=== PATIENT | male | born 1985 | race Two or more races ===

== ENCOUNTER 2024-02-23 02:19 | Emergency (ER) | payer MEDICAID, SELFPAY ==
--- NOTE | 2024-02-23 02:26 | EKG_ITS ---
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
--- NOTE | 2024-02-23 02:30 | EDNOTE_ITS ---
ED General RME/HPI General Chief complaint: Medical Clearance Stated complaint: DETENTION CLEARANCE Time Seen by Provider: 02/23/24 02:25 Arrival date/time: 02/23/24 02:19 RME / HPI RME / HPI narrative: This section includes all my notes and documentations, including HPI, PE, and ED course. Tushar Orozco MD HPI: 39yo male with a history of aFib BIB [facility] presents to the ED for a medical clearance. Patient states his heart has been beating fast for the last 2 weeks. He states he has not picked up his medications for his aFib. He denies any chest pain, shortness of breath, dizziness or any other associated symptoms. Endorses drinking alcohol tonight, but denies illicit drug use. No other complaints reported. ROS: Respiratory: negative except as documented in HPI. Gastrointestinal: negative except as documented in HPI. Genitourinary: negative except as documented in HPI. Musculoskeletal: negative except as documented in HPI. Skin: negative except as documented in HPI. Neurological: negative except as documented in HPI. Physical Exam: General: Alert and oriented. No acute distress. Eyes: Conjunctivae and lids clear. EOMI. PERRL. ENT: No nasal congestion. Pharynx normal. Tympanic membrane normal bilaterally. Neck: Supple. No lymphadenopathy. No JVD. Heart: Tachycardic. Lungs: No respiratory distress. Good air movement. No rhonchi, wheezing, rales. Chest: No tenderness. Abdomen: Soft and nontender. Normal bowel sounds. No distension. No rebound or guarding. Back: No CVA tenderness. Legs: No clubbing, cyanosis, edema. Skin: Warm and dry. Neuro: Alert and oriented X 3. Cranial Nerves II-XII grossly intact. No peripheral motor deficits. Musculoskeletal: All major joints and bones are not tender with no limited ROM. Diagnostic tests unremarkable for elevated serum alcohol and UDS positive for marijuana. Oral metoprolol given for high BP and tachycardia. He remained stable. Made decision to medical clear him for incarceration. Discharge instructions from Dr. Orozco: 1. After extensive evaluation, there is no life-threatening condition. Such as heart attack or pulmonary embolism (blood clots in your lungs) or pneumothorax (collapsed lung). 2. But you were intoxicated with marijuana on board. 3. Try to quit alcohol and drugs to prevent serious and potentially fatal injuries and illnesses. 4. See a private doctor on 02/25/2024 or when you are released. If needed, ask for help with quitting alcohol and drugs. To make sure there is no serious underlying heart condition, ask to help you get more tests for your heart that cannot be done here in the ER. Such as Holter Monitor (cardiac monitoring at home from a day to even a month), heart stress test (on treadmill or with medication), echocardiogram (imaging of your heart structures), heart catherization (checking for blockages in your heart arteries), and a referral to see a Power Generating Plant Operator. 5. Seek immediate medical care with worsening or with any concerns. Related Data Home Medications ?Medication ?Instructions ?Recorded ?Confirmed sertraline 100 mg tablet (Zoloft) 100 mg PO QDAY 07/02/18 07/27/19 amlodipine 5 mg tablet (Norvasc) 5 mg PO BID High Blood Pressure 07/27/19 07/27/19 Allergies Allergy/AdvReac Type Severity Reaction Status Date / Time Penicillins Allergy Severe DIFFICULTY Verified 06/17/21 08:44 BREATHING Review of Systems Review of Systems Systems Reviewed: All systems reviewed, normal except as documented ED Exam Narrative Physical exam: As noted in HPI. Course Course Course Narrative: CXR is ordered for determining the etiology of palpitations. Quality Measures none Orders Category Date Time Status EKG (ED ONLY) *Do not use* NOW Care 02/23/24 02:26 Completed Saline [Insert IV] NOW Care 02/23/24 02:34 Completed EKG (ED Only) Stat Exams 02/23/24 02:26 Draft XR chest 1V portable Stat Exams 02/23/24 02:35 Completed Alcohol, Blood Medical Stat Lab 02/23/24 02:47 Completed BNP [B-Type Natriuretic Peptide] Stat Lab 02/23/24 02:47 Completed CBC Stat Lab 02/23/24 02:47 Completed CMP [Comprehensive Metabolic Panel] Stat Lab 02/23/24 02:47 Completed D-Dimer Stat Lab 02/23/24 02:47 Completed Drug Screen,Urine Stat Lab 02/23/24 03:32 Completed Magnesium Stat Lab 02/23/24 02:47 Completed TSH [Thyroid Stimulating Hormone] Stat Lab 02/23/24 02:47 Completed Troponin I Stat Lab 02/23/24 02:47 Completed Metoprolol Tartrate Inj [Lopressor Inj] Med 02/23/24 02:34 Discontinued 2.5 mg IVP X1 ONE Metoprolol Tartrate [Lopressor] Med 02/23/24 03:03 Discontinued 25 mg PO X1 ONE Metoprolol Tartrate [Lopressor] Med 02/23/24 02:34 Discontinued 50 mg PO X1 ONE Vital Signs Vital signs: Vital Signs Temperature 98.8 F 02/23/24 02:36 Pulse Rate 140 H 02/23/24 02:36 Respiratory Rate 16 02/23/24 02:36 Blood Pressure 141/121 H 02/23/24 02:36 Pulse Oximetry (%) 96 02/23/24 02:36 Oxygen Delivery Method Room Air 02/23/24 02:36 [facility] Patient data External records reviewed:: [facility] previous records (Per chart review, patient was seen here on 05/25/22 for alcohol intoxication.) Clinical information provided by:: patient Social determinants that could affect healthcare access:: alcohol use Patient has the following chronic illnesses:: aFib How is presenting disease/condition affected by chronic disease/condition?: c aused by Evaluation data The following diagnostics were reviewed and interpreted by me:: lab results, radiology exam(s) and EKG tracing(s) (My interpretation of the EKG is: Sinus tachycardia versus 2:1 atrial flutter (130 bpm) with nonspecific ST-T changes. Tushar Orozco MD) Lab and/or radiology exams considered but not ordered:: none Interpretation Summary: See HPI. Medications Medications considered but not ordered:: none Medication administrations:: Medication Administration History Discontinued Medications Metoprolol Tartrate (Metoprolol Tartrate 25 Mg Tablet) 50 mg PO X1 ONE Stop: 02/23/24 02:35 Last Admin: 02/23/24 03:17 Dose: Not Given Documented By: RC Non-Admin Reason: Discontinued Metoprolol Tartrate (Metoprolol Tartrate Inj 1 Mg/Ml Amp 5 Ml) 2.5 mg IVP X1 ONE Stop: 02/23/24 02:35 Last Admin: 02/23/24 03:17 Dose: Not Given Documented By: RC Non-Admin Reason: Discontinued Metoprolol Tartrate (Metoprolol Tartrate 25 Mg Tablet) 25 mg PO X1 ONE Stop: 02/23/24 03:04 Last Admin: 02/23/24 03:25 Dose: 25 mg Documented By: TC see above, if any Consultations Consultation(s) initiated? (list below): No Diagnosis Differential Diagnosis ED Complaint MDM: aFib, anxiety, alcohol intoxication, drug intoxication Most likely diagnosis given after review of the tests above:: see below Admission Indicated Admission indicated?: not indicated Explain why admission is indicated or not indicated:: Admission criteria not met Admission Request Was there a request for admission?: No Disposition Plan Disposition Plan: Discharge Discharge Attestation Discharge Attestation: The patient and all family members were given an opportunity to ask questions and understood the discharge instructions. Discharge instructions specifically effects, indications for sooner follow up or return to the emergency department, and the expected course of current diagnosis. Patient condition: Stable Medical Decision Making Differential Diagnosis Differential Diagnosis: aFib, anxiety, alcohol intoxication, drug intoxication Lab Data 02/23/24 02:47 02/23/24 02:47 Labs: Lab Results 02/23/24 02/23/24 Range/Units 02:47 03:32 WBC 9.8 (3.8-10.6) Thou/mm3 RBC 5.38 (4.50-5.90) Miln/mm3 Hgb 16.3 H (13.5-16.0) g/dL Hct 45.4 (41.0-53.0) % MCV 84 (80-100) fL MCH 30.3 (25.0-35.0) pg MCHC 35.9 (31.0-37.0) g/dl RDW Std Deviation 42.2 (35.1-43.9) fL Plt Count 239 (140-440) Thou/mm3 Neut % (Auto) 63 (37-80) % Lymph % (Auto) 26 (10-50) % [place] % (Auto) 10 (0-12) % Eos % (Auto) 1 (0-10) % Baso % (Auto) 1 (0-2.5) % Neut # (Auto) 6.1 (1.8-7.7) Thou/mm3 Lymph # (Auto) 2.5 (1.0-4.8) Thou/mm3 [place] # (Auto) 1.0 H (0.0-0.8) Thou/mm3 Eos # (Auto) 0.1 (0.0-0.5) Thou/mm3 Baso # (Auto) 0.1 (0.0-0.2) Thou/mm3 Immature Gran # (Auto) 0.05 H (0.00-0.00) Thou/mm3 Absolute Nucleated RBC 0.00 (0.00-0.00) Thou/mm3 Immature Gran % 1 H (0-0) % Nucleated RBC % 0 (0) /100 WBC D-Dimer < 250 (<600) ng/mL Sodium 142 (136-145) mMol/L Potassium 3.8 (3.4-5.1) mMol/L Chloride 109 H (98-107) mMol/L Carbon Dioxide 21.9 (20.0-31.0) mMol/L Anion Gap 11 (7-16) BUN 10 (9-23) mg/dL Creatinine 1.0 (0.6-1.3) mg/dL Estim Creat Clear Calc 100.2 (>60) mL/min eGFR > 60 (60 - ) See Note BUN/Creatinine Ratio 10 L (12-20) Ratio Glucose 98 (74-106) mg/dL Calculated Osmolality 282 (275-295) Calcium 9.3 (8.3-10.6) mg/dL Corrected Calcium 9.3 (8.5-10.1) mg/dL Magnesium 2.1 (1.6-2.6) mg/dL Total Bilirubin 0.4 (0.3-1.2) mg/dL AST 12 (0-34) U/L ALT 11 (10-49) U/L Alkaline Phosphatase 98 (46-116) U/L Troponin I < 0.002 (0.0-0.045) ng/mL B-Natriuretic Peptide < 20 (0-100) pg/mL Total Protein 7.6 (5.7-8.2) gm/dL Albumin 4.9 (3.5-5.0) gm/dL Globulin 2.7 (2.3-3.5) gm/dL Albumin/Globulin Ratio 1.8 (1.2-2.2) TSH 2.94 (0.55-4.78) uIU/mL Urine Opiates Screen Negative (Negative) Urine Fentanyl Screen Negative (Negative) Ur Barbiturates Screen Negative (Negative) U Amphetamin/Meth Scrn Negative (Negative) U Benzodiazepines Scrn Negative (Negative) U Cocaine Metab Screen Negative (Negative) U Marijuana (THC) Screen Positive A (Negative) Ethyl Alcohol 185.2 H (0-10.0) mg/dL Discharge Plan Plan Patient Disposition: Senior Care/Court/Law Prescriptions/Referrals Prescriptions/Med Rec: No Action sertraline [Zoloft] 100 mg Tablet 100 mg PO QDAY amlodipine [Norvasc] 5 mg Tablet 5 mg PO BID Referrals: Glenna Armstrong FNP [Primary Care Provider] - In 1 week Problem List Clinical Impression: Alcohol intoxication Patient/Caregiver Discharge Instructions Discharge Activity: activity as tolerated Education Materials: ED Alcohol Intoxication Additional Instructions: Discharge instructions from Dr. Orozco: 1. After extensive evaluation, there is no life-threatening condition.? Such as heart attack or pulmonary embolism (blood clots in your lungs) or pneumothorax (collapsed lung). 2. But you were intoxicated with marijuana on board. 3. Try to quit alcohol and drugs to prevent serious and potentially fatal injuries and illnesses. 4. See a private doctor on 02/25/2024 or when you are released. If needed, ask for help with quitting alcohol and drugs. To make sure there is no serious underlying heart condition, ask to help you get more tests for your heart that cannot be done here in the ER.? Such as Holter Monitor (cardiac monitoring at home from a day to even a month), heart stress test (on treadmill or with medication), echocardiogram (imaging of your heart structures), heart catherization (checking for blockages in your heart arteries), and a referral to see a Power Generating Plant Operator. 5. Seek immediate medical care with worsening or with any concerns.?? Print Language: Wallisian
--- NOTE | 2024-02-23 02:35 | XR_ITS ---
Examination: AP chest single view Technique: AP portable upright chest single view Exam date and time: February 23, 2024 0252 hrs. Comparison 12/26/2017 Indications: Shortness of breath today. Findings: Subtle opacity at the left lung base Normal heart size The osseous structures are intact Impression: Suspicious for early left lower lobe pneumonia
[2024-02-23 02:36] VITALS: BP 141/121; PULSE 140; RESP 16; TEMP 37.1; O2SAT 96
[2024-02-23 02:39] VITALS: BMI 26.6
[2024-02-23 02:53] VITALS: BP 123/75; PULSE 121; RESP 18; O2SAT 99
[2024-02-23 03:07] LABS: Basophils # (Auto) 0.1 Thou/mm3 (0.0-0.2); Basophils % (Auto) 1 % (0-2.5); Eosinophils # (Auto) 0.1 Thou/mm3 (0.0-0.5); Eosinophils % (Auto) 1 % (0-10); Hematocrit 45.4 % (41.0-53.0); Hemoglobin 16.3 g/dL (13.5-16.0); Immature Granulocytes % (Auto) 1 % (0-0); Immature Granulocytes Auto 0.05 Thou/mm3 (0.00-0.00); Lymphocytes # (Auto) 2.5 Thou/mm3 (1.0-4.8); Lymphocytes % (Auto) 26 % (10-50); Mean Corpuscular HGB Conc 35.9 g/dl (31.0-37.0); Mean Corpuscular Hemoglobin 30.3 pg (25.0-35.0); Mean Corpuscular Volume 84 fL (80-100); Monocytes % (Auto) 10 % (0-12); Neutrophils # (Auto) 6.1 Thou/mm3 (1.8-7.7); Neutrophils % (Auto) 63 % (37-80); Nucleated Red Blood Cell % 0 /100 WBC (0); Platelet Count 239 Thou/mm3 (140-440); RDW Standard Deviation 42.2 fL (35.1-43.9); Red Blood Count 5.38 Miln/mm3 (4.50-5.90); White Blood Count 9.8 Thou/mm3 (3.8-10.6)
[2024-02-23 03:25] VITALS: BP 121/79; PULSE 115
[2024-02-23] MEDS: METOPROLOL TARTRATE 25 MG TABLET PO (03:25)
[2024-02-23 03:27] LABS: Alanine Aminotransferase 11 U/L (10-49); Albumin, Serum 4.9 gm/dL (3.5-5.0); Albumin/Globulin Ratio 1.8 (1.2-2.2); Alcohol, Blood Medical 185.2 mg/dL (0-10.0); Alkaline Phosphatase 98 U/L (46-116); Anion Gap 11 (7-16); Aspartate Amino Transferase 12 U/L (0-34); BUN/Creatinine Ratio 10 Ratio (12-20); Bilirubin,Total 0.4 mg/dL (0.3-1.2); Blood Urea Nitrogen 10 mg/dL (9-23); Calcium 9.3 mg/dL (8.3-10.6); Calcium (Corrected) 9.3 mg/dL (8.5-10.1); Carbon Dioxide 21.9 mMol/L (20.0-31.0); Chloride 109 mMol/L (98-107); D-Dimer < 250 ng/mL (<600); Estimated Creatinine Clearance 100.2 mL/min (>60); Globulin 2.7 gm/dL (2.3-3.5); Glucose 98 mg/dL (74-106); Magnesium 2.1 mg/dL (1.6-2.6); Osmolality,Calculated 282 (275-295); Potassium 3.8 mMol/L (3.4-5.1); Sodium 142 mMol/L (136-145); Thyroid Stimulating Hormone 2.94 uIU/mL (0.55-4.78); Total Protein 7.6 gm/dL (5.7-8.2); Troponin I < 0.002 ng/mL (0.0-0.045); eGFR > 60 See Note
[2024-02-23 03:34] LABS: B-Type Natriuretic Peptide < 20 pg/mL (0-100)
[2024-02-23 04:03] LABS: Amphetamine/Methamp Scrn,U Negative (Negative); Barbiturate Screen,Urine Negative (Negative); Benzodiazepines Screen,Urine Negative (Negative); Benzoylecgonine Screen, Ur Negative (Negative); Fentanyl Screen,Urine Negative (Negative); Opiate Screen,Urine Negative (Negative); THC Screen,Urine Positive (Negative)
[2024-02-23 04:25] VITALS: BP 146/81; PULSE 116; RESP 19; TEMP 36.7; O2SAT 98
== END 2024-02-23 04:26 ==
PROVIDERS: Emergency Provider Emergency Medicine; PCP Nurse Practitioner
DX: Z02.89 Encounter for other administrative examinations (principal); F10.929 Alcohol use, unspecified with intoxication, unspecified; I48.92 Unspecified atrial flutter; R06.02 Shortness of breath; I48.91 Unspecified atrial fibrillation; Y90.6 Blood alcohol level of 120-199 mg/100 ml
CPT/HCPCS: 36415; 71045; 80053; 80307; 80320; 83735; 83880; 84443; 84484; 85025; 85379; 93005; 99283; A9270; G0480

== ENCOUNTER 2024-04-18 15:22 | Inpatient (IN) | payer MEDICAID, SELFPAY ==
[2024-04-18] VITALS (7 sets, daily range): BP systolic 76–109; BP diastolic 58–70; PULSE 99–108; RESP 16–90; TEMP 36.6–36.7; O2SAT 91–100; BMI 28.0
--- NOTE | 2024-04-18 15:33 | EKG_ITS ---
[facility] Test Date: 2024-04-18 Pat Name: ARMANDO CISNEROS Department: Room: - Gender: Male Manager Trust: : 1985 Requested By: Uyen Holm Order Number: [id number] Reading MD: Uyen Holm Measurements Intervals [place] Rate: 104 P: 35 NV: 178 QRS: 38 QRSD: 84 T: 40 QT: 372 QTc: 491 Interpretive Statements SINUS TACHYCARDIA ABNORMAL RHYTHM ECG Compared to ECG 02/23/2024 02:44:05 Atrial flutter no longer present /store/S0/[id number]
--- NOTE | 2024-04-18 15:33 | XR_ITS ---
Examination: AP chest single view Technique: AP portable upright chest single view Examination type: April 18, 2024 1605 hrs. Comparison July 24, 2023 Indications: Such as pain today. Findings: Suspicious for early left perihilar pneumonia Normal heart size. The osseous structures are intact Impression: Suspicious for early left perihilar pneumonia
[2024-04-18] MEDS: SODIUM CHLORIDE 0.9% 1000 ML 1,000 ML 999 ML IV ×2 (15:47)
--- NOTE | 2024-04-18 15:48 | PD.EDAMS ---
Altered Mental Status RME/HPI General Chief Complaint: Altered Mental Status Stated Complaint: AMS Time Seen by Provider: 04/18/24 15:32 Arrival date/time: 04/18/24 15:22 RME / HPI RME / HPI narrative: DR. CRUZ MAIN ED EVALUATION: 39 year old male presents to the Emergency Department [facility] with complaint of AMS, possible overdose. Last well known time 10 AM yesterday. Patient was found with vomit all over and multiple psych medication bottles which were empty per EMS. Trazodone, sertraline, lorazepam, gabapentin. Medications were refilled 1 week ago. Patient denies taking the medications. PMHx: Anxiety, hypertension Social Hx: Alcohol use. Related Data Home Medications ?Medication ?Instructions ?Recorded ?Confirmed sertraline 100 mg tablet (Zoloft) 100 mg PO QDAY 07/02/18 07/27/19 amlodipine 5 mg tablet (Norvasc) 5 mg PO BID High Blood Pressure 07/27/19 07/27/19 Allergies Allergy/AdvReac Type Severity Reaction Status Date / Time Penicillins Allergy Severe DIFFICULTY Verified 06/17/21 08:44 BREATHING Review of Systems Review of Systems ROS Unobtainable: unobtainable due to mental status Past Medical History Past Medical History NEUROLOGIC: Positive Seizures CARDIAC: Positive Hypertension; Negative Cardiac Disorders, Atrial Fibrillation or Congestive Heart Failure RESPIRATORY: Negative Chronic Obstructive Pulmonary Disease (COPD) or Asthma GENITOURINARY: Negative Renal Disease ENDOCRINE: Negative Diabetes Mellitus Type 1 or Diabetes Mellitus Type 2 HEMATOLOGIC: Negative Sickle Cell Disease PSYCHO/SOCIAL: Positive Depression and Anxiety Family History FAMILY HISTORY: Positive Family Cardiac Disorders Social History SMOKING STATUS: Never smoker SUBSTANCE USE: does not use ED Exam Narrative Physical exam: GENERAL APPEARANCE: altered, answering questions with slurred speech, well-developed, well-nourished; patient had vomit on clothing and in the mouth VITALS: All vitals were reviewed and the pulse ox is 100% on room air, which is normal according to my interpretation. HEENT: Normocephalic, atraumatic; pupils 5 mm and reactive to light;mucous membranes pink, moist; vomit in the mouth NECK: Supple LUNGS: CTABL; no wheezes, no rales, no rhonchi HEART: Regular rate, regular rhythm; normal S1, S2; no murmurs ABDOMEN: non distended; normal BS; soft, no tenderness, no guarding, no rebound; no masses, no organomegaly, no hernia BACK: no CVA tenderness EXTREMITIES: atraumatic; no edema NEUROLOGIC: altered, answering questions with slurred speech PSYCHIATRIC: unobtainable SKIN: warm, dry, normal color; no rashes Course Course Course Narrative: Patient presented with altered mental status, somnolent, vomit on his clothing and his mouth on his face. Concern for aspiration. Patient suctioned by respiratory therapist. Encouraged to cough and clear her airway. Reviewed records. Patient has a history of depression benzodiazepine abuse and withdrawal seizures. Presentation may be consistent with seizure. Seizure precautions placed. EEG ordered. 1735: Discussed with resident for admission [address] Toro for consult Orders Category Date Time Status Dam Tender NOW Care 04/18/24 15:33 Active EKG (ED ONLY) *Do not use* NOW Care 04/18/24 15:33 Completed Nasopharyngeal Suction NEEDED Care 04/18/24 15:30 Active Consult to Neurology / Tele-Neurology Stat Cons 04/18/24 17:51 Active Referral Psych Eval Stat Cons 04/18/24 17:[address] head/brain wo con Stat Exams 04/18/24 15:59 Completed EKG (ED Only) Stat Exams 04/18/24 15:33 Draft XR chest 1V portable Stat Exams 04/18/24 15:33 Completed ABG [Arterial Blood Gas] Stat Lab 04/18/24 17:52 Completed Alcohol, Blood Medical Stat Lab 04/18/24 15:49 Completed Ammonia Stat Lab 04/18/24 15:49 Completed Blood Culture (Lab) Stat Lab 04/18/24 17:27 Received CBC Stat Lab 04/18/24 15:49 Completed Comprehensive Metabolic Panel Stat Lab 04/18/24 15:49 Completed Drug Screen,Urine Stat Lab 04/18/24 17:15 Completed Lactate (Lactic Acid) Stat Lab 04/18/24 17:27 Completed Lipase Stat Lab 04/18/24 15:49 Completed Magnesium Stat Lab 04/18/24 15:49 Completed Procalcitonin Stat Lab 04/18/24 17:27 Completed Salicylate Stat Lab 04/18/24 17:27 Completed Troponin I Stat Lab 04/18/24 15:49 Completed UA, C/S IF [Urinalysis, C/S if Indicated] Stat Lab 04/18/24 17:15 Completed Levofloxacin/D5w 750Mg Ivpb [Levaquin Ivpb] Med 04/18/24 17:08 Discontinued 750 mg in 150 ml IV X1 Ondansetron Inj [Zofran Inj] Med 04/18/24 15:34 Discontinued 4 mg IV X1 ONE Sodium Chloride 0.9% 1000 ml [Ns] 1,000 ml Med 04/18/24 15:43 Discontinued IV 999 mls/hr Sodium Chloride 0.9% 1000 ml [Ns] 1,000 ml Med 04/18/24 15:45 Discontinued IV 999 mls/hr EEG Awake and Drowsy Stat RT 04/18/24 15:57 Ordered Oxygen Delivery NOW RT 04/18/24 16:22 Active Vital Signs Vital signs: Vital Signs Pulse Rate 105 H 04/18/24 15:33 Altered Mental Status MDM Narrative MDM Narrative:: Keisha Ham am scribing for and in the presence of Dr. Cruz. Patient data External records reviewed:: [facility] previous records (Reviewed last ED visit dated 04/24/23, discharged with the following: Alcohol intoxication) and EMS form Clinical information provided by:: patient and EMS Social determinants that could affect healthcare access:: alcohol use Patient has the following chronic illnesses:: Anxiety, hypertension How is presenting disease/condition affected by chronic disease/condition?: exacerbated by Evaluation data The following diagnostics were reviewed and interpreted by me:: lab results, radiology exam(s) and EKG tracing(s) (EKG at 1539 hours: sinus tachycardia, rate 104, no STEMI,) Lab and/or radiology exams considered but not ordered:: none Interpretation Summary: Procedure(s): CT head/brain wo [facility] Accession Number(s): [id number] cc: Jhoan Kuo MD; Uyen Cruz MD~ Examination: CT brain head without contrast. 2-D sagittal coronal reconstructions Date and time of exam:April 18, 2024 at 1623 hrs. Comparison: May 25, 2022 Indications: Onset altered mental status today. CTDI: vol (mGy):51.4 DLP: (mGycm):1115 Technique: Multiple CT axial sections of the brain have been obtained, 5 mm slice thickness. Contrast has not been administered. 2-D sagittal, coronal reconstructions have been obtained Low dose protocols were performed. One or more of the following dose reduction techniques were used; automated exposure control, adjustment of the mA and/or KV according to patient size, use of iterative reconstruction technique. Findings: No significant ventricular enlargement. Intra-axial or extra-axial hemorrhage density is not seen. No mass effect or midline shift Basal cisterns are not remarkable. Fourth ventricle is midline. Cranial vault intact. Impression: Negative for acute hemorrhage, mass effect or midline shift Advise clinical correlation follow up accordingly Dictated By: Jhoan Kuo MD Procedure(s): XR chest 1V portable Accession Number(s): [id number] cc: Jhoan Kuo MD; Uyen Cruz MD~ Examination: AP chest single view Technique: AP portable upright chest single view Examination type: April 18, 2024 1605 hrs. Comparison July 24, 2023 Indications: Such as pain today. Findings: Suspicious for early left perihilar pneumonia Normal heart size. The osseous structures are intact Impression: Suspicious for early left perihilar pneumonia Dictated By: Jhoan Kuo MD Medications / Prescriptions Medications or Prescriptions considered but not ordered:: none Medication administrations:: Medication Administration History Dextrose (Dextrose 50%-Water Inj 50 Ml Syringe) 25 ml IV Q15MIN PRN PRN Reason: BG 50-70 responsive npo pt Stop: 05/18/24 18:23 Dextrose (Dextrose 50%-Water Inj 50 Ml Syringe) 50 ml IV Q15MIN PRN PRN Reason: BG <50 OR BG <70 & pt unresponsive Stop: 05/18/24 18:23 Glucagon (Glucagon Inj 1 Mg Vial) 1 mg IM Q15MIN PRN PRN Reason: BG <70, and no IV access Heparin Sodium (Porcine) (Heparin Sod Inj 5000 Unit/Ml Vial) 5,000 unit SC BID [facility] Stop: 05/02/24 20:59 Last Admin: 04/18/24 20:50 Dose: 5,000 unit Documented By: GONZALO Co-signed By: BIANKA Metronidazole (Flagyl 500 Mg Iv) 500 mg in 100 mls @ 200 mls/hr IV Q8HR [facility] Stop: 04/25/24 18:25 Last Infusion: 04/18/24 20:14 Dose: Infused Documented By: Admin: 04/18/24 19:45 Dose: 200 mls/hr Documented By: GONZALO Cefepime HCl 1 gm/ Sodium (Chloride) 50 mls @ 100 mls/hr IV Q12HR [facility] Stop: 04/25/24 18:29 Sodium Chloride (Ns) 1,000 mls @ 125 mls/hr IV .Q8H [facility] Stop: 05/18/24 18:30 Last Admin: 04/18/24 19:59 Dose: 125 mls/hr Documented By: GONZALO Lorazepam (Lorazepam 2 Mg/Ml Vial) 2 mg IVP Q30MIN PRN PRN Reason: Breakthrough Seizures Stop: 04/23/24 18:44 Pharmacy Consult (Pharmacy Renal Dose Adjustment 1 Ea) 1 each XX PRN PRN PRN Reason: CONSULT Stop: 05/18/24 18:22 Pharmacy Consult (Vancomycin Pharmacy To Dose 1 Each Each) 1 each IV QDAY [facility] Stop: 05/18/24 18:29 Last Admin: 04/18/24 20:30 Dose: Not Given Documented By: GONZALO Non-Admin Reason: PHARMACY TO DOSE ORDER. Scopolamine (Scopolamine 1 Mg Tdsy) 1 mg TOP Q3D PRN PRN Reason: nausea Stop: 05/18/24 18:29 Discontinued Medications Sodium Chloride (Ns) 1,000 mls @ 999 mls/hr IV .Q1H1M ONE Stop: 04/18/24 16:43 Last Infusion: 04/18/24 17:22 Dose: Infused Documented By: Admin: 04/18/24 15:47 Dose: 999 mls/hr Documented By: CINDY Sodium Chloride (Ns) 1,000 mls @ 999 mls/hr IV .Q1H1M ONE Stop: 04/18/24 16:45 Last Infusion: 04/18/24 17:22 Dose: Infused Documented By: Admin: 04/18/24 15:47 Dose: 999 mls/hr Documented By: CINDY Levofloxacin/Dextrose (Levaquin Ivpb) 750 mg in 150 mls @ 100 mls/hr IV X1 ONE Stop: 04/18/24 18:37 Last Admin: 04/18/24 19:33 Dose: Not Given Documented By: GONZALO Non-Admin Reason: Cancelled by Provider Sodium Chloride (Ns) 1,000 mls @ 80 mls/hr IV .[id number] [facility] Stop: 05/18/24 18:16 Last Admin: 04/18/24 20:01 Dose: Not Given Documented By: GONZALO Non-Admin Reason: Discontinued Cefepime HCl 1 gm/ Sodium (Chloride) 50 mls @ 100 mls/hr IV X1 ONE Stop: 04/18/24 19:14 Last Infusion: 04/18/24 20:15 Dose: Infused Documented By: Admin: 04/18/24 19:45 Dose: 100 mls/hr Documented By: GONZALO Magnesium Sulfate (Magnesium Sulfate Ivpb) 2 gm in 50 mls @ 25 mls/hr IV X1 ONE Stop: 04/18/24 20:33 Last Admin: 04/18/24 19:57 Dose: 25 mls/hr Documented By: GONZALO Vancomycin HCl 1,500 mg/ (Sodium Chloride) 500 mls @ 200 mls/hr IV X1 ONE Stop: 04/18/24 21:14 Last Admin: 04/18/24 20:28 Dose: 10 mg/min, 200 mls/hr Documented By: GONZALO Lorazepam (Lorazepam 2 Mg/Ml Vial) 2 mg IVP Q10MIN PRN PRN Reason: SEIZURES Stop: 04/23/24 18:44 Ondansetron HCl (Ondansetron Inj 2 Mg/Ml Inj 2 Ml) 4 mg IV X1 ONE Stop: 04/18/24 15:35 Last Admin: 04/18/24 16:49 Dose: 4 mg Documented By: CINDY Sodium Chloride (Sodium Chloride Rt 10% 15 Ml Nebu) 5 ml INH X1 ONE Stop: 04/18/24 19:32 see above Consultations Consultation(s) initiated? (list below): Yes Consultation #1 (Physician, Specialty, Details): Discussed test HPI, PMHx, lab, radiology results and/or management with hospitalist. Will admit for further evaluation and management. Accepts patient for admission. Time: 17:46 Diagnosis Differential diagnosis altered mental status: alcoholic intoxication, altered mental status, subarachnoid hemorrhage and other (overdose) Most likely diagnosis given after review of the tests above:: As noted below. Admission Indicated Admission indicated?: indicated Admission Request Was there a request for admission?: Yes Admission Attestation Admission request attestation: Discussed case with [] from Hospitalist service regarding admission. Discussed patients ED course, exam findings, labs, and radiology results. The Hospitalist [agrees,declines] to accept the patient for admission. Disposition Plan Disposition Plan: Admit Discharge Plan Plan Patient Disposition: Admit Acute Care w/in Hospital Problem List Clinical Impression: Acute kidney injury, Vomiting, Pneumonia, Altered mental status, Aspiration into airway
--- NOTE | 2024-04-18 15:59 | XR_ITS ---
Examination: CT brain head without contrast. 2-D sagittal coronal reconstructions Date and time of exam:April 18, 2024 at 1623 hrs. Comparison: May 25, 2022 Indications: Onset altered mental status today. CTDI: vol (mGy):51.4 DLP: (mGycm):1115 Technique: Multiple CT axial sections of the brain have been obtained, 5 mm slice thickness. Contrast has not been administered. 2-D sagittal, coronal reconstructions have been obtained Low dose protocols were performed. One or more of the following dose reduction techniques were used; automated exposure control, adjustment of the mA and/or KV according to patient size, use of iterative reconstruction technique. Findings: No significant ventricular enlargement. Intra-axial or extra-axial hemorrhage density is not seen. No mass effect or midline shift Basal cisterns are not remarkable. Fourth ventricle is midline. Cranial vault intact. Impression: Negative for acute hemorrhage, mass effect or midline shift Advise clinical correlation follow up accordingly
[2024-04-18 16:00] LABS: Basophils % (Auto) 0 % (0-2.5); Eosinophils % (Auto) 0 % (0-10); Hematocrit 47.8 % (41.0-53.0); Immature Granulocytes % (Auto) 1 % (0-0); Immature Granulocytes Auto 0.27 Thou/mm3 (0.00-0.00); Lymphocytes # (Auto) 0.4 Thou/mm3 (1.0-4.8); Lymphocytes % (Auto) 2 % (10-50); Mean Corpuscular HGB Conc 35.6 g/dl (31.0-37.0); Mean Corpuscular Hemoglobin 29.6 pg (25.0-35.0); Mean Corpuscular Volume 83 fL (80-100); Monocytes # (Auto) 1.3 Thou/mm3 (0.0-0.8); Monocytes % (Auto) 6 % (0-12); Neutrophils % (Auto) 90 % (37-80); Nucleated Red Blood Cell % 0 /100 WBC (0); Platelet Count 247 Thou/mm3 (140-440); RDW Standard Deviation 38.5 fL (35.1-43.9); Red Blood Count 5.74 Miln/mm3 (4.50-5.90)
--- NOTE | 2024-04-18 16:11 | PC.CC ---
Patient was BIBA from home due to possible intentional overdose. EMS reports the parents of the patient went to the patient's home yesterday and he did not want to open the door. They went to his home today and force themselves in as he was not responding. Patient was found unconscious with vomit surrounded by empty pill bottles: Gabapentin 300mg, Trazodone 300mg, and Sertraline HCL 100mg. Per RN Madhu, Patient is denying suicide attempt but reports he had attempt by overdose in the past.
[2024-04-18 16:25] LABS: Ammonia 21 uMol/L (11-32)
[2024-04-18 16:47] LABS: Alanine Aminotransferase 22 U/L (10-49); Albumin, Serum 5.1 gm/dL (3.5-5.0); Albumin/Globulin Ratio 1.8 (1.2-2.2); Alcohol, Blood Medical < 3.0 mg/dL (0-10.0); Alkaline Phosphatase 74 U/L (46-116); Anion Gap 16 (7-16); Aspartate Amino Transferase 40 U/L (0-34); BUN/Creatinine Ratio 7 Ratio (12-20); Bilirubin,Total 0.5 mg/dL (0.3-1.2); Blood Urea Nitrogen 29 mg/dL (9-23); Calcium 9.4 mg/dL (8.3-10.6); Calcium (Corrected) 9.4 mg/dL (8.5-10.1); Carbon Dioxide 19.3 mMol/L (20.0-31.0); Chloride 105 mMol/L (98-107); Estimated Creatinine Clearance 24.7 mL/min (>60); Globulin 2.9 gm/dL (2.3-3.5); Glucose 139 mg/dL (74-106); Lipase 43 U/L (12-53); Magnesium 1.9 mg/dL (1.6-2.6); Osmolality,Calculated 287 (275-295); Potassium 4.6 mMol/L (3.4-5.1); Sodium 140 mMol/L (136-145); Troponin I < 0.020 ng/mL (0.0-0.045); eGFR 19 See Note
[2024-04-18] MEDS: ONDANSETRON INJ 2 MG/ML INJ 2 ML 4 MG IV (16:49)
--- NOTE | 2024-04-18 17:30 | PC.NURSE ---
Made contact with mother who is at bedside. Mother reports that this Pt has been depress for the past week because he was suspended from his job and possible lost his job. Mother reports that they both live in the same house hold, and reported that yesterday around 1600hr the Pt seem to be more tired and fatigue. Mother also reports that around 2100hr yesterday she tried to check up on him but the Pt wouldn't open the door to his bedroom so they just left him alone. Today around 1600hr they forced themselves into the room and found the Pt on his bed none responsive and vomit all and empty pill bottles so they called 911.
[2024-04-18 17:46] LABS: Collection Type, Urine Clean Catch
[2024-04-18 17:48] LABS: Lactate (Lactic Acid) 1.8 mMol/L (0.4-2.0)
[2024-04-18 17:57] LABS: Base Excess -8 (-3-3); HCO3 18 mEq/L (20-26); Inspired Oxygen, FIO2 21 %; O2 Saturation 100 % (91-98); PCO2 37 mmHg (32.0-48.0); PO2 134 mmHg (83-108); pH, Arterial 7.29 (7.35-7.45)
[2024-04-18 17:58] LABS: Bilirubin,Urine Negative (Negative); Blood,Urine 1+ (Negative); Clarity,Urine Turbid (Clear/Hazy); Color,Urine Yellow (Lt Yel-Yel); Culture Indicated,Urine Not Indicated; Glucose, Urine Trace (Negative); Hyaline Casts,Urine < 1 /hpf (0-1); Ketones,Urine Negative (Negative); Leukocyte Esterase,Urine Negative (Negative); Nitrite,Urine Negative (Negative); PH,Urine 5.5 (5.0-7.0); Protein,Urine 2+ (Neg - Trace); RBC,Urine 2 /hpf (0-3); Specific Gravity,Urine 1.016 (1.001-1.035); Squamous Epithelial Cell,Urine 2 /hpf (0-5); Urobilinogen,Urine Negative mg/dL (0.0-1.0); WBC,Urine 8 /hpf (0-5)
[2024-04-18 18:06] LABS: Allen Test Performed/OK; Puncture Site Left Radial
[2024-04-18 18:07] LABS: Amphetamine/Methamp Scrn,U Negative (Negative); Barbiturate Screen,Urine Negative (Negative); Benzodiazepines Screen,Urine Positive (Negative); Benzoylecgonine Screen, Ur Negative (Negative); Fentanyl Screen,Urine Negative (Negative); Opiate Screen,Urine Negative (Negative); THC Screen,Urine Negative (Negative)
[2024-04-18 18:15] LABS: Procalcitonin 5.74 ng/ml (0.0-0.49)
[2024-04-18 18:56] LABS: Salicylate < 3.0 mg/dL
--- NOTE | 2024-04-18 19:12 | ESHP_ITS ---
<Statement entered by Terrance Meadows MD - 04/18/24 19:36> This patient is a 39-year-old male with past medical history of epilepsy 3 years ago on unknown antiepileptics as per patient's father, history of depression and insomnia on multiple medications prescribed by multiple physicians on chart review presented to the ED with altered mental status. Per patient's father he was found altered with unknown duration. He was also found to have urine dribbling and fecal incontinence while he was found on the bed. EMS was called and patient was taken to the hospital. On arrival, patient's blood pressure was 76/58, he was tachycardic and afebrile. He was saturating 94% 2 L NC. Labs showed leukocytosis hemoglobin 17.0 erythrocytosis. ABG showed pH 7.29 with pO2 134. HCO3 19.3. Kidney functions showed severe NATALIE with BUN 29 creatinine 4.0 with baseline creatinine of 1.0 on 02/23/2024. UA showed proteinuria blood with some WBCs. U tox was positive for benzodiazepines. Salicylates and alcohol level was negative. Head CT was unremarkable. EKG showed sinus tachycardia with prolonged QTc of 491. Chest x-ray showed early left perihilar pneumonia with possible aspiration. Patient is admitted for acute encephalopathy likely due to drug overdose versus seizures. Neurology has been consulted to evaluate for possible seizure workup/drug overdose. Will follow-up on EEG and per neurology recommendations hold off on antiepileptics until patient has a witnessed seizure we will likely give him loading dose of Keppra 1 g x 1 and Ativan 2 mg every 30 minutes as needed for breakthrough seizures. We are trying to avoid QTc prolonging agents and only giving scopolamine patch for nausea. If needed we can give antihistamines as they are less likely to cause QTc prolongation. We are covering with cefepime, vancomycin and Flagyl to cover for aspiration pneumonia. Patient is allergic to penicillin. Heparin for DVT prophylaxis. Hypoglycemia protocol in place. CK enzyme was normal. We ordered another bolus of fluid as patient received 2 L bolus x 1 in the ED. Will continue with maintenance fluids as well. Patient will need neurochecks every 4 hourly, strict SHAWN's, Davidson catheter insertion, EKG every 6 hourly and will follow-up with neurology recommendations further. Psych evaluation has been ordered by ED physician. Referred to social work msw for further follow-up for suicidal attempt. Patient will be n.p.o. strictly. All labs and orders were reviewed. I saw and examined the patient, and I agree with current management stated by Dr Malik MD,PGY1. Plan of care was discussed with the attending physician and resident physician. Disclaimer: Despite multiple revisions, due to the dictation software being used, the document bellow may not be free of grammatical errors including phonetic/typographic errors. However, this does not deter from our commitment to providing health care in the patient's best interest in mind. Dr. Abdiel MD, PGY 2 Documentation for date of: 04/18/24 HPI History of Present Illness History of present illness: cc: non-responsive Patient is 39-year-old male with a past medical history of generalized anxiety disorder and history of suicide attempts with psychic medication. Patient was brought via EMS with a chief complaint of acute metabolic encephalopathy secondary to overdose on Sertraline, gabapentin, trazodone, and lorazepam. Patient is alert but not oriented only to self, unable to provide reliable history-all history gathered from his father at bedside. Patient's father stated he left for work at approximately 10 PM 04/17/2024 and returned today (04/18/2024) at approximately 3:30 PM when he found his son unconscious with emesis near his body. Patient's father denied seeing hematemesis. Multiple empty bottles of medication were found with recent prescription refills on April 13, 2024 including: Sertraline 100 mg daily, trazodone 300 mg daily, gabapentin 600 mg mg 3 times a day, lorazepam 2 mg 3 times daily as needed. All bottles found empty. 4 bottles of alcohol found near patient's body, each 8 ounces. Patient's father unsure of type of alcohol ingested. Daily stated previous history of suicidal attempts several years ago with a similar method. History of seizures per patient's father. Patient recently lost his job. Poison Control contacted. Admitted on 04/18/2024 for acute metabolic encephalopathy secondary to polypharmacy overdose, possible suicide attempt. ER Course: Patient's vital on admission showed hypotension of 176/58 with tachycardia, heart rate of 105 oxygen saturation 94 on 2 L nasal cannula found to be altered and responsive only to sternal rubs. Elevated leukocytes with a neutrophil shift of 90 high. ABG, showed acidosis likely metabolic given low bicarb. Serum bicarb 19.3. NATALIE noted with a BUN of 29 creatinine 4, creatinine clearance 24.7, BUN/creatinine ratio 7. Lactic acid 1.8. Total creatinine kinase 1119. Procalcitonin elevated 5.4 chest x-ray showing early pneumonia. EKG G showing QT corrected at 491 (cautions with QT prolongation). Head CT negative PMH: Generalized anxiety disorder SI attempts Home Medication: Sertraline 100 mg one a day Gabapentin 600 mg up to three times a day Trazondone 300 mg Lorezapam 2 gm up to three times a day Ondanestron 8 m g Zolpidem phentermine Ceftrizine Social History: Alcohol use, mixes with other prescription medication history of SI attempts patients father denied illicit drug use Allergies: Penicillins Code Status: Full code Review of Systems Review of Systems Narrative Review of Systems: General appearance: NO weight change, NO fatigue, NO weakness, NO fever, NO chills, NO night sweats, No cough, Altered Skin: NO rash, NO itching, NO sores, NO moles HEENT: NO Trauma, NO nausea, NO vomiting, NO visual changes, NO blurry vision, NO double vision, NO tinnitus, NO vertigo, NO ear discharge, NO rhinorrhea, NO stuffiness, NO sneezing, NO allergy, NO epistaxis. NO Hoarseness, NO sore throat, NO swollen neck. Cardiac: NO Palpitations, NO dyspnea on exertion, NO orthopnea, NO paroxysmal nocturnal dyspnea, NO edema Respiratory: NO Shortness of Breath, NO Wheezing, NO Cough, NO Sputum, NO hemoptysis GI:NO appetite, NO nausea, NO vomiting, NO dysphagia, NO changes in bowel frequency, NO stool color, NO diarrhea, NO constipation, NO hemetemesis, NO hemorrhoids, NO melena, NO hematechezia, NO abdominal pain, NO jaundice Renal: NO frequency, NO hesitancy, NO urgency, NO hematuria, NO nocturia, NO incontinence MSK: NO muscle weakness, NO gout, NO arthritis, NO muscle stiffness Neuro: NO headaches, NO tremors, NO weakness, NO paralysis, NO seizures, NO loss of consciousness, NO numbness. Hem: NO anemia, NO easy bruising/bleeding, NO petechiae, NO purpura Endo: NO heat/cold intolerance, NO excessive sweating, NO polyuria, NO polydipsia, NO polyphagia, NO thyroid problems, NO diabetes Pysch: NO mood, Yes anxiety, possible depression Exam Vital Signs Temp Pulse Resp BP Pulse Ox O2 Del Method O2 Flow Rate 98.0 F 99 18 109/70 96 Nasal Cannula 2 04/18/24 17:00 04/18/24 17:00 04/18/24 17:00 04/18/24 17:00 04/18/24 17:00 04/18/24 17:00 04/18/24 17:00 Narrative Exam General Appearance: Alert & Oriented X1, well-nourished male who is lying in bed appearing altered HEENT: Skull symmetrical and atraumatic. Conjunctivae pink and moist. Pupils equal, dilated about 4 mm with minimal response to light. External ear without lesion or discharge. Straight, nares patient, mucosa pink, no discharge. No thyroid nodule appreciated. No cervical lymphadenopathy. Cardio: Normal Rate and Rhythm with S1 and S2 heart sounds. No murmurs or extra heart sounds auscultated. No bruits on carotid auscultation. No peripheral edema or cyanosis. Lungs: Symmetric with good expansion. Chest and back non-tender. Breath sounds vesicular with upper airway sounds Abdomen: Non-tender, Non-distended, Normal Reactive Bowel Sounds Neuro: YES Alert, YES cooperative, Yes oriented to person, NO place, and No time. Dysarthic. CN grossly intact. Upper motor strength 5/5 and Lower motor strength 5/5. Sensation intact. Reflexes normal Results: Labs 04/19/24 05:14 04/19/24 05:14 Labs: Short CBC 04/18/24 Range/Units 15:49 WBC 21.0 H (3.8-10.6) Thou/mm3 Hgb 17.0 H (13.5-16.0) g/dL Hct 47.8 (41.0-53.0) % Plt Count 247 (140-440) Thou/mm3 BMP 04/18/24 15:49 Sodium 140 Potassium 4.6 Chloride 105 Carbon Dioxide 19.3 L BUN 29 H Creatinine 4.0 H Glucose 139 H Calcium 9.4 Cardiac Enzymes 04/18/24 Range/Units 15:49 Troponin I < 0.020 (0.0-0.045) ng/mL Liver Function 04/18/24 Range/Units 15:49 Total Bilirubin 0.5 (0.3-1.2) mg/dL AST 40 H (0-34) U/L ALT 22 (10-49) U/L Alkaline Phosphatase 74 (46-116) U/L Albumin 5.1 H (3.5-5.0) gm/dL Urine 04/18/24 Range/Units 17:15 Urine Color Yellow (Lt Yel-Yel) Urine Clarity Turbid A (Clear/Hazy) Urine pH 5.5 (5.0-7.0) Ur Specific [place] 1.016 (1.001-1.035) Urine Protein 2+ A (Neg - Trace) Urine Glucose (UA) Trace (Negative) ABG Interpretation ABG results: 04/18/24 17:52 ABG pH 7.29 L ABG pCO2 37 ABG pO2 134 H ABG HCO3 18 L ABG O2 Saturation 100 H ABG Base Excess -8 L Quality Measures Quality Measures VTE prophylaxis (Heparin SC ) Medications Home Medications and Allergies Home Medications ?Medication ?Instructions ?Recorded ?Confirmed ?Type sertraline 100 mg tablet (Zoloft) 100 mg PO QDAY 07/02/18 07/27/19 History amlodipine 5 mg tablet (Norvasc) 5 mg PO BID High Blood Pressure 07/27/19 07/27/19 History Allergies Allergy/AdvReac Type Severity Reaction Status Date / Time Penicillins Allergy Severe DIFFICULTY Verified 06/17/21 08:44 BREATHING Visit Medications Dextrose (Dextrose 50%-Water Inj 50 Ml Syringe) 25 ml IV Q15MIN PRN PRN Reason: BG 50-70 responsive npo pt Stop: 05/18/24 18:23 Dextrose (Dextrose 50%-Water Inj 50 Ml Syringe) 50 ml IV Q15MIN PRN PRN Reason: BG <50 OR BG <70 & pt unresponsive Stop: 05/18/24 18:23 Glucagon (Glucagon Inj 1 Mg Vial) 1 mg IM Q15MIN PRN PRN Reason: BG <70, and no IV access Metronidazole (Flagyl 500 Mg Iv) 500 mg in 100 mls @ 200 mls/hr IV Q8HR GEOVANY Stop: 04/25/24 18:25 Cefepime HCl 1 gm/ Sodium (Chloride) 50 mls @ 100 mls/hr IV Q12HR GEOVANY Stop: 04/25/24 18:29 Sodium Chloride (Ns) 1,000 mls @ 125 mls/hr IV .Q8H GEOVANY Stop: 05/18/24 18:30 Cefepime HCl 1 gm/ Sodium (Chloride) 50 mls @ 100 mls/hr IV X1 ONE Stop: 04/18/24 19:14 Magnesium Sulfate (Magnesium Sulfate Ivpb) 2 gm in 50 mls @ 25 mls/hr IV X1 ONE Stop: 04/18/24 20:33 Vancomycin HCl 1,500 mg/ (Sodium Chloride) 500 mls @ 200 mls/hr IV X1 ONE Stop: 04/18/24 21:14 Lorazepam (Lorazepam 2 Mg/Ml Vial) 2 mg IVP Q10MIN PRN PRN Reason: SEIZURES Stop: 04/23/24 18:44 Pharmacy Consult (Pharmacy Renal Dose Adjustment 1 Ea) 1 each XX PRN PRN PRN Reason: CONSULT Stop: 05/18/24 18:22 Pharmacy Consult (Vancomycin Pharmacy To Dose 1 Each Each) 1 each IV QDAY GEOVANY Stop: 05/18/24 18:29 Scopolamine (Scopolamine 1 Mg Tdsy) 1 mg TOP Q3D PRN PRN Reason: nausea Stop: 05/18/24 18:29 Discontinued Medications Sodium Chloride (Ns) 1,000 mls @ 999 mls/hr IV .Q1H1M ONE Stop: 04/18/24 16:43 Last Infusion: 04/18/24 17:22 Dose: Infused Sodium Chloride (Ns) 1,000 mls @ 999 mls/hr IV .Q1H1M ONE Stop: 04/18/24 16:45 Last Infusion: 04/18/24 17:22 Dose: Infused Levofloxacin/Dextrose (Levaquin Ivpb) 750 mg in 150 mls @ 100 mls/hr IV X1 ONE Stop: 04/18/24 18:37 Sodium Chloride (Ns) 1,000 mls @ 80 mls/hr IV .[id number] [facility] Stop: 05/18/24 18:16 Ondansetron HCl (Ondansetron Inj 2 Mg/Ml Inj 2 Ml) 4 mg IV X1 ONE Stop: 04/18/24 15:35 Last Admin: 04/18/24 16:49 Dose: 4 mg Assessment & Plan Plan Patient is 39-year-old male with a past medical history of generalized anxiety disorder and history of suicide attempts with psychic medication who was admitted on 04/18/2024 for acute metabolic encephalopathy secondary to polypharmacy overdose, possible SI attempt. #Acute Metabolic Encephalopathy secondardy to psychic medication #Intentional Overdose #Possible SI Attempt #history of Seizures Patient has a history of suicidal attempts and recently lost his job, given QT of 491 overdose cannot be ruled out. Please add a one-to-one sitter. Patient consumed sertraline (entire bottle), gabapentin, trazodone, lorazepam. Please monitor for serotonin syndrome and benzos overdose. Please do not initiate lorazepam in an adult given possibility of seizures. DDx: Less likely secondary to head trauma as CT head was negative versus alcohol intoxication less likely as alcohol levels will Plan -Normal saline 125 cc/h -Lorazepam for breakthrough seizures only -Aspiration precautions, head of bed 30 degrees -Seizure precautions -Neurochecks every 4 hours -EKG checks every 6 hours -If QT prolongation greater than 500 give 1 and 2 g of IV magnesium -Salicylates pending -TSH, T4 pending -Creatinine kinase pending -Hypoglycemia precautions -Social work -N.p.o. -Neurology consulted, appreciate recommendations Dr. Toro -Poison control contacted #Aspiration Pneumonia #Leukocytosis Given patient was found unconscious, aspiration pneumonia likely as well as emesis noted by patient's father. Chest x-ray showing suspicion for early left pneumonia. Viral pneumonia cannot be ruled out. DDx: Less likely secondary to CHF exacerbation as there is no cardiac history and enlarged heart on Cx vs WI, less likely as there is no ST elevation Plan -Cefepime 1 gm Q 12 hours (renally dose) -Metronidazole 500 mg Q8 Hours (no renal dosing) -Sputum culture -MRSA screen -COVID and flu -Pharmacy to dose -Consider chest physio tomorrow and duonebs if wheezing is noted. #NATALIE Patient arrived with an NATALIE, creatinine kinase greater than 0.3 change based on previous baseline of creatinine 1. Current creatinine 4 and BUN of 29. Estimated creatinine clearance of 24.7. BUN/CR 7, thus intrinsic damage can not be ruled out. pending CK levels but UA showed only 1+ blood. Consider Pre-renal NATALIE vs post renal. Plan: NS 1 L @ 125 cc per hour Avoid Nephrotoxins Renally dose medation pharmacy to dose #Non anion gap, metabolic acidosis Minimal decrease decrease in carbon dioxide with an anion gap of 16, based on hospital standards is considered non-anion gap as it is not greater than 16. 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 DDx: Although anion gap this can make be considered normal, they can also be considered as a elevated anion gap thus salicylate intoxication cannot be ruled out versus versus alcohol intoxication less likely given no crystals noted on UA and alcohol within normal limits. Plan: Urine electrolytes and creatinine urine Salycilate levels Treat underlying condition, fluid resuscitation #Generalized Anxiety Disorder Hold all medication given intoxication. #History of Seizures Plan Ativan 2 mg every 10-15 min upto 4 times for breakthrough seizures. #Mild Elevated transaminitis Given elevated AST likely reactive. Continue to monitor DDx hepatitis versus HIV versus hypoperfusion of liver. Patient does have a history of alcohol use and mixes it with medication. Plan -Continue to monitor AST's and ALT's -Hepatitis panel and HIV panel. Health Maintenance: Disp: Pt is currently admitted to floors for further management of acute metabolic encephalopathy, awaiting EEG and EKG Q6 hrs for QT prolongation FEN: NPO GI: NONE, trying to avoid QT prolongation DVT: compression device Code: Full code - The patient's plan was discussed with attending Dr. Winn and senior residents Dr. Abdiel Gan MD PGY1 Internal Medicine Attending Provider Attestation/Addendum I attest that I was physically present for the evaluation, physical examination, lab and imaging review of the patient with the residents. I discussed the case with the residents and agree with the findings and plans of care as documented above. Patient is a 39 years old male with past medical history of depression, insomnia and possible epilepsy on multiple medications who presented to the ED with complaint of altered mental status.? Patient was found on his room by his father this afternoon at around 3.? As per patient's father, his bed is soiled with feces and urine, also had vomiting.? His last well known time was yesterday evening around 9.? The father found multiple empty bottles of medications in the room including sertraline, trazodone, gabapentin and lorazepam.? In the ED, he was tachycardic, hypotensive with blood pressure of 76/58.? Had leukocytosis, ABG showed acidosis with pH of 7.29.? Also had creatinine of 4.0.? Head CT was done which was unremarkable.? EKG showed sinus tachycardia with prolonged QTc at 491.? X-ray was done which showed early left perihilar pneumonia concerning for aspiration pneumonia.? At the time of examination, patient was awake but confused, unable to answer questions or follow commands.? Moving all his limbs spontaneously.? Saturating well on 2 L nasal cannula.? Received fluid bolus.? We will continue with IV hydration, frequent neurochecks, serial EKGs, creatinine kinase.? Poison control and neurology consulted, appreciate recommendations.? We will also start him on IV antibiotics for aspiration pneumonia Poncho Winn MD
[2024-04-18] MEDS: CEFEPIME INJ 1 GM in SODIUM CHLORIDE 0.9% (P) 50 ML IV (19:45)
[2024-04-18] MEDS: metroNIDAZOLE/NS 500 MG IVPB 500 MG/100 ML BAG 200 MG IV (19:45)
[2024-04-18] MEDS: Magnesium Sulfate 2 GM Ivpb 2 GM/50 ML BAG IV (19:57)
[2024-04-18] MEDS: SODIUM CHLORIDE 0.9% 1000 ML 1,000 ML 125 ML IV (19:59)
--- NOTE | 2024-04-18 20:09 | PC.NURSE ---
Called MD to request cancel of garvin order. Pt is confused but able to use urinal. Ok to cancel per MD.
[2024-04-18 20:14] LABS: Creatine Kinase 1119 U/L (34-171); Phosphorous 6.5 mg/dL (2.4-5.1)
[2024-04-18 20:28] LABS: HIV (1&2) Antibody Rapid Non-Reactive
[2024-04-18] MEDS: Vancomycin Inj 1,500 MG in SODIUM CHLORIDE 0.9% 500 ML 500 ML 200 MG IV (20:28)
[2024-04-18 20:50] LABS: Chloride,Urine Random < 20.0 mMol/L (55.0-125.0); Creatinine,Random Urine 90 mg/dL (30-125); Potassium,Urine Random 36 mMol/L (12-62); Sodium,Urine Random < 15.0 mMol/L (20.0-110.0)
[2024-04-18] MEDS: HEPARIN SOD INJ 5000 UNIT/ML VIAL SC (20:50)
--- NOTE | 2024-04-18 21:01 | PC.NURSE ---
Spoke with Tyler from poison control. Updated him on what medications pt has received, utox results, and current vitals. No further recommendations from poison control. Stated they will call back tomorrow.
--- NOTE | 2024-04-18 23:46 | PD.VCONSULT1 ---
Telemedicine visit statement This visit was conducted with the use of interactive audio and video telecommunications system that permits real time communication between the patient and the provider. Patient's verbal consent for virtual visit was obtained on 04/18/24 at 2346. Meds Home Medications and Allergies Home Medications ?Medication ?Instructions ?Recorded ?Confirmed ?Type sertraline 100 mg tablet (Zoloft) 100 mg PO QDAY 07/02/18 07/27/19 History amlodipine 5 mg tablet (Norvasc) 5 mg PO BID High Blood Pressure 07/27/19 07/27/19 History Allergies Allergy/AdvReac Type Severity Reaction Status Date / Time Penicillins Allergy Severe DIFFICULTY Verified 06/17/21 08:44 BREATHING Virtual exam Vital Signs Temp Pulse Resp BP Pulse Ox O2 Del Method O2 Flow Rate 98.0 F 100 20 103/68 100 Room Air 5 04/18/24 17:00 04/18/24 20:00 04/18/24 20:00 04/18/24 20:00 04/18/24 20:00 04/18/24 20:00 04/18/24 19:00 Results Labs 04/18/24 15:49 04/18/24 15:49 Labs: Short CBC 04/18/24 Range/Units 15:49 WBC 21.0 H (3.8-10.6) Thou/mm3 Hgb 17.0 H (13.5-16.0) g/dL Hct 47.8 (41.0-53.0) % Plt Count 247 (140-440) Thou/mm3 BMP 04/18/24 15:49 Sodium 140 Potassium 4.6 Chloride 105 Carbon Dioxide 19.3 L BUN 29 H Creatinine 4.0 H Glucose 139 H Calcium 9.4 Cardiac Enzymes 04/18/24 Range/Units 15:49 Total Creatine Kinase 1119 H (34-171) U/L Troponin I < 0.020 (0.0-0.045) ng/mL Liver Function 04/18/24 Range/Units 15:49 Total Bilirubin 0.5 (0.3-1.2) mg/dL AST 40 H (0-34) U/L ALT 22 (10-49) U/L Alkaline Phosphatase 74 (46-116) U/L Albumin 5.1 H (3.5-5.0) gm/dL Urine 04/18/24 Range/Units 17:15 Urine Color Yellow (Lt Yel-Yel) Urine Clarity Turbid A (Clear/Hazy) Urine pH 5.5 (5.0-7.0) Ur Specific [place] 1.016 (1.001-1.035) Urine Protein 2+ A (Neg - Trace) Urine Glucose (UA) Trace (Negative) ABG Interpretation ABG results: 04/18/24 17:52 ABG pH 7.29 L ABG pCO2 37 ABG pO2 134 H ABG HCO3 18 L ABG O2 Saturation 100 H ABG Base Excess -8 L
[2024-04-19] VITALS (9 sets, daily range): BP systolic 104–124; BP diastolic 69–81; PULSE 93–104; RESP 15–90; TEMP 36.4–36.8; O2SAT 91–97
--- NOTE | 2024-04-19 01:00 | EKG_ITS ---
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
[2024-04-19] MEDS: SODIUM CHLORIDE 0.9% 1000 ML 1,000 ML 125 ML IV (04:10)
[2024-04-19] MEDS: metroNIDAZOLE/NS 500 MG IVPB 500 MG/100 ML BAG 200 MG IV ×3 (05:10→21:05)
[2024-04-19 05:38] LABS: Basophils % (Auto) 0 % (0-2.5); Eosinophils % (Auto) 0 % (0-10); Hematocrit 38.4 % (41.0-53.0); Hemoglobin 13.8 g/dL (13.5-16.0); Immature Granulocytes % (Auto) 1 % (0-0); Immature Granulocytes Auto 0.13 Thou/mm3 (0.00-0.00); Lymphocytes # (Auto) 0.8 Thou/mm3 (1.0-4.8); Lymphocytes % (Auto) 5 % (10-50); Mean Corpuscular HGB Conc 35.9 g/dl (31.0-37.0); Mean Corpuscular Hemoglobin 29.9 pg (25.0-35.0); Mean Corpuscular Volume 83 fL (80-100); Monocytes # (Auto) 1.4 Thou/mm3 (0.0-0.8); Monocytes % (Auto) 8 % (0-12); Neutrophils # (Auto) 15.9 Thou/mm3 (1.8-7.7); Neutrophils % (Auto) 87 % (37-80); Nucleated Red Blood Cell % 0 /100 WBC (0); Platelet Count 210 Thou/mm3 (140-440); Red Blood Count 4.62 Miln/mm3 (4.50-5.90); White Blood Count 18.2 Thou/mm3 (3.8-10.6)
[2024-04-19 06:15] LABS: Glucose Estimated Average 85 mg/dL (80-131); Hemoglobin A1C 4.6 % Hgb (4.8-6.0)
[2024-04-19 06:19] LABS: Alanine Aminotransferase 27 U/L (10-49); Albumin/Globulin Ratio 1.7 (1.2-2.2); Alkaline Phosphatase 60 U/L (46-116); Anion Gap 12 (7-16); Aspartate Amino Transferase 42 U/L (0-34); BUN/Creatinine Ratio 14 Ratio (12-20); Bilirubin,Total 0.5 mg/dL (0.3-1.2); Blood Urea Nitrogen 23 mg/dL (9-23); Calcium 8.6 mg/dL (8.3-10.6); Calcium (Corrected) 8.6 mg/dL (8.5-10.1); Carbon Dioxide 18.2 mMol/L (20.0-31.0); Cardiac Risk Estimate 2.1 RATIO (4.0-6.7); Chloride 116 mMol/L (98-107); Cholesterol 74 mg/dL (132-200); Creatine Kinase 1188 U/L (34-171); Creatinine (Component) 1.7 mg/dL (0.6-1.3); Estimated Creatinine Clearance 58.4 mL/min (>60); Free T4 (Free Thyroxine) 1.12 ng/dL (0.89-1.76); Globulin 2.4 gm/dL (2.3-3.5); Glucose 94 mg/dL (74-106); HDL Cholesterol 36 mg/dL (40-60); LDL Cholesterol,Calculated 27 mg/dL (0-130); Magnesium 2.5 mg/dL (1.6-2.6); Osmolality,Calculated 294 (275-295); Phosphorous 1.5 mg/dL (2.4-5.1); Potassium 4.3 mMol/L (3.4-5.1); Sodium 146 mMol/L (136-145); Thyroid Stimulating Hormone 0.63 uIU/mL (0.55-4.78); Total Protein 6.4 gm/dL (5.7-8.2); Triglycerides 55 mg/dL (30-150); eGFR 52 See Note
--- NOTE | 2024-04-19 07:00 | EKG_ITS ---
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
[2024-04-19] MEDS: RINGERS LACTATED 1000 ML 1,000 ML 150 ML IV ×3 (08:04→23:54)
[2024-04-19] MEDS: HEPARIN SOD INJ 5000 UNIT/ML VIAL SC ×2 (08:04→20:14)
[2024-04-19] MEDS: CEFEPIME INJ 1 GM in SODIUM CHLORIDE 0.9% 50 ML IV ×2 (08:56→20:15)
[2024-04-19] MEDS: POTASSIUM PHOS 22.5 MMOL in SODIUM CHLORIDE 0.9% 500 ML 500 ML 82.778 MMOL IV (10:54)
--- NOTE | 2024-04-19 12:51 | RESP.EEG ---
EEG COMPLETED AND READY FOR REVIEW
--- NOTE | 2024-04-19 14:33 | PD.RESPRO ---
Documentation for date of: 04/19/24 Subjective Subjective Interval history: Patient seen and examined. Patient's mentation has not improved. AOx1. EEG was going to be performed. No events overnight. Exam Vital Signs Temp Pulse Resp BP Pulse Ox O2 Del Method O2 Flow Rate 98.3 F 99 20 115/78 96 Nasal Cannula 2 04/19/24 12:00 04/19/24 12:00 04/19/24 12:00 04/19/24 12:00 04/19/24 12:00 04/19/24 12:00 04/19/24 07:22 Narrative Exam General Appearance: Alert & Oriented X1, well-nourished male who is lying in bed appearing altered HEENT: Skull symmetrical and atraumatic. Conjunctivae pink and moist. Pupils equal, dilated about 4 mm with minimal response to light. External ear without lesion or discharge. Straight, nares patient, mucosa pink, no discharge. No thyroid nodule appreciated. No cervical lymphadenopathy. Cardio: Normal Rate and Rhythm with S1 and S2 heart sounds. No murmurs or extra heart sounds auscultated. No bruits on carotid auscultation. No peripheral edema or cyanosis. Lungs: Symmetric with good expansion. Chest and back non-tender. Breath sounds vesicular with upper airway sounds Abdomen: Non-tender, Non-distended, Normal Reactive Bowel Sounds Neuro: YES Alert, YES cooperative, Yes oriented to person, NO place, and No time. Dysarthic. CN grossly intact. Upper motor strength 5/5 and Lower motor strength 5/5. Sensation intact. Reflexes normal Objective Labs 04/20/24 05:30 04/19/24 05:14 Labs: Laboratory Results - last 24 hr 04/18/24 04/18/24 04/18/24 14:49 15:49 17:15 WBC 21.0 H RBC 5.74 Hgb 17.0 H Hct 47.8 MCV 83 MCH 29.6 MCHC 35.6 RDW Std Deviation 38.5 Plt Count 247 Neut % (Auto) 90 H Lymph % (Auto) 2 L [place] % (Auto) 6 Eos % (Auto) 0 Baso % (Auto) 0 Neut # (Auto) 19.0 H Lymph # (Auto) 0.4 L [place] # (Auto) 1.3 H Eos # (Auto) 0.0 Baso # (Auto) 0.0 Immature Gran # (Auto) 0.27 H Absolute Nucleated RBC 0.00 Immature Gran % 1 H Nucleated RBC % 0 Puncture Site ABG pH ABG pCO2 ABG pO2 ABG HCO3 ABG O2 Saturation ABG Base Excess FiO2 Sodium 140 Potassium 4.6 Chloride 105 Carbon Dioxide 19.3 L Anion Gap 16 BUN 29 H Creatinine 4.0 H Estim Creat Clear Calc 24.7 L eGFR 19 L BUN/Creatinine Ratio 7 L Glucose [address] Glu mg/dL Hemoglobin A1c Calculated Osmolality 287 Lactic Acid Calcium 9.4 Corrected Calcium 9.4 Phosphorus 6.5 H Magnesium 1.9 Total Bilirubin 0.5 AST 40 H ALT 22 Alkaline Phosphatase 74 Ammonia 21 Total Creatine Kinase 1119 H Troponin I < 0.020 Total Protein 8.0 Albumin 5.1 H Globulin 2.9 Albumin/Globulin Ratio 1.8 Triglycerides Cholesterol LDL Cholesterol, Calc HDL Cholesterol Cholesterol/HDL Ratio Lipase 43 Procalcitonin TSH Free T4 Ur Collection Type Clean Catch Urine Color Yellow Urine Clarity Turbid A Urine pH 5.5 Ur Specific [place] 1.016 Urine Protein 2+ A Urine Glucose (UA) Trace Urine Ketones Negative Urine Blood 1+ A Urine Nitrite Negative Urine Bilirubin Negative Urine Urobilinogen (Auto) Negative Ur Leukocyte Esterase Negative Urine RBC 2 Urine WBC 8 H Ur Squamous Epith Cells 2 Urine Bacteria None Hyaline Casts < 1 Ur Culture Indicated? Not Indicated Ur Random Creatinine 90 Ur Random Sodium < 15.0 L Ur Random Potassium 36 Ur Random Chloride < 20.0 L Salicylates Urine Opiates Screen Negative Urine Fentanyl Screen Negative Ur Barbiturates Screen Negative U Amphetamin/Meth Scrn Negative U Benzodiazepines Scrn Positive A U Cocaine Metab Screen Negative U Marijuana (THC) Screen Negative Ethyl Alcohol < 3.0 HIV 1&2 Antibody Rapid Non-Reactive 04/18/24 04/18/24 04/19/24 17:27 17:52 05:14 WBC 18.2 H RBC 4.62 Hgb 13.8 D Hct 38.4 L MCV 83 MCH 29.9 MCHC 35.9 RDW Std Deviation 39.0 Plt Count 210 D Neut % (Auto) 87 H Lymph % (Auto) 5 L [place] % (Auto) 8 Eos % (Auto) 0 Baso % (Auto) 0 Neut # (Auto) 15.9 H Lymph # (Auto) 0.8 L [place] # (Auto) 1.4 H Eos # (Auto) 0.0 Baso # (Auto) 0.0 Immature Gran # (Auto) 0.13 H Absolute Nucleated RBC 0.00 Immature Gran % 1 H Nucleated RBC % 0 Puncture Site Left Radial ABG pH 7.29 L ABG pCO2 37 ABG pO2 134 H ABG HCO3 18 L ABG O2 Saturation 100 H ABG Base Excess -8 L FiO2 21 Sodium 146 H Potassium 4.3 Chloride 116 H Carbon Dioxide 18.2 L Anion Gap 12 BUN 23 Creatinine 1.7 H D Estim Creat Clear Calc 58.4 L eGFR 52 L BUN/Creatinine Ratio [address] Glu mg/dL 85 Hemoglobin A1c 4.6 L Calculated Osmolality 294 Lactic Acid 1.8 Calcium 8.6 Corrected Calcium 8.6 Phosphorus 1.5 L Magnesium 2.5 Total Bilirubin 0.5 AST 42 H ALT 27 Alkaline Phosphatase 60 Ammonia Total Creatine Kinase 1188 H D Troponin I Total Protein 6.4 Albumin 4.0 D Globulin 2.4 Albumin/Globulin Ratio 1.7 Triglycerides 55 Cholesterol 74 L LDL Cholesterol, Calc 27 HDL Cholesterol 36 L Cholesterol/HDL Ratio 2.1 L Lipase Procalcitonin 5.74 H TSH 0.63 Free T4 1.12 Ur Collection Type Urine Color Urine Clarity Urine pH Ur Specific [place] Urine Protein Urine Glucose (UA) Urine Ketones Urine Blood Urine Nitrite Urine Bilirubin Urine Urobilinogen (Auto) Ur Leukocyte Esterase Urine RBC Urine WBC Ur Squamous Epith Cells Urine Bacteria Hyaline Casts Ur Culture Indicated? Ur Random Creatinine Ur Random Sodium Ur Random Potassium Ur Random Chloride Salicylates < 3.0 Urine Opiates Screen Urine Fentanyl Screen Ur Barbiturates Screen U Amphetamin/Meth Scrn U Benzodiazepines Scrn U Cocaine Metab Screen U Marijuana (THC) Screen Ethyl Alcohol HIV 1&2 Antibody Rapid ABG Interpretation ABG results: 04/18/24 17:52 ABG pH 7.29 L ABG pCO2 37 ABG pO2 134 H ABG HCO3 18 L ABG O2 Saturation 100 H ABG Base Excess -8 L Quality Measures Quality Measures VTE prophylaxis (Heparin SC ) Assessment & Plan Assessment Current Active Medications: Generic Name Dose Route Start Last Admin Trade Name Freq PRN Reason Stop Dose Admin Dextrose 25 ml 04/18/24 18:24 Dextrose 50%-Water Inj 50 Ml Syringe IV 05/18/24 18:23 Q15MIN PRN BG 50-70 responsive npo pt Dextrose 50 ml 04/18/24 18:24 Dextrose 50%-Water Inj 50 Ml Syringe IV 05/18/24 18:23 Q15MIN PRN BG <50 OR BG <70 & pt unresponsive Glucagon 1 mg 04/18/24 18:24 Glucagon Inj 1 Mg Vial IM Q15MIN PRN BG <70, and no IV access Heparin Sodium (Porcine) 5,000 unit 04/18/24 21:00 04/19/24 08:04 Heparin Sod Inj 5000 Unit/Ml Vial SC 05/02/24 20:59 5,000 unit BID GEOVANY Administration Metronidazole 500 mg in 100 mls @ 200 mls/hr 04/18/24 18:26 04/19/24 14:22 Flagyl 500 Mg Iv IV 04/25/24 18:25 200 mls/hr Q8HR GEOVANY Administration Cefepime HCl 1 gm/ Sodium 50 mls @ 100 mls/hr 04/19/24 09:00 04/19/24 08:56 Chloride IV 04/26/24 08:59 100 mls/hr Q12HR GEOVANY Administration Lactated Ringer's 1,000 mls @ 150 mls/hr 04/19/24 07:42 04/19/24 08:04 Lactated Ringers IV 05/19/24 07:41 150 mls/hr .Q6H40M GEOVANY Administration Potassium Phosphate 22.5 mmol/ 507.5 mls @ 82.778 mls/hr 04/19/24 10:24 04/19/24 10:54 Sodium Chloride IV 04/19/24 16:31 82.778 mls/hr X1 ONE Administration Lorazepam 2 mg 04/18/24 19:28 Lorazepam 2 Mg/Ml Vial IVP 04/23/24 18:44 Q30MIN PRN Breakthrough Seizures Pharmacy Consult 1 each 04/18/24 18:23 Pharmacy Renal Dose Adjustment 1 Ea XX 05/18/24 18:22 PRN PRN CONSULT Scopolamine 1 mg 04/18/24 18:23 Scopolamine 1 Mg Tdsy TOP 05/18/24 18:29 Q3D PRN nausea Plan Patient is 39-year-old male with a past medical history of generalized anxiety disorder and history of suicide attempts with psychic medication who was admitted on 04/18/2024 for acute metabolic encephalopathy secondary to polypharmacy overdose, possible SI attempt. #Acute Metabolic Encephalopathy secondardy to psychic medication #Intentional Overdose #Possible SI Attempt #history of Seizures Patient has a history of suicidal attempts and recently lost his job, given QT of 491 overdose cannot be ruled out. Please add a one-to-one sitter. Patient consumed sertraline (entire bottle), gabapentin, trazodone, lorazepam. Please monitor for serotonin syndrome and benzos overdose. Please do not initiate lorazepam in an adult given possibility of seizures. DDx: Less likely secondary to head trauma as CT head was negative versus alcohol intoxication less likely as alcohol levels will Plan -IVF 150 cc/h -Lorazepam for breakthrough seizures only -Seizure precautions -Neurochecks every 4 hours -EKG checks every 6 hours -N.p.o. -Neurology consulted, appreciate recommendations Dr. Toro -Poison control contacted #Rhabdomyolysis likely 2/2 possible seizure activity vs time down on the floor CK elevated >1000 Plan: -IVF 150ml/hr #Aspiration Pneumonia #Leukocytosis Given patient was found unconscious, aspiration pneumonia likely as well as emesis noted by patient's father. Chest x-ray showing suspicion for early left pneumonia. Viral pneumonia cannot be ruled out. DDx: Less likely secondary to CHF exacerbation as there is no cardiac history and enlarged heart on Cx vs [place], less likely as there is no ST elevation Plan -Cefepime 1 gm Q 12 hours (renally dose) -Metronidazole 500 mg Q8 Hours (no renal dosing) -Sputum culture -MRSA screen -COVID and flu -Pharmacy to dose -Consider chest physio tomorrow and duonebs if wheezing is noted. #NATALIE Patient arrived with an NATALIE, creatinine kinase greater than 0.3 change based on previous baseline of creatinine 1. Current creatinine 4 and BUN of 29. Estimated creatinine clearance of 24.7. BUN/CR 7, thus intrinsic damage can not be ruled out. pending CK levels but UA showed only 1+ blood. Consider Pre-renal NATALIE vs post renal. Plan: NS 1 L @ 125 cc per hour Avoid Nephrotoxins Renally dose medation pharmacy to dose #Non anion gap, metabolic acidosis Minimal decrease decrease in carbon dioxide with an anion gap of 16, based on hospital standards is considered non-anion gap as it is not greater than 16. 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 DDx: Although anion gap this can make be considered normal, they can also be considered as a elevated anion gap thus salicylate intoxication cannot be ruled out versus versus alcohol intoxication less likely given no crystals noted on UA and alcohol within normal limits. Plan: Urine electrolytes and creatinine urine Salycilate levels Treat underlying condition, fluid resuscitation #Generalized Anxiety Disorder Hold all medication given intoxication. #History of Seizures Plan Ativan 2 mg every 10-15 min upto 4 times for breakthrough seizures. #Mild Elevated transaminitis Given elevated AST likely reactive. Continue to monitor DDx hepatitis versus HIV versus hypoperfusion of liver. Patient does have a history of alcohol use and mixes it with medication. Plan -Continue to monitor AST's and ALT's -Hepatitis panel and HIV panel. Health Maintenance: Disp: Pt is currently admitted to floors for further management of acute metabolic encephalopathy, awaiting EEG and EKG Q6 hrs for QT prolongation FEN: NPO GI: NONE, trying to avoid QT prolongation DVT: compression device Code: Full code - Patient's care was discussed with my attending physician, Dr. Tatum Ross MD Internal Medicine PGY-3 Attending Provider Attestation/Addendum I attest that I was physically present for the evaluation, physical examination, lab and imaging review of the patient with the residents. I discussed the case with the residents and agree with the findings and plans of care as documented above. At bedside, patient continues to be awake but confused and unable to answer questions or follow commands. Repeat EKG showed improved QTc. Has CK more than thousand, we will continue with IV hydration. Renal function improving. Noted to have anion gap of 16 with low bicarbonate. Ativan IV as needed for seizures. Patient getting EEG today. Neurology following. Poncho Winn MD
[2024-04-19 16:52] LABS: Influenza A Ag Negative; Influenza B Ag Negative
[2024-04-20] VITALS (8 sets, daily range): BP systolic 107–120; BP diastolic 73–84; PULSE 90–103; RESP 19–98; TEMP 36.3–37; O2SAT 94–98
--- NOTE | 2024-04-20 01:00 | EKG_ITS ---
[facility] Test Date: 2024-04-20 Pat Name: ARMANDO CISNEROS Department: Room: [facility] Gender: Male Prior Authorization Technician: MARY : [id number] Requested By: Sejal Gan Order Number: [id number] Reading MD: Sejal Gan Measurements Intervals [place] Rate: 96 P: 55 ND: 169 QRS: 15 QRSD: 82 T: 68 QT: 264 QTc: 335 Interpretive Statements SINUS RHYTHM SEPTAL MYOCARDIAL INFARCTION , PROBABLY OLD Compared to ECG 04/19/2024 18:34:29 No significant changes /store/S0/[id number].pdf
[2024-04-20] MEDS: metroNIDAZOLE/NS 500 MG IVPB 500 MG/100 ML BAG 200 MG IV ×3 (05:19→21:49)
[2024-04-20 06:27] LABS: Basophils % (Auto) 0 % (0-2.5); Eosinophils % (Auto) 0 % (0-10); Hematocrit 34.5 % (41.0-53.0); Hemoglobin 12.4 g/dL (13.5-16.0); Immature Granulocytes % (Auto) 1 % (0-0); Lymphocytes # (Auto) 0.8 Thou/mm3 (1.0-4.8); Lymphocytes % (Auto) 6 % (10-50); Mean Corpuscular HGB Conc 35.9 g/dl (31.0-37.0); Mean Corpuscular Volume 83 fL (80-100); Monocytes # (Auto) 0.7 Thou/mm3 (0.0-0.8); Monocytes % (Auto) 5 % (0-12); Neutrophils # (Auto) 11.9 Thou/mm3 (1.8-7.7); Neutrophils % (Auto) 87 % (37-80); Nucleated Red Blood Cell % 0 /100 WBC (0); Platelet Count 175 Thou/mm3 (140-440); RDW Standard Deviation 41.5 fL (35.1-43.9); Red Blood Count 4.14 Miln/mm3 (4.50-5.90); White Blood Count 13.6 Thou/mm3 (3.8-10.6)
[2024-04-20] MEDS: RINGERS LACTATED 1000 ML 1,000 ML 150 ML IV ×3 (06:45→21:49)
[2024-04-20 06:48] LABS: Magnesium 1.9 mg/dL (1.6-2.6); Phosphorous 1.9 mg/dL (2.4-5.1)
[2024-04-20] MEDS: Magnesium Sulfate 2 GM Ivpb 2 GM/50 ML BAG IV (08:26)
[2024-04-20] MEDS: CEFEPIME INJ 1 GM in SODIUM CHLORIDE 0.9% 50 ML IV (08:27)
[2024-04-20] MEDS: HEPARIN SOD INJ 5000 UNIT/ML VIAL SC ×2 (08:27→21:49)
[2024-04-20 08:57] LABS: Alanine Aminotransferase 33 U/L (10-49); Albumin, Serum 3.8 gm/dL (3.5-5.0); Albumin/Globulin Ratio 1.6 (1.2-2.2); Alkaline Phosphatase 60 U/L (46-116); Anion Gap 15 (7-16); Aspartate Amino Transferase 72 U/L (0-34); BUN/Creatinine Ratio 12 Ratio (12-20); Bilirubin,Total 0.6 mg/dL (0.3-1.2); Blood Urea Nitrogen 13 mg/dL (9-23); Calcium (Corrected) 9.2 mg/dL (8.5-10.1); Carbon Dioxide 19.5 mMol/L (20.0-31.0); Chloride 113 mMol/L (98-107); Creatinine (Component) 1.1 mg/dL (0.6-1.3); Estimated Creatinine Clearance 90.3 mL/min (>60); Globulin 2.4 gm/dL (2.3-3.5); Glucose 74 mg/dL (74-106); Osmolality,Calculated 291 (275-295); Sodium 147 mMol/L (136-145); Total Protein 6.2 gm/dL (5.7-8.2); eGFR > 60 See Note
[2024-04-20 09:18] LABS: Creatine Kinase 1012 U/L (34-171)
[2024-04-20] MEDS: NAPH,KPH MBDB 1 PACKET (1.5 GM) PO ×2 (09:19→10:44)
--- NOTE | 2024-04-20 12:49 | PD.RESPRO ---
Documentation for date of: 04/20/24 Subjective Subjective Interval history: Patient is a 39-year-old male with a past medical history of generalized anxiety disorder who was admitted for overdose. No overnight events reported for patient. Patient examined at bedside. Patient continues to be alert but oriented only to self. Patient denied any headaches or double vision. Reflexes within normal range. Patient continues to denied suicidal attempts. Following up with neurology's recommendations and pending EEG. Cefepime switched over to ceftriaxone and continued Flagyl for aspiration pneumonia. Speech evaluation completed changed to mechanical dysphagia diet 1. WBC continues to downtrend at 13.6. Blood cultures negative after 24 hours. MRSA screen pending still. Family at bedside and explained treatment plan. Referral to social service agency director. Exam Vital Signs Temp Pulse Resp BP Pulse Ox O2 Del Method O2 Flow Rate 98.6 F 103 H 27 H 120/84 96 Nasal Cannula 3 04/20/24 08:00 04/20/24 09:07 04/20/24 09:07 04/20/24 08:00 04/20/24 09:07 04/20/24 08:00 04/20/24 09:07 Narrative Exam General Appearance: Alert & Oriented X1, well-nourished male who is lying in bed appearing altered HEENT: Skull symmetrical and atraumatic. Conjunctivae pink and moist. . External ear without lesion or discharge. PERRLA. Straight, nares patient, mucosa pink, no discharge. No thyroid nodule appreciated. No cervical lymphadenopathy. Cardio: Normal Rate and Rhythm with S1 and S2 heart sounds. No murmurs or extra heart sounds auscultated. No bruits on carotid auscultation. No peripheral edema or cyanosis. Lungs: Symmetric with good expansion. Chest and back non-tender. Breath sounds vesicular with upper airway sounds Abdomen: Non-tender, Non-distended, Normal Reactive Bowel Sounds Neuro: YES Alert, YES cooperative, Yes oriented to person, NO place, and No time. Dysarthic. CN grossly intact. Upper motor strength 5/5 and Lower motor strength 5/5. Sensation intact. Reflexes normal Objective Labs 04/20/24 05:30 04/20/24 13:00 Labs: Laboratory Results - last 24 hr 04/19/24 04/20/24 16:20 05:30 WBC 13.6 H RBC 4.14 L Hgb 12.4 L Hct 34.5 L MCV 83 MCH 30.0 MCHC 35.9 RDW Std Deviation 41.5 Plt Count 175 D Neut % (Auto) 87 H Lymph % (Auto) 6 L [place] % (Auto) 5 Eos % (Auto) 0 Baso % (Auto) 0 Neut # (Auto) 11.9 H Lymph # (Auto) 0.8 L [place] # (Auto) 0.7 Eos # (Auto) 0.0 Baso # (Auto) 0.0 Immature Gran # (Auto) 0.10 H Absolute Nucleated RBC 0.00 Immature Gran % 1 H Nucleated RBC % 0 Sodium 147 H Potassium 4.0 Chloride 113 H Carbon Dioxide 19.5 L Anion Gap 15 BUN 13 Creatinine 1.1 D Estim Creat Clear Calc 90.3 eGFR > 60 BUN/Creatinine Ratio 12 Glucose 74 Calculated Osmolality 291 Calcium 9.0 Corrected Calcium 9.2 Phosphorus 1.9 L Magnesium 1.9 Total Bilirubin 0.6 AST 72 H ALT 33 Alkaline Phosphatase 60 Total Creatine Kinase 1012 H D Total Protein 6.2 Albumin 3.8 Globulin 2.4 Albumin/Globulin Ratio 1.6 Influenza A (Rapid) Negative Influenza B (Rapid) Negative ABG Interpretation ABG results: 04/18/24 17:52 ABG pH 7.29 L ABG pCO2 37 ABG pO2 134 H ABG HCO3 18 L ABG O2 Saturation 100 H ABG Base Excess -8 L Quality Measures Quality Measures VTE prophylaxis (Heparin SC ) Assessment & Plan Assessment Current Active Medications: Generic Name Dose Route Start Last Admin Trade Name Freq PRN Reason Stop Dose Admin Dextrose 25 ml 04/18/24 18:24 Dextrose 50%-Water Inj 50 Ml Syringe IV 05/18/24 18:23 Q15MIN PRN BG 50-70 responsive npo pt Dextrose 50 ml 04/18/24 18:24 Dextrose 50%-Water Inj 50 Ml Syringe IV 05/18/24 18:23 Q15MIN PRN BG <50 OR BG <70 & pt unresponsive Glucagon 1 mg 04/18/24 18:24 Glucagon Inj 1 Mg Vial IM Q15MIN PRN BG <70, and no IV access Heparin Sodium (Porcine) 5,000 unit 04/18/24 21:00 04/20/24 08:27 Heparin Sod Inj 5000 Unit/Ml Vial SC 05/02/24 20:59 5,000 unit BID GEOVANY Administration Metronidazole 500 mg in 100 mls @ 200 mls/hr 04/18/24 18:26 04/20/24 05:19 Flagyl 500 Mg Iv IV 04/25/24 18:25 200 mls/hr Q8HR GEOVANY Administration Lactated Ringer's 1,000 mls @ 150 mls/hr 04/19/24 07:42 04/20/24 06:45 Lactated Ringers IV 05/19/24 07:41 150 mls/hr .Q6H40M GEOVANY Administration Ceftriaxone Sodium/Dextrose 50 mls @ 100 mls/hr 04/21/24 09:00 Rocephin/D5w 1gm Iv Premix IV 04/28/24 08:59 QDAY GEOVANY Lorazepam 2 mg 04/18/24 19:28 Lorazepam 2 Mg/Ml Vial IVP 04/23/24 18:44 Q30MIN PRN Breakthrough Seizures Pharmacy Consult 1 each 04/18/24 18:23 Pharmacy Renal Dose Adjustment 1 Ea XX 05/18/24 18:22 PRN PRN CONSULT Polyethylene Glycol 17 gm 04/21/24 09:00 Polyethylene Glycol 17 Gm Packet PO 05/21/24 08:59 QDAY GEOVANY Scopolamine 1 mg 04/18/24 18:23 Scopolamine 1 Mg Tdsy TOP 05/18/24 18:29 Q3D PRN nausea Sennosides 1 tab 04/20/24 10:25 Senna Tablet PO 05/20/24 10:24 QDAY PRN CONSTIPATION Protocol Plan Patient is 39-year-old male with a past medical history of generalized anxiety disorder and history of suicide attempts with psychic medication who was admitted on 04/18/2024 for acute metabolic encephalopathy secondary to polypharmacy overdose, possible SI attempt. #Acute Metabolic Encephalopathy secondardy to psychic medication #Intentional Overdose #Possible SI Attempt #history of Seizures Patient has a history of suicidal attempts and recently lost his job, given QT of 491 overdose cannot be ruled out. Please add a one-to-one sitter. Patient consumed sertraline (entire bottle), gabapentin, trazodone, lorazepam. Please monitor for serotonin syndrome and benzos overdose. Please do not initiate lorazepam in an adult given possibility of seizures. DDx: Less likely secondary to head trauma as CT head was negative versus alcohol intoxication less likely as alcohol levels will Plan -IVF 150 cc/h -Pending EEG -Lorazepam for breakthrough seizures only, use w/ caution -Seizure precautions -Neurochecks every 4 hours -Neurology consulted, appreciate recommendations Dr. Toro -Poison control contacted #Rhabdomyolysis likely 2/2 possible seizure activity vs time down on the floor CK elevated >1000 Plan: -IVF 150ml/hr #Aspiration Pneumonia #Leukocytosis Given patient was found unconscious, aspiration pneumonia likely as well as emesis noted by patient's father. Chest x-ray showing suspicion for early left pneumonia. Viral pneumonia cannot be ruled out. DDx: Less likely secondary to CHF exacerbation as there is no cardiac history and enlarged heart on Cx vs [place], less likely as there is no ST elevation COVID and flu Negative Plan -Ceftriaxone 1 gm Qday 04/21/2024 -Metronidazole 500 mg Q8 Hours (no renal dosing) -Cefepime 1 gm Q 12 hours (renally dose) stopped on 04/18/2024-04/20/2024 -Sputum culture-not collected -Blood-pending -MRSA screen - -Pharmacy to dose -Consider chest physio tomorrow and duonebs if wheezing is noted. #NATALIE, improving Patient arrived with an NATALIE, creatinine kinase greater than 0.3 change based on previous baseline of creatinine 1. Current creatinine 4 and BUN of 29. Estimated creatinine clearance of 24.7. BUN/CR 7, thus intrinsic damage can not be ruled out. pending CK levels but UA showed only 1+ blood. Consider Pre-renal NATALIE vs post renal. Improved Cr on 04/20/2024 w Cr 1.1. Plan: LR 150 cc Avoid Nephrotoxins Renally dose medation pharmacy to dose #Non anion gap, metabolic acidosis Minimal decrease decrease in carbon dioxide with an anion gap of 16, based on hospital standards is considered non-anion gap as it is not greater than 16. 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 DDx: Although anion gap this can make be considered normal, they can also be considered as a elevated anion gap thus salicylate intoxication cannot be ruled out versus versus alcohol intoxication less likely given no crystals noted on UA and alcohol within normal limits. Plan: Urine electrolytes and creatinine urine Salycilate levels Treat underlying condition, fluid resuscitation #Generalized Anxiety Disorder Hold all medication given intoxication. #History of Seizures Plan Ativan 2 mg every 10-15 min upto 4 times for breakthrough seizures. #Mild Elevated transaminitis Given elevated AST likely reactive. Continue to monitor DDx hepatitis versus HIV versus hypoperfusion of liver. Patient does have a history of alcohol use and mixes it with medication. Plan -Continue to monitor AST's and ALT's -Hepatitis panel- Pending -HIVE Negative Health Maintenance: Disp: Pt is currently admitted to floors for further management of acute metabolic encephalopathy, awaiting EEG FEN: Dysphagia 1 diet GI: NONE, trying to avoid QT prolongation DVT: compression device Code: Full code - The patient's plan was discussed with attending Dr. Charmaine Gan MD PGY1 Internal Medicine Attending Provider Attestation/Addendum I attest that I was physically present for the evaluation, physical examination, lab and imaging review of the patient with the residents. I discussed the case with the residents and agree with the findings and plans of care as documented above. At bedside today, patient appears more alert compared to yesterday. Was able to answer simple questions but continues to be confused. Creatinine kinase level noted to be downtrending. NATALIE has been improving. We will continue with IV hydration. Patient underwent EEG yesterday, pending read. Patient had speech therapy evaluation, passed swallow evaluation and started on diet. Sodium level noted to be increased slightly, we will have a follow-up sodium in the afternoon. Hemoglobin also noted to be slightly decreasing, possibly from dilution, we will follow-up with CBC tomorrow. Repleted phosphate and switch his antibiotics to Rocephin and Flagyl. Poncho Winn MD
[2024-04-20 13:22] LABS: Sodium 144 mMol/L (136-145)
[2024-04-20 22:35] LABS: Vancomycin,Trough < 3.0 mcg/mL (5.0-10.0)
--- NOTE | 2024-04-20 23:36 | PD.VPROG1 ---
Telemedicine visit statement This visit was conducted with the use of interactive audio and video telecommunications system that permits real time communication between the patient and the provider. Patient's verbal consent for virtual visit was obtained on 04/20/24 at 2336. Documentation for date of: 04/20/24 Subjective Subjective Interval history: Patient was in telemetry today, mental status is improving but still not back to baseline, still confused and not making sense. No sz reported from admission Virtual exam Vital Signs Temp Pulse Resp BP Pulse Ox O2 Del Method O2 Flow Rate 97.9 F 97 36 H 107/73 94 L Room Air 3 04/20/24 20:00 04/20/24 20:00 04/20/24 20:00 04/20/24 20:00 04/20/24 20:00 04/20/24 20:00 04/20/24 16:00 Objective Labs 04/20/24 05:30 04/20/24 13:00 Labs: Laboratory Results - last 24 hr 04/20/24 04/20/24 04/20/24 05:30 13:00 21:19 WBC 13.6 H RBC 4.14 L Hgb 12.4 L Hct 34.5 L MCV 83 MCH 30.0 MCHC 35.9 RDW Std Deviation 41.5 Plt Count 175 D Neut % (Auto) 87 H Lymph % (Auto) 6 L [place] % (Auto) 5 Eos % (Auto) 0 Baso % (Auto) 0 Neut # (Auto) 11.9 H Lymph # (Auto) 0.8 L [place] # (Auto) 0.7 Eos # (Auto) 0.0 Baso # (Auto) 0.0 Immature Gran # (Auto) 0.10 H Absolute Nucleated RBC 0.00 Immature Gran % 1 H Nucleated RBC % 0 Sodium 147 H 144 Potassium 4.0 Chloride 113 H Carbon Dioxide 19.5 L Anion Gap 15 BUN 13 Creatinine 1.1 D Estim Creat Clear Calc 90.3 eGFR > 60 BUN/Creatinine Ratio 12 Glucose 74 Calculated Osmolality 291 Calcium 9.0 Corrected Calcium 9.2 Phosphorus 1.9 L Magnesium 1.9 Total Bilirubin 0.6 AST 72 H ALT 33 Alkaline Phosphatase 60 Total Creatine Kinase 1012 H D Total Protein 6.2 Albumin 3.8 Globulin 2.4 Albumin/Globulin Ratio 1.6 Vancomycin Trough < 3.0 L ABG Interpretation ABG results: 04/18/24 17:52 ABG pH 7.29 L ABG pCO2 37 ABG pO2 134 H ABG HCO3 18 L ABG O2 Saturation 100 H ABG Base Excess -8 L Assessment & Plan Problem List (1) Altered mental status: Status: Acute Assessment and plan: improving, no sz reported after admission FU with EEG (2) Suicide attempt: Status: Acute Assessment and plan: reportedly hx of suicidal attempts Sitter at the bedside. (3) Pneumonia: Status: Acute Assessment and plan: from aspiration, on antibiotics.
--- NOTE | 2024-04-20 23:37 | PD.VPROG1 ---
Telemedicine visit statement This visit was conducted with the use of interactive audio and video telecommunications system that permits real time communication between the patient and the provider. Patient's verbal consent for virtual visit was obtained on 04/19/24. Documentation for date of: 04/19/24 Subjective Subjective Interval history: Patient was in telemetry today, mental status is improving but still not back to baseline, still confused and not making sense. No sz reported from admission Virtual exam Vital Signs Temp Pulse Resp BP Pulse Ox O2 Del Method O2 Flow Rate 97.9 F 97 36 H 107/73 94 L Room Air 3 04/20/24 20:00 04/20/24 20:00 04/20/24 20:00 04/20/24 20:00 04/20/24 20:00 04/20/24 20:00 04/20/24 16:00 Objective Labs 04/20/24 05:30 04/20/24 13:00 Labs: Laboratory Results - last 24 hr 04/20/24 04/20/24 04/20/24 05:30 13:00 21:19 WBC 13.6 H RBC 4.14 L Hgb 12.4 L Hct 34.5 L MCV 83 MCH 30.0 MCHC 35.9 RDW Std Deviation 41.5 Plt Count 175 D Neut % (Auto) 87 H Lymph % (Auto) 6 L [place] % (Auto) 5 Eos % (Auto) 0 Baso % (Auto) 0 Neut # (Auto) 11.9 H Lymph # (Auto) 0.8 L [place] # (Auto) 0.7 Eos # (Auto) 0.0 Baso # (Auto) 0.0 Immature Gran # (Auto) 0.10 H Absolute Nucleated RBC 0.00 Immature Gran % 1 H Nucleated RBC % 0 Sodium 147 H 144 Potassium 4.0 Chloride 113 H Carbon Dioxide 19.5 L Anion Gap 15 BUN 13 Creatinine 1.1 D Estim Creat Clear Calc 90.3 eGFR > 60 BUN/Creatinine Ratio 12 Glucose 74 Calculated Osmolality 291 Calcium 9.0 Corrected Calcium 9.2 Phosphorus 1.9 L Magnesium 1.9 Total Bilirubin 0.6 AST 72 H ALT 33 Alkaline Phosphatase 60 Total Creatine Kinase 1012 H D Total Protein 6.2 Albumin 3.8 Globulin 2.4 Albumin/Globulin Ratio 1.6 Vancomycin Trough < 3.0 L ABG Interpretation ABG results: 01/17/25 17:52 ABG pH 7.29 L ABG pCO2 37 ABG pO2 134 H ABG HCO3 18 L ABG O2 Saturation 100 H ABG Base Excess -8 L Assessment & Plan Problem List (1) Altered mental status: Status: Acute Assessment and plan: improving, no sz reported after admission FU with EEG (2) Suicide attempt: Status: Acute Assessment and plan: reportedly hx of suicidal attempts Sitter at the bedside. (3) Pneumonia: Status: Acute Assessment and plan: from aspiration, on antibiotics.
[2024-04-21] VITALS (10 sets, daily range): BP systolic 111–124; BP diastolic 71–83; PULSE 80–96; RESP 17–38; TEMP 36.5–37.2; O2SAT 92–99; BMI 28.1
[2024-04-21 05:31] LABS: Hepatitis A Antibody IgM Non Reactive (Non React); Hepatitis B Core Antibody IgM Non Reactive (Non React); Hepatitis B Surface Antigen Non Reactive (Non React); Hepatitis C Antibody Non Reactive (Non React)
--- NOTE | 2024-04-21 05:40 | PC.NURSE ---
pt reporting having a panic attack, trouble breathing, and he is stating that his HR can stop at any time. Pt 02 is at 94 on [address]L NC. HR 95. Dr. Ramirez was made aware, new orders for pt, see MAR.
[2024-04-21] MEDS: metroNIDAZOLE/NS 500 MG IVPB 500 MG/100 ML BAG 200 MG IV ×3 (05:49→21:52)
[2024-04-21] MEDS: hydrOXYzine HCL 25 MG TABLET PO ×3 (05:49→21:52)
[2024-04-21] MEDS: RINGERS LACTATED 1000 ML 1,000 ML 150 ML IV (06:08)
[2024-04-21 09:15] LABS: Basophils # (Auto) 0.1 Thou/mm3 (0.0-0.2); Basophils % (Auto) 0 % (0-2.5); Eosinophils % (Auto) 0 % (0-10); Hematocrit 35.1 % (41.0-53.0); Hemoglobin 12.2 g/dL (13.5-16.0); Immature Granulocytes % (Auto) 1 % (0-0); Immature Granulocytes Auto 0.17 Thou/mm3 (0.00-0.00); Lymphocytes # (Auto) 1.2 Thou/mm3 (1.0-4.8); Lymphocytes % (Auto) 9 % (10-50); Mean Corpuscular HGB Conc 34.8 g/dl (31.0-37.0); Mean Corpuscular Hemoglobin 29.8 pg (25.0-35.0); Mean Corpuscular Volume 86 fL (80-100); Monocytes # (Auto) 0.9 Thou/mm3 (0.0-0.8); Monocytes % (Auto) 7 % (0-12); Neutrophils # (Auto) 11.4 Thou/mm3 (1.8-7.7); Neutrophils % (Auto) 83 % (37-80); Nucleated Red Blood Cell % 0 /100 WBC (0); Platelet Count 180 Thou/mm3 (140-440); RDW Standard Deviation 43.4 fL (35.1-43.9); White Blood Count 13.7 Thou/mm3 (3.8-10.6)
--- NOTE | 2024-04-21 09:15 | PC.NURSE ---
Pt. showing anxiety and asking will you help me if i stop breathing, current vitals assess, breathing at the moment 21 bpm and the HR 101. Will continue to monitor the pt. is on 1:1 and mother is on bedside.
[2024-04-21] MEDS: cefTRIAXone/D5w 1gm IV premix 50 ML IV (09:16)
[2024-04-21] MEDS: HEPARIN SOD INJ 5000 UNIT/ML VIAL SC ×2 (09:17→21:53)
[2024-04-21 09:40] LABS: Alanine Aminotransferase 31 U/L (10-49); Albumin, Serum 3.9 gm/dL (3.5-5.0); Albumin/Globulin Ratio 1.5 (1.2-2.2); Alkaline Phosphatase 62 U/L (46-116); Anion Gap 14 (7-16); Aspartate Amino Transferase 30 U/L (0-34); BUN/Creatinine Ratio 10 Ratio (12-20); Bilirubin,Total 0.7 mg/dL (0.3-1.2); Blood Urea Nitrogen 10 mg/dL (9-23); Calcium 8.9 mg/dL (8.3-10.6); Carbon Dioxide 19.7 mMol/L (20.0-31.0); Chloride 109 mMol/L (98-107); Creatine Kinase 221 U/L (34-171); Estimated Creatinine Clearance 99.3 mL/min (>60); Globulin 2.6 gm/dL (2.3-3.5); Glucose 91 mg/dL (74-106); Magnesium 1.7 mg/dL (1.6-2.6); Osmolality,Calculated 283 (275-295); Phosphorous 2.4 mg/dL (2.4-5.1); Potassium 3.4 mMol/L (3.4-5.1); Sodium 143 mMol/L (136-145); Total Protein 6.5 gm/dL (5.7-8.2); eGFR > 60 See Note
--- NOTE | 2024-04-21 10:25 | PC.SS ---
SS follow up note; Patient is not medically cleared. Will need medical clearance before psych eval.
--- NOTE | 2024-04-21 10:31 | ESPR_ITS ---
<Statement entered by Terrance Meadows MD - 04/21/24 13:49> Patient was seen and examined at the bedside. Patient's EEG came negative. Morning vitals were stable. White count is improving. Hemoglobin A1c stable. Kidney functions are improving. Patient wanted to leave AMA however he was informed that we cannot make him leave AGAINST MEDICAL ADVICE as he is under crisis evaluation once he is medically cleared. Patient understood and decided to stay. Currently awaiting neurology and PT evaluation. Patient still having waxing waning mentation and was overnight requiring oxygen at 5 L as he was slightly desaturating however remains stable this morning. Will continue with ceftriaxone and metronidazole for aspiration. Hydroxyzine was given for anxiety. All labs and orders were reviewed. I saw and examined the patient, and I agree with current management stated by Dr Malik MD,PGY1. Plan of care was discussed with the attending physician and resident physician. Disclaimer: Despite multiple revisions, due to the dictation software being used, the document bellow may not be free of grammatical errors including phonetic/typographic errors. However, this does not deter from our commitment to providing health care in the patient's best interest in mind. Dr. Abdiel MD, PGY 2 Documentation for date of: 04/21/24 Subjective Subjective Interval history: Events reported for patient. Patient continues to be alert but not oriented only x 1. Patient appears to wax and wane throughout the day. Today patient shared that he was receiving oncology treatment, which is untrue currently hospitalized for overdose and acute metabolic encephalopathy. Patient is concerned that he is given going to respiratory failure and would like to return home because of this concern. Patient does not have oxygen at home. No indication for acute respiratory failure. Patient is being treated for aspiration pneumonia and on antibiotics. This was explained at length to patient. Patient is not able to make their decisions at this time as they are not alert oriented x 3. Patient's mother at bedside would like to keep patient hospitalized. And eventually transition to psychiatric care. EEG showed abnormal really likely secondary to acute metabolic encephalopathy. No seizure activity reported. Dr Toro following closely. Patient would benefit from psychiatric care. Hydroxyzine added as needed. NATALIE continues to improve. CK continues to decrease. Saline stopped. Patient has been in a rehabilitation facility previously secondary to drug use (patient's mother not sure what substance was his choice). CBD found today at patient's home. Previous suicide attempt 10 years ago. Exam Vital Signs Temp Pulse Resp BP Pulse Ox O2 Del Method O2 Flow Rate 98.1 F 96 38 H 119/83 98 Nasal Cannula 5 04/21/24 07:38 04/21/24 07:53 04/21/24 07:53 04/21/24 07:38 04/21/24 07:53 04/21/24 07:38 04/21/24 07:53 Narrative Exam General Appearance: Alert & Oriented X1, well-nourished male who is lying in bed appearing altered HEENT: Skull symmetrical and atraumatic. Conjunctivae pink and moist. . External ear without lesion or discharge. PERRLA. Straight, nares patient, mucosa pink, no discharge. No thyroid nodule appreciated. No cervical lymphadenopathy. Cardio: Normal Rate and Rhythm with S1 and S2 heart sounds. No murmurs or extra heart sounds auscultated. No bruits on carotid auscultation. No peripheral edema or cyanosis. Lungs: Symmetric with good expansion. Chest and back non-tender. Breath sounds vesicular with upper airway sounds Abdomen: Non-tender, Non-distended, Normal Reactive Bowel Sounds Neuro: YES Alert, YES cooperative, Yes oriented to person, NO place, and No time. Dysarthic speech improved.. CN grossly intact. Upper motor strength 5/5 and Lower motor strength 5/5. Sensation intact. Reflexes normal Objective Labs 04/21/24 08:11 04/21/24 08:11 Labs: Laboratory Results - last 24 hr 04/19/24 04/20/24 04/20/24 05:14 13:00 21:19 WBC RBC Hgb Hct MCV MCH MCHC RDW Std Deviation Plt Count Neut % (Auto) Lymph % (Auto) [place] % (Auto) Eos % (Auto) Baso % (Auto) Neut # (Auto) Lymph # (Auto) [place] # (Auto) Eos # (Auto) Baso # (Auto) Immature Gran # (Auto) Absolute Nucleated RBC Immature Gran % Nucleated RBC % Sodium 144 Potassium Chloride Carbon Dioxide Anion Gap BUN Creatinine Estim Creat Clear Calc eGFR BUN/Creatinine Ratio Glucose Calculated Osmolality Calcium Corrected Calcium Phosphorus Magnesium Total Bilirubin AST ALT Alkaline Phosphatase Total Creatine Kinase Total Protein Albumin Globulin Albumin/Globulin Ratio Vancomycin Trough < 3.0 L Hepatitis A IgM Ab Non Reactive Hep Bs Antigen Non Reactive Hep B Core IgM Ab Non Reactive Hepatitis C Antibody Non Reactive 04/21/24 08:11 WBC 13.7 H RBC 4.10 L Hgb 12.2 L Hct 35.1 L MCV 86 MCH 29.8 MCHC 34.8 RDW Std Deviation 43.4 Plt Count 180 Neut % (Auto) 83 H Lymph % (Auto) 9 L [place] % (Auto) 7 Eos % (Auto) 0 Baso % (Auto) 0 Neut # (Auto) 11.4 H Lymph # (Auto) 1.2 [place] # (Auto) 0.9 H Eos # (Auto) 0.0 Baso # (Auto) 0.1 Immature Gran # (Auto) 0.17 H Absolute Nucleated RBC 0.00 Immature Gran % 1 H Nucleated RBC % 0 Sodium 143 Potassium 3.4 D Chloride 109 H Carbon Dioxide 19.7 L Anion Gap 14 BUN 10 Creatinine 1.0 Estim Creat Clear Calc 99.3 eGFR > 60 BUN/Creatinine Ratio 10 L Glucose 91 Calculated Osmolality 283 Calcium 8.9 Corrected Calcium 9.0 Phosphorus 2.4 Magnesium 1.7 Total Bilirubin 0.7 AST 30 ALT 31 Alkaline Phosphatase 62 Total Creatine Kinase 221 H D Total Protein 6.5 Albumin 3.9 Globulin 2.6 Albumin/Globulin Ratio 1.5 Vancomycin Trough Hepatitis A IgM Ab Hep Bs Antigen Hep B Core IgM Ab Hepatitis C Antibody ABG Interpretation ABG results: 04/18/24 17:52 ABG pH 7.29 L ABG pCO2 37 ABG pO2 134 H ABG HCO3 18 L ABG O2 Saturation 100 H ABG Base Excess -8 L Quality Measures Quality Measures VTE prophylaxis (Heparin SC ) Assessment & Plan Assessment Current Active Medications: Generic Name Dose Route Start Last Admin Trade Name Trell PRN Reason Stop Dose Admin Dextrose 25 ml 04/18/24 18:24 Dextrose 50%-Water Inj 50 Ml Syringe IV 05/18/24 18:23 Q15MIN PRN BG 50-70 responsive npo pt Dextrose 50 ml 04/18/24 18:24 Dextrose 50%-Water Inj 50 Ml Syringe IV 05/18/24 18:23 Q15MIN PRN BG <50 OR BG <70 & pt unresponsive Glucagon 1 mg 04/18/24 18:24 Glucagon Inj 1 Mg Vial IM Q15MIN PRN BG <70, and no IV access Heparin Sodium (Porcine) 5,000 unit 04/18/24 21:00 04/21/24 09:17 Heparin Sod Inj 5000 Unit/Ml Vial SC 05/02/24 20:59 5,000 unit BID GEOVANY Administration Metronidazole 500 mg in 100 mls @ 200 mls/hr 04/18/24 18:26 04/21/24 05:49 Flagyl 500 Mg Iv IV 04/25/24 18:25 200 mls/hr Q8HR GEOVANY Administration Ceftriaxone Sodium/Dextrose 50 mls @ 100 mls/hr 04/21/24 09:00 04/21/24 09:16 Rocephin/D5w 1gm Iv Premix IV 04/28/24 08:59 100 mls/hr QDAY GEOVANY Administration Magnesium Sulfate 4 gm in 50 mls @ 12.5 mls/hr 04/21/24 10:19 Magnesium Sulfate Ivpb IV 04/21/24 14:18 X1 ONE Lorazepam 2 mg 04/18/24 19:28 Lorazepam 2 Mg/Ml Vial IVP 04/23/24 18:44 Q30MIN PRN Breakthrough Seizures Pharmacy Consult 1 each 04/18/24 18:23 Pharmacy Renal Dose Adjustment 1 Ea XX 05/18/24 18:22 PRN PRN CONSULT Polyethylene Glycol 17 gm 04/21/24 09:00 04/21/24 09:20 Polyethylene Glycol 17 Gm Packet PO 05/21/24 08:59 Not Given QDAY GEOVANY Scopolamine 1 mg 04/18/24 18:23 Scopolamine 1 Mg Tdsy TOP 05/18/24 18:29 Q3D PRN nausea Sennosides 1 tab 04/20/24 10:25 Senna Tablet PO 05/20/24 10:24 QDAY PRN CONSTIPATION Protocol Plan Patient is 39-year-old male with a past medical history of generalized anxiety disorder and history of suicide attempts with psychic medication who was admitted on 04/18/2024 for acute metabolic encephalopathy secondary to polypharmacy overdose, possible SI attempt. #Acute Metabolic Encephalopathy secondardy to psychic medication #Intentional Overdose #Possible SI Attempt #history of Seizures Patient has a history of suicidal attempts and recently lost his job, given QT of 491 overdose cannot be ruled out. Please add a one-to-one sitter. Patient consumed sertraline (entire bottle), gabapentin, trazodone, lorazepam. Please monitor for serotonin syndrome and benzos overdose. Please do not initiate lorazepam in an adult given possibility of seizures. EEG results ruled out seizure, showing abnormal readings for encephalopathy likely toxic or metabolic likely secondary to overdose. DDx: Less likely secondary to head trauma as CT head was negative versus alcohol intoxication less likely as alcohol levels will Plan -Lorazepam for breakthrough seizures only, use w/ caution -Seizure precautions -Neurochecks every 4 hours -Poison control contacted -Crisis prevention, social media content manager -Neurology consulted, appreciate recommendations Dr. Toro #Rhabdomyolysis, improved. likely 2/2 possible seizure activity vs time down on the floor CK elevated >1000; CK 04/21/2024 224 Plan: -IVF 150ml/hr D/C-->Transition to oral fluids. #Aspiration Pneumonia #Leukocytosis Given patient was found unconscious, aspiration pneumonia likely as well as emesis noted by patient's father. Chest x-ray showing suspicion for early left pneumonia. Viral pneumonia cannot be ruled out. DDx: Less likely secondary to CHF exacerbation as there is no cardiac history and enlarged heart on Cx vs NH, less likely as there is no ST elevation COVID and flu Negative. Blood culture Negative. Patient is currently on 4 L NC saturating well. Plan -Ceftriaxone 1 gm Qday 04/21/2024 -Metronidazole 500 mg Q8 Hours (no renal dosing) -Cefepime 1 gm Q 12 hours (renally dose) stopped on 04/18/2024-04/20/2024 -Sputum culture-not collected -MRSA screen - -Pharmacy to dose -Consider chest physio tomorrow and duonebs if wheezing is noted. #NATALIE, improving Patient arrived with an NATALIE, creatinine kinase greater than 0.3 change based on previous baseline of creatinine 1. Current creatinine 4 and BUN of 29. Estimated creatinine clearance of 24.7. BUN/CR 7, thus intrinsic damage can not be ruled out. pending CK levels but UA showed only 1+ blood. Consider Pre-renal NATALIE vs post renal. Improved Cr on 04/20/2024 w Cr 1.1. Plan: Avoid Nephrotoxins Renally dose medation pharmacy to dose fluids d/c on 04/21/2024 #Generalized Anxiety Disorder Hold all medication given intoxication. Plan -Hydroxyzine 25 mg TID PRN #History of Seizures Plan Ativan 2 mg every 10-15 min upto 4 times for breakthrough seizures. #Mild Elevated transaminitis Given elevated AST likely reactive. Continue to monitor DDx hepatitis versus HIV versus hypoperfusion of liver. Patient does have a history of alcohol use and mixes it with medication. Plan -Continue to monitor AST's and ALT's -Hepatitis panel- Pending -HIVE Negative #Non anion gap, metabolic acidosis, improved. Minimal decrease decrease in carbon dioxide with an anion gap of 16, based on hospital standards is considered non-anion gap as it is not greater than 16. 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 DDx: Although anion gap this can make be considered normal, they can also be considered as a elevated anion gap thus salicylate intoxication cannot be ruled out versus versus alcohol intoxication less likely given no crystals noted on UA and alcohol within normal limits. RTA type I. Plan: Treat underlying condition, fluid resuscitation Health Maintenance: Disp: Pt is currently admitted to floors for further management of acute metabolic encephalopathy, awaiting EEG FEN: Dysphagia 1 diet GI: NONE, trying to avoid QT prolongation DVT: compression device Code: Full code - The patient's plan was discussed with attending Dr. Montano and senior resident Dr. Abdiel Gan MD PGY1 Internal Medicine Attending Provider Attestation/Addendum I attest that I was physically present for the evaluation, physical examination, lab and imaging review of the patient with the residents. I discussed the case with the residents and agree with the findings and plans of care as documented above. AT bedside today, patient continues to be alert but confused. Was able to follow command but unable to answer all questions appropriately. EEG was done suggestive of encephalopathy but did not show seizure activity. Continues to be on IV antibiotics for aspiration pneumonia. Saturating well on nasal cannula. CK levels improving, WBC count, sodium and kidney function are improving as well. Patient has been able to tolerate his diet well. We will discontinue IV hydration. We will continue monitoring mental status with frequent neuro checks. Poncho Winn MD
[2024-04-21] MEDS: POTASSIUM CHLORIDE 10% 20 MEQ/15 ML UDC 40 MEQ PO (10:43)
[2024-04-21] MEDS: Magnesium Sulfate 4 GM Ivpb 4 GM/50 ML BAG IV (10:50)
--- NOTE | 2024-04-21 18:17 | PC.NURSE ---
Pt. refusing to put the O2 at this moment . O2 hs been monitored and it is varying between 94-97 % on RA. Will keep monitoring the pt.
[2024-04-21] MEDS: ACETAMINOPHEN 325 MG TABLET 650 MG PO (21:52)
--- NOTE | 2024-04-21 22:46 | PD.NEUROPROG ---
Documentation for date of: 04/21/24 Subjective Subjective Interval history: Patient was seen in [facility] today at the bedside. He has been more awake but very confused and disoriented, agitated and wanting to leave. No seizures reported after admission Exam - Neurology Vital Signs Temp Pulse Resp BP Pulse Ox O2 Del Method O2 Flow Rate 99 F 94 17 120/80 92 L Room Air 5 04/21/24 20:00 04/21/24 20:00 04/21/24 20:00 04/21/24 20:00 04/21/24 20:00 04/21/24 20:00 04/21/24 16:14 Narrative Exam GENERAL APPEARANCE: Well hydrated, well-nourished in no acute distress. HEENT: Normocephalic, atraumatic, extraocular movements intact. Pupils: Equal reacting to light and accommodation NECK: Supple, no JVD or bruits. CARDIOVASULAR: Heart: S1, S2 heard, regular without S3-S4 or murmur no rubs or gallops. LUNGS/CHEST: Clear to auscultation bilaterally. No rails, rhonchi, or wheezing. Normal inspection. ABDOMEN: Soft, nontender, with normal bowel sounds. No pulsatile masses. No rebound, rigidity, or guarding. Normal inspection and palpation. EXTREMITIES: Normal inspection and palpation. No edema, clubbing or cyanosis. SKIN: Warm and dry without rashes. Normal inspection. MUSCULOSKELETAL: No cervical, thoracic, lumbar or midline bony tenderness. Normal inspection. NEURO: Alert, awake and oriented x2. Cranial nerves: II through XII grossly intact. Speech and language: Normal with no dysarthria or dysphasia. Motor system: Tone and bulk: Normal: Strength: 5 out of 5 in all 4 extremities; No pronator drift noted. Deep tendon reflexes: 2+ bilaterally symmetrical. Plantar reflex: Downgoing bilaterally. Sensory system: Intact to all modalities of sensation bilaterally. Coordination: Intact to [id number] and [id number] test bilaterally. No ataxia, no dysmetria, or dysdiadochokinesia noted. No intention tremors noted. Gait: Not tested. No signs of meningeal irritation noted. PSYCHIATRIC: Fluctuating mental status Objective Labs 04/22/24 04:45 04/22/24 04:45 Labs: Laboratory Results - last 24 hr 04/19/24 04/21/24 05:14 08:11 WBC 13.7 H RBC 4.10 L Hgb 12.2 L Hct 35.1 L MCV 86 MCH 29.8 MCHC 34.8 RDW Std Deviation 43.4 Plt Count 180 Neut % (Auto) 83 H Lymph % (Auto) 9 L [place] % (Auto) 7 Eos % (Auto) 0 Baso % (Auto) 0 Neut # (Auto) 11.4 H Lymph # (Auto) 1.2 [place] # (Auto) 0.9 H Eos # (Auto) 0.0 Baso # (Auto) 0.1 Immature Gran # (Auto) 0.17 H Absolute Nucleated RBC 0.00 Immature Gran % 1 H Nucleated RBC % 0 Sodium 143 Potassium 3.4 D Chloride 109 H Carbon Dioxide 19.7 L Anion Gap 14 BUN 10 Creatinine 1.0 Estim Creat Clear Calc 99.3 eGFR > 60 BUN/Creatinine Ratio 10 L Glucose 91 Calculated Osmolality 283 Calcium 8.9 Corrected Calcium 9.0 Phosphorus 2.4 Magnesium 1.7 Total Bilirubin 0.7 AST 30 ALT 31 Alkaline Phosphatase 62 Total Creatine Kinase 221 H D Total Protein 6.5 Albumin 3.9 Globulin 2.6 Albumin/Globulin Ratio 1.5 Hepatitis A IgM Ab Non Reactive Hep Bs Antigen Non Reactive Hep B Core IgM Ab Non Reactive Hepatitis C Antibody Non Reactive ABG Interpretation ABG results: 04/18/24 17:52 ABG pH 7.29 L ABG pCO2 37 ABG pO2 134 H ABG HCO3 18 L ABG O2 Saturation 100 H ABG Base Excess -8 L Assessment & Plan Assessment and plan (1) Altered mental status: Status: Acute Assessment and plan: Improving, but not back to baseline yet. (2) Suicide attempt: Status: Acute Assessment and plan: needs crisis evaluation to prevent recurrence (3) Pneumonia: Status: Acute Assessment and plan: treated with antibiotics.
[2024-04-22] VITALS (13 sets, daily range): BP systolic 116–133; BP diastolic 71–92; PULSE 74–94; RESP 16–22; TEMP 36.4–37.2; O2SAT 91–97
[2024-04-22] MEDS: metroNIDAZOLE/NS 500 MG IVPB 500 MG/100 ML BAG 200 MG IV ×3 (05:07→21:18)
[2024-04-22] MEDS: guaiFENesin/DM TABLET 1 EACH PO (05:07)
[2024-04-22 06:13] LABS: Basophils % (Auto) 0 % (0-2.5); Eosinophils # (Auto) 0.1 Thou/mm3 (0.0-0.5); Eosinophils % (Auto) 1 % (0-10); Hemoglobin 12.7 g/dL (13.5-16.0); Immature Granulocytes % (Auto) 1 % (0-0); Immature Granulocytes Auto 0.08 Thou/mm3 (0.00-0.00); Lymphocytes # (Auto) 1.2 Thou/mm3 (1.0-4.8); Lymphocytes % (Auto) 11 % (10-50); Mean Corpuscular HGB Conc 35.3 g/dl (31.0-37.0); Mean Corpuscular Hemoglobin 30.1 pg (25.0-35.0); Mean Corpuscular Volume 85 fL (80-100); Monocytes % (Auto) 9 % (0-12); Neutrophils # (Auto) 8.3 Thou/mm3 (1.8-7.7); Neutrophils % (Auto) 78 % (37-80); Nucleated Red Blood Cell % 0 /100 WBC (0); Platelet Count 184 Thou/mm3 (140-440); RDW Standard Deviation 43.4 fL (35.1-43.9); Red Blood Count 4.22 Miln/mm3 (4.50-5.90); White Blood Count 10.6 Thou/mm3 (3.8-10.6)
[2024-04-22 07:01] LABS: Alanine Aminotransferase 26 U/L (10-49); Albumin/Globulin Ratio 1.5 (1.2-2.2); Alkaline Phosphatase 64 U/L (46-116); Anion Gap 13 (7-16); Aspartate Amino Transferase 15 U/L (0-34); BUN/Creatinine Ratio 13 Ratio (12-20); Bilirubin,Total 0.7 mg/dL (0.3-1.2); Blood Urea Nitrogen 12 mg/dL (9-23); Calcium 9.2 mg/dL (8.3-10.6); Calcium (Corrected) 9.2 mg/dL (8.5-10.1); Carbon Dioxide 19.1 mMol/L (20.0-31.0); Chloride 111 mMol/L (98-107); Creatinine (Component) 0.9 mg/dL (0.6-1.3); Estimated Creatinine Clearance 110.3 mL/min (>60); Globulin 2.7 gm/dL (2.3-3.5); Glucose 87 mg/dL (74-106); Magnesium 1.8 mg/dL (1.6-2.6); Osmolality,Calculated 283 (275-295); Phosphorous 2.7 mg/dL (2.4-5.1); Potassium 3.6 mMol/L (3.4-5.1); Sodium 143 mMol/L (136-145); Total Protein 6.7 gm/dL (5.7-8.2); eGFR > 60 See Note
[2024-04-22] MEDS: ACETAMINOPHEN 325 MG TABLET 650 MG PO ×2 (07:59→17:51)
[2024-04-22] MEDS: HEPARIN SOD INJ 5000 UNIT/ML VIAL SC ×2 (09:30→21:18)
[2024-04-22] MEDS: POTASSIUM CHLORIDE 10% 20 MEQ/15 ML UDC PO (09:31)
[2024-04-22] MEDS: Magnesium Sulfate 2 GM Ivpb 2 GM/50 ML BAG IV (09:32)
[2024-04-22] MEDS: cefTRIAXone/D5w 1gm IV premix 50 ML IV (09:32)
[2024-04-22] MEDS: POLYETHYLENE GLYCOL 17 GM PACKET PO (09:37)
--- NOTE | 2024-04-22 10:16 | PC.SS ---
SS update: patient is pending neurology recommendations. Patient is pending medical clearance for mental health evaluation.
--- NOTE | 2024-04-22 12:45 | ESPR_ITS ---
<Statement entered by Terrance Meadows MD - 04/22/24 15:15> Patient was seen and examined at the bedside this morning. No acute overnight events reported. Patient's mother was concerned for patient's disposition plan. professional services consultant are currently working on psych eval. You are recommended to not start any medications at this point. We encouraged the patient to walk around with PT and ambulate as tolerated. PT recommended home health services. Will wait for patient's overall improvement and likely clear him medically tomorrow morning as he is AOx3 now. Labs were stable. All labs and orders were reviewed. I saw and examined the patient, and I agree with current management stated by Dr Malik MD,PGY1. Plan of care was discussed with the attending physician and resident physician. Disclaimer: Despite multiple revisions, due to the dictation software being used, the document bellow may not be free of grammatical errors including phonetic/typographic errors. However, this does not deter from our commitment to providing health care in the patient's best interest in mind. Dr. Abdiel MD, PGY 2 Documentation for date of: 04/22/24 Subjective Subjective Interval history: No over night, pateint's mother was concerned for patinet's well being and was worried he would try to AMA. Patient continued to demonstate improvement today. Alert and Oriented X 3. Patient was teary eyed when speaking out the events that transpired. Patient will be restarted at a lower dose of Sertraline tomorrow and Gabapentin 100 TID and will likely be evaluated with CRISIS team. Chloroseptic spray ordered for sore throat. PT-->return home with Home Health. Exam Vital Signs Temp Pulse Resp BP Pulse Ox O2 Del Method O2 Flow Rate 97.5 F 92 22 H 116/80 97 Room Air 5 04/22/24 04:00 04/22/24 04:10 04/22/24 04:10 04/22/24 04:00 04/22/24 04:10 04/22/24 04:00 04/22/24 04:10 Narrative Exam General Appearance: Alert & Oriented X3, well-nourished male who is lying in no acute distress but underlying tone of mistrust. HEENT: Skull symmetrical and atraumatic. Conjunctivae pink and moist. . External ear without lesion or discharge. PERRLA. Straight, nares patient, mucosa pink, no discharge. No thyroid nodule appreciated. No cervical lymphadenopathy. Cardio: Normal Rate and Rhythm with S1 and S2 heart sounds. No murmurs or extra heart sounds auscultated. No bruits on carotid auscultation. No peripheral edema or cyanosis. Lungs: Symmetric with good expansion. Chest and back non-tender. Breath sounds vesicular with upper airway sounds Abdomen: Non-tender, Non-distended, Normal Reactive Bowel Sounds Neuro: YES Alert, YES cooperative, Yes oriented to person, Yes place, and Yes time. Dysarthic speech improved.. CN grossly intact. Upper motor strength 5/5 and Lower motor strength 5/5. Sensation intact. Reflexes normal Objective Labs 04/22/24 04:45 04/22/24 04:45 Labs: Laboratory Results - last 24 hr 04/22/24 04:45 WBC 10.6 RBC 4.22 L Hgb 12.7 L Hct 36.0 L MCV 85 MCH 30.1 MCHC 35.3 RDW Std Deviation 43.4 Plt Count 184 Neut % (Auto) 78 Lymph % (Auto) 11 Lee % (Auto) 9 Eos % (Auto) 1 Baso % (Auto) 0 Neut # (Auto) 8.3 H Lymph # (Auto) 1.2 Lee # (Auto) 1.0 H Eos # (Auto) 0.1 Baso # (Auto) 0.0 Immature Gran # (Auto) 0.08 H Absolute Nucleated RBC 0.00 Immature Gran % 1 H Nucleated RBC % 0 Sodium 143 Potassium 3.6 Chloride 111 H Carbon Dioxide 19.1 L Anion Gap 13 BUN 12 Creatinine 0.9 Estim Creat Clear Calc 110.3 eGFR > 60 BUN/Creatinine Ratio 13 Glucose 87 Calculated Osmolality 283 Calcium 9.2 Corrected Calcium 9.2 Phosphorus 2.7 Magnesium 1.8 Total Bilirubin 0.7 AST 15 ALT 26 Alkaline Phosphatase 64 Total Protein 6.7 Albumin 4.0 Globulin 2.7 Albumin/Globulin Ratio 1.5 ABG Interpretation ABG results: 04/18/24 17:52 ABG pH 7.29 L ABG pCO2 37 ABG pO2 134 H ABG HCO3 18 L ABG O2 Saturation 100 H ABG Base Excess -8 L Quality Measures Quality Measures VTE prophylaxis (Heparin SC ) Assessment & Plan Assessment Current Active Medications: Generic Name Dose Route Start Last Admin Trade Name Freq PRN Reason Stop Dose Admin Acetaminophen 650 mg 04/21/24 19:37 04/22/24 07:59 Acetaminophen 325 Mg Tablet PO 05/21/24 19:36 650 mg Q6HR PRN Administration Fever >100.3 or pain Dextrose 25 ml 04/18/24 18:24 Dextrose 50%-Water Inj 50 Ml Syringe IV 05/18/24 18:23 Q15MIN PRN BG 50-70 responsive npo pt Dextrose 50 ml 04/18/24 18:24 Dextrose 50%-Water Inj 50 Ml Syringe IV 05/18/24 18:23 Q15MIN PRN BG <50 OR BG <70 & pt unresponsive Glucagon 1 mg 04/18/24 18:24 Glucagon Inj 1 Mg Vial IM Q15MIN PRN BG <70, and no IV access Heparin Sodium (Porcine) 5,000 unit 04/18/24 21:00 04/22/24 09:30 Heparin Sod Inj 5000 Unit/Ml Vial SC 05/02/24 20:59 5,000 unit BID GEOVANY Administration Hydroxyzine HCl 25 mg 04/21/24 10:54 04/21/24 21:52 Hydroxyzine Hcl 25 Mg Tablet PO 05/21/24 13:59 25 mg TID PRN Administration ANXIETY Metronidazole 500 mg in 100 mls @ 200 mls/hr 04/18/24 18:26 04/22/24 05:07 Flagyl 500 Mg Iv IV 04/25/24 18:25 200 mls/hr Q8HR GEOVANY Administration Ceftriaxone Sodium/Dextrose 50 mls @ 100 mls/hr 04/21/24 09:00 04/22/24 09:32 Rocephin/D5w 1gm Iv Premix IV 04/28/24 08:59 100 mls/hr QDAY GEOVANY Administration Lorazepam 2 mg 04/18/24 19:28 Lorazepam 2 Mg/Ml Vial IVP 04/23/24 18:44 Q30MIN PRN Breakthrough Seizures Pharmacy Consult 1 each 04/18/24 18:23 Pharmacy Renal Dose Adjustment 1 Ea XX 05/18/24 18:22 PRN PRN CONSULT Polyethylene Glycol 17 gm 04/21/24 09:00 04/22/24 09:37 Polyethylene Glycol 17 Gm Packet PO 05/21/24 08:59 17 gm QDAY GEOVANY Administration Scopolamine 1 mg 01/17/25 18:23 Scopolamine 1 Mg Tdsy TOP 05/18/24 18:29 Q3D PRN nausea Sennosides 1 tab 04/20/24 10:25 Senna Tablet PO 05/20/24 10:24 QDAY PRN CONSTIPATION Protocol Plan Patient is 39-year-old male with a past medical history of generalized anxiety disorder and history of suicide attempts with psychic medication who was admitted on 04/18/2024 for acute metabolic encephalopathy secondary to polypharmacy overdose, possible SI attempt. #Acute Metabolic Encephalopathy secondardy to psychic medication, improved #Intentional Overdose #Possible SI Attempt #history of Seizures Patient has a history of suicidal attempts and recently lost his job, given QT of 491 overdose cannot be ruled out. Please add a one-to-one sitter. Patient consumed sertraline (entire bottle), gabapentin, trazodone, lorazepam. Please monitor for serotonin syndrome and benzos overdose. Please do not initiate lorazepam in an adult given possibility of seizures. EEG results ruled out seizure, showing abnormal readings for encephalopathy likely toxic or metabolic likely secondary to overdose. Crisis prevention to evaluate tomorrow DDx: Less likely secondary to head trauma as CT head was negative versus alcohol intoxication less likely as alcohol levels will Plan -Resume gabapentin and Sertraline tomororw -Lorazepam for breakthrough seizures only, use w/ caution -Seizure precautions -Neurochecks every 4 hours -Poison control contacted -Crisis prevention, social work msw -Neurology consulted, appreciate recommendations Dr. Toro #Aspiration Pneumonia #Leukocytosis, improving Given patient was found unconscious, aspiration pneumonia likely as well as emesis noted by patient's father. Chest x-ray showing suspicion for early left pneumonia. Viral pneumonia cannot be ruled out. DDx: Less likely secondary to CHF exacerbation as there is no cardiac history and enlarged heart on Cx vs VT, less likely as there is no ST elevation COVID and flu Negative. Blood culture Negative. Patient is currently on 4 L NC saturating well. Plan -Ceftriaxone 1 gm Qday 04/21/2024 -Metronidazole 500 mg Q8 Hours (no renal dosing) -Cefepime 1 gm Q 12 hours (renally dose) stopped on 04/18/2024-04/20/2024 -Sputum culture-not collected -Pharmacy to dose -Consider chest physio tomorrow and duonebs if wheezing is noted. #Generalized Anxiety Disorder Hold all medication given intoxication. Plan -Sertraline 25 mg HS tomorrow -Gabpapentin 100 TID to start tomorrow -Hydroxyzine 25 mg TID PRN -Consider small does of Seroquel if needed overnight #History of Seizures Plan Ativan 2 mg every 10-15 min upto 4 times for breakthrough seizures. #Mild Elevated transaminitis Given elevated AST likely reactive. Continue to monitor DDx hepatitis versus HIV versus hypoperfusion of liver. Patient does have a history of alcohol use and mixes it with medication. Plan -Continue to monitor AST's and ALT's -Hepatitis panel- Negative -HIV Negative #Non anion gap, metabolic acidosis, Resolved. Minimal decrease decrease in carbon dioxide with an anion gap of 16, based on hospital standards is considered non-anion gap as it is not greater than 16. 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 DDx: Although anion gap this can make be considered normal, they can also be considered as a elevated anion gap thus salicylate intoxication cannot be ruled out versus versus alcohol intoxication less likely given no crystals noted on UA and alcohol within normal limits. RTA type I. Plan: Treat underlying condition, fluid resuscitation #NATALIE, resolved Patient arrived with an NATALIE, creatinine kinase greater than 0.3 change based on previous baseline of creatinine 1. Current creatinine 4 and BUN of 29. Estimated creatinine clearance of 24.7. BUN/CR 7, thus intrinsic damage can not be ruled out. pending CK levels but UA showed only 1+ blood. Consider Pre-renal NATALIE vs post renal. Improved Cr on 04/20/2024 w Cr 1.1. Plan: Avoid Nephrotoxins Renally dose medation pharmacy to dose fluids d/c on 04/21/2024 #Rhabdomyolysis, Resolved. likely 2/2 possible seizure activity vs time down on the floor CK elevated >1000; CK 04/21/2024 224 Plan: Transition to oral fluids. Health Maintenance: Disp: Pt is currently admitted to floors for further management of acute metabolic encephalopathy, awaiting EEG FEN: Dysphagia 3 diet GI: NONE, trying to avoid QT prolongation DVT: compression device, ambulatory Code: Full code - The patient's plan was discussed with attending Dr. Montano and senior resident Dr. Abdiel Gan MD PGY1 Internal Medicine Attending Provider Attestation/Addendum I attest that I was physically present for the evaluation, physical examination, lab and imaging review of the patient with the residents. I discussed the case with the residents and agree with the findings and plans of care as documented above. Poncho Winn MD
--- NOTE | 2024-04-22 14:33 | PC.SS ---
TICO Urias and JASMIN Duffy met at bedside with the patient to complete initial assessment. ASW introduced self, role, and reason for assessment. ASW disclosed limits of confidentiality. Patient appeared alert and oriented to self, place, and situation. Patient was pleasant and cooperative during the assessment. Patient?s thought process was linear and organized. No signs of delusions, paranoia or visual hallucinations observed. When asked what brought the patient into the Emergency Department, the patient informed ?I had a bad day?. When asked for more information regarding the reason the patient was admitted, the patient informed he did not recall exactly what let him to the hospital. Per medical team, the patient was BIBA on potential overdose. Patient was said to be found unconscious at home with empty pill bottles surrounding him. Patient was admitted for medical workup on possible overdose. When asked if there were any significant events that occurred recently, the patient began to get tearful and informed that his grandfather had during February 2024. Patient informed he and his grandfather were very close and patient described how his grandfather would cook for him and help care for him. Patient informed he continued with mental health services during that time to help cope through difficult time. Furthermore, patient informs he lives at home with both parents. Patient confirmed home address. Patient informs he is independent with ADL?s. Patient denies use of DME at home. 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 When asked if the patient was currently employed with them, the patient informed I'm not sure . Patient states he follows Dr. Glenna Armstrong at [facility] in [place] for primary care. When asked about substance use, the patient denies use. Regarding mental health history, the patient informs he is diagnosed with depression disorder. Patient informs he takes antidepressants; Zoloft. Patient informs he is compliant with taking the medication. Patient states he follows Dr. Gerber Pederson with [facility] for mental health services. Patient also shares he is aligned with [facility] for mental health therapy. Per patient, he also follows a psychiatrist via telehealth. Patient denies having any history of previous suicide attempt. Patient also denies history of being placed on a 5150 hold in the past. Patient denies history of psychiatric placement at a mental health hospital. Per patient he informed ?I would not do well in a locked down facility?, patient explained how he would panic. Today, the patient denies suicidal ideation and homicidal ideation. The patient also denied audio and visual hallucinations. Patient informs his support network includes of his friend, Reena. Patient informs he does not recall her contact number, however her information could be located on his cell phone. Patient informs he would be willing to safety plan with his friend Reena if he was able to. Per Wilson scale screening completed by nursing staff, the patient is low risk. Patient was explained that he is still pending medical clearance at this time prior to discussing a discharge plan depending on if the patient meets criteria for 5150 hold or safety plan. Patient verbalized understanding.
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
[2024-04-22] MEDS: ONDANSETRON INJ 2 MG/ML INJ 2 ML 4 MG IV (16:08)
--- NOTE | 2024-04-22 17:15 | PC.SS ---
SS update: patient is pending Dr. Toro consult and medical clearance.
[2024-04-22] MEDS: hydrOXYzine HCL 25 MG TABLET PO ×2 (17:51→23:14)
[2024-04-22] MEDS: PHENOL/NA PHENOLATE (Chloraseptic) SPRY 180 ML BTL PO (21:17)
--- NOTE | 2024-04-22 23:01 | PD.NEUROPROG ---
Documentation for date of: 04/22/24 Subjective Subjective Interval history: Patient was seen in [facility] today at the bedside. No new symptoms reported, no recurrence of seizures after admission. He is back to his baseline. Tolerating oral diet well. Exam - Neurology Vital Signs Temp Pulse Resp BP Pulse Ox O2 Del Method O2 Flow Rate 97.5 F 94 20 131/92 H 92 L Room Air 5 04/22/24 19:55 04/22/24 20:00 04/22/24 19:55 04/22/24 19:55 04/22/24 19:55 04/22/24 19:55 04/22/24 04:10 Narrative Exam GENERAL APPEARANCE: Well hydrated, well-nourished in no acute distress. HEENT: Normocephalic, atraumatic, extraocular movements intact. Pupils: Equal reacting to light and accommodation NECK: Supple, no JVD or bruits. CARDIOVASULAR: Heart: S1, S2 heard, regular without S3-S4 or murmur no rubs or gallops. LUNGS/CHEST: Clear to auscultation bilaterally. No rails, rhonchi, or wheezing. Normal inspection. ABDOMEN: Soft, nontender, with normal bowel sounds. No pulsatile masses. No rebound, rigidity, or guarding. Normal inspection and palpation. EXTREMITIES: Normal inspection and palpation. No edema, clubbing or cyanosis. SKIN: Warm and dry without rashes. Normal inspection. MUSCULOSKELETAL: No cervical, thoracic, lumbar or midline bony tenderness. Normal inspection. NEURO: Alert, awake and oriented x3. Cranial nerves: II through XII grossly intact. Speech and language: Normal with no dysarthria or dysphasia. Motor system: Tone and bulk: Normal: Strength: 5 out of 5 in all 4 extremities; No pronator drift noted. Deep tendon reflexes: 2+ bilaterally symmetrical. Plantar reflex: Downgoing bilaterally. Sensory system: Intact to all modalities of sensation bilaterally. Coordination: Intact to [id number] and gesi-kzbf-vced test bilaterally. No ataxia, no dysmetria, or dysdiadochokinesia noted. No intention tremors noted. Gait: Normal. Toe, heel, tandem walk all are normal. Romberg: Negative. No signs of meningeal irritation noted. PSYCHIATRIC: Normal mood and affect. Denies homicidal or suicidal ideation. Objective Labs 04/22/24 04:45 04/22/24 04:45 Labs: Laboratory Results - last 24 hr 04/22/24 04:45 WBC 10.6 RBC 4.22 L Hgb 12.7 L Hct 36.0 L MCV 85 MCH 30.1 MCHC 35.3 RDW Std Deviation 43.4 Plt Count 184 Neut % (Auto) 78 Lymph % (Auto) 11 [place] % (Auto) 9 Eos % (Auto) 1 Baso % (Auto) 0 Neut # (Auto) 8.3 H Lymph # (Auto) 1.2 [place] # (Auto) 1.0 H Eos # (Auto) 0.1 Baso # (Auto) 0.0 Immature Gran # (Auto) 0.08 H Absolute Nucleated RBC 0.00 Immature Gran % 1 H Nucleated RBC % 0 Sodium 143 Potassium 3.6 Chloride 111 H Carbon Dioxide 19.1 L Anion Gap 13 BUN 12 Creatinine 0.9 Estim Creat Clear Calc 110.3 eGFR > 60 BUN/Creatinine Ratio 13 Glucose 87 Calculated Osmolality 283 Calcium 9.2 Corrected Calcium 9.2 Phosphorus 2.7 Magnesium 1.8 Total Bilirubin 0.7 AST 15 ALT 26 Alkaline Phosphatase 64 Total Protein 6.7 Albumin 4.0 Globulin 2.7 Albumin/Globulin Ratio 1.5 ABG Interpretation ABG results: 04/18/24 17:52 ABG pH 7.29 L ABG pCO2 37 ABG pO2 134 H ABG HCO3 18 L ABG O2 Saturation 100 H ABG Base Excess -8 L Assessment & Plan Assessment and plan (1) Altered mental status: Status: Acute Assessment and plan: resolved. back to baseline cleared neurologically ok to resume Gabapentin 300 mg tid, Sertraline 50 mg daily only upon discharge. (2) Suicide attempt: Status: Acute Assessment and plan: needs crisis evaluation to prevent recurrence (3) Pneumonia: Status: Acute Assessment and plan: treated with antibiotics.
[2024-04-23] VITALS (9 sets, daily range): BP systolic 114–146; BP diastolic 73–98; PULSE 71–90; RESP 16–20; TEMP 36.2–36.6; O2SAT 92–96; BMI 28.6
[2024-04-23] MEDS: metroNIDAZOLE/NS 500 MG IVPB 500 MG/100 ML BAG 200 MG IV ×3 (05:11→21:46)
[2024-04-23] MEDS: ACETAMINOPHEN 325 MG TABLET 650 MG PO ×3 (05:11→20:27)
[2024-04-23] MEDS: GABAPENTIN 100 MG CAPSULE PO (05:11)
[2024-04-23] MEDS: HEPARIN SOD INJ 5000 UNIT/ML VIAL SC (08:12)
[2024-04-23] MEDS: cefTRIAXone/D5w 1gm IV premix 50 ML IV (08:12)
[2024-04-23] MEDS: ONDANSETRON INJ 2 MG/ML INJ 2 ML 4 MG IV ×3 (08:13→21:47)
--- NOTE | 2024-04-23 09:51 | PC.SS ---
SS update: Spoke with Dr. Meadows she informed the patient had complained of having black/dark stool. Per Dr. Meadows, hold off on evaluation to confirm patient is medically cleared.
[2024-04-23] MEDS: POTASSIUM CHLORIDE 20 mEq TABCR PO (10:28)
[2024-04-23] MEDS: Magnesium Sulfate 2 GM Ivpb 2 GM/50 ML BAG IV (10:29)
[2024-04-23] MEDS: SCOPOLAMINE 1 MG TDSY TOP (13:01)
[2024-04-23] MEDS: GABAPENTIN 300 MG CAPSULE PO ×2 (13:08→21:47)
--- NOTE | 2024-04-23 14:16 | PC.SS ---
Rounding note: patient pending FOBT.
--- NOTE | 2024-04-23 14:48 | ESPR_ITS ---
<Statement entered by Terrance Meadows MD - 04/23/24 14:55> I saw and examined the patient, and I agree with current management stated by Dr Malik MD,PGY1. Plan of care was discussed with the attending physician and resident physician. Disclaimer: Despite multiple revisions, due to the dictation software being used, the document bellow may not be free of grammatical errors including phonetic/typographic errors. However, this does not deter from our commitment to providing health care in the patient's best interest in mind. Dr. Abdiel MD, PGY 2 Documentation for date of: 04/23/24 Subjective Subjective Interval history: No events reported. Concern for melena, pending FOBT. Patient continues to to improve and is currently alert and oriented x 3. Social workers/crisis prevention team currently working on psych evaluation. Physical therapy completed. Home with home health ordered. Exam Vital Signs Temp Pulse Resp BP Pulse Ox O2 Del Method O2 Flow Rate 97.6 F 81 17 120/89 H 95 Room Air 5 04/23/24 12:00 04/23/24 12:00 04/23/24 12:04/23/24 12:04/23/24 12:04/23/24 12:00 04/22/24 04:10 Narrative Exam General Appearance: Alert & Oriented X3, well-nourished male who is lying in no acute distress HEENT: Skull symmetrical and atraumatic. Conjunctivae pink and moist. . External ear without lesion or discharge. PERRLA. Straight, nares patient, mucosa pink, no discharge. No thyroid nodule appreciated. No cervical lymphadenopathy. Cardio: Normal Rate and Rhythm with S1 and S2 heart sounds. No murmurs or extra heart sounds auscultated. No bruits on carotid auscultation. No peripheral edema or cyanosis. Lungs: Symmetric with good expansion. Chest and back non-tender. Breath sounds vesicular with upper airway sounds Abdomen: Non-tender, Non-distended, Normal Reactive Bowel Sounds Neuro: YES Alert, YES cooperative, Yes oriented to person, Yes place, and Yes time. Dysarthic speech improved.. CN grossly intact. Upper motor strength 5/5 and Lower motor strength 5/5. Sensation intact. Reflexes normal Objective Labs 04/24/24 05:37 04/24/24 05:37 ABG Interpretation ABG results: 04/18/24 17:52 ABG pH 7.29 L ABG pCO2 37 ABG pO2 134 H ABG HCO3 18 L ABG O2 Saturation 100 H ABG Base Excess -8 L Quality Measures Quality Measures VTE prophylaxis (Heparin SC ) Assessment & Plan Assessment Current Active Medications: Generic Name Dose Route Start Last Admin Trade Name Freq PRN Reason Stop Dose Admin Acetaminophen 650 mg 04/21/24 19:37 04/23/24 05:11 Acetaminophen 325 Mg Tablet PO 05/21/24 19:36 650 mg Q6HR PRN Administration Fever >100.3 or pain Dextrose 25 ml 04/18/24 18:24 Dextrose 50%-Water Inj 50 Ml Syringe IV 05/18/24 18:23 Q15MIN PRN BG 50-70 responsive npo pt Dextrose 50 ml 04/18/24 18:24 Dextrose 50%-Water Inj 50 Ml Syringe IV 05/18/24 18:23 Q15MIN PRN BG <50 OR BG <70 & pt unresponsive Gabapentin 300 mg 04/23/24 14:00 04/23/24 13:08 Gabapentin 300 Mg Capsule PO 05/23/24 13:59 300 mg TID GEOVANY Administration Glucagon 1 mg 04/18/24 18:24 Glucagon Inj 1 Mg Vial IM Q15MIN PRN BG <70, and no IV access Heparin Sodium (Porcine) 5,000 unit 04/18/24 21:00 04/23/24 08:12 Heparin Sod Inj 5000 Unit/Ml Vial SC 05/02/24 20:59 5,000 unit BID GEOVANY Administration Hydroxyzine HCl 25 mg 04/21/24 10:54 04/22/24 23:14 Hydroxyzine Hcl 25 Mg Tablet PO 05/21/24 13:59 25 mg TID PRN Administration ANXIETY Metronidazole 500 mg in 100 mls @ 200 mls/hr 04/18/24 18:26 04/23/24 13:01 Flagyl 500 Mg Iv IV 04/25/24 18:25 200 mls/hr Q8HR GEOVANY Administration Ceftriaxone Sodium/Dextrose 50 mls @ 100 mls/hr 04/21/24 09:00 04/23/24 08:12 Rocephin/D5w 1gm Iv Premix IV 04/28/24 08:59 100 mls/hr QDAY GEOVANY Administration Lorazepam 2 mg 04/18/24 19:28 Lorazepam 2 Mg/Ml Vial IVP 04/23/24 18:44 Q30MIN PRN Breakthrough Seizures Ondansetron HCl 4 mg 04/22/24 15:55 04/23/24 08:13 Ondansetron Inj 2 Mg/Ml Inj 2 Ml IV 05/22/24 15:54 4 mg Q6HR PRN Administration NAUSEA OR VOMITING Protocol Pharmacy Consult 1 each 04/18/24 18:23 Pharmacy Renal Dose Adjustment 1 Ea XX 05/18/24 18:22 PRN PRN CONSULT Phenol/Menthol 1 ml 04/22/24 18:08 04/22/24 21:17 Phenol/Na Phenolate (Chloraseptic) [place] 180 Ml Btl PO 05/22/24 17:59 1 ml Q6HR PRN Administration SORE THROAT Polyethylene Glycol 17 gm 04/21/24 09:00 04/23/24 08:13 Polyethylene Glycol 17 Gm Packet PO 05/21/24 08:59 Not Given QDAY [facility] Sennosides 1 tab 04/20/24 10:25 Senna Tablet PO 05/20/24 10:24 QDAY PRN CONSTIPATION Protocol Sertraline HCl 50 mg 04/23/24 21:00 Sertraline Hcl 25 Mg Tablet PO 05/23/24 20:59 HS [facility] Plan Patient is 39-year-old male with a past medical history of generalized anxiety disorder and history of suicide attempts with psychic medication who was admitted on 04/18/2024 for acute metabolic encephalopathy secondary to polypharmacy overdose, possible SI attempt. #Upper GI Bleed #Normocytic Anemia #Melena (?) Single episode of melena reported in stool this morning. Upper GI bleed likely given history of overdose, thus Borehaave can not be ruled out given fluctuating Hgb and Hct since admission being normocytic. DDx: Sertraline which may cause bleeding vs gastric ulcer Plan -Monitor Hgb & Hct -Transfuse if <7 hgb -FOBT Pending -Stop subq heparin -compression device #Acute Metabolic Encephalopathy secondary to psychic medication, improved #Intentional Overdose #Possible SI Attempt #history of Seizures Patient has a history of suicidal attempts and recently lost his job, given QT of 491 overdose cannot be ruled out. Please add a one-to-one sitter. Patient consumed sertraline (entire bottle), gabapentin, trazodone, lorazepam. Please monitor for serotonin syndrome and benzos overdose. Please do not initiate lorazepam in an adult given possibility of seizures. EEG results ruled out seizure, showing abnormal readings for encephalopathy likely toxic or metabolic likely secondary to overdose. Crisis prevention to evaluate tomorrow DDx: Less likely secondary to head trauma as CT head was negative versus alcohol intoxication less likely as alcohol levels will Plan -Resume gabapentin 300 TID and Sertraline 50 mg HS -Lorazepam for breakthrough seizures only, use w/ caution -Seizure precautions -Neurochecks every 4 hours -Poison control contacted -Crisis prevention, social work msw -Neurology consulted, appreciate recommendations Dr. Toro #Aspiration Pneumonia #Leukocytosis, Resolved Given patient was found unconscious, aspiration pneumonia likely as well as emesis noted by patient's father. Chest x-ray showing suspicion for early left pneumonia. Viral pneumonia cannot be ruled out. DDx: Less likely secondary to CHF exacerbation as there is no cardiac history and enlarged heart on Cx vs AK, less likely as there is no ST elevation COVID and flu Negative. Blood culture Negative. Patient is currently on 4 L NC saturating well. Plan -Ceftriaxone 1 gm Qday 04/21/2024-04/28/2024-->consider transition to oral -Metronidazole 500 mg Q8 Hours (no renal dosing) 04/21/2024 -Cefepime 1 gm Q 12 hours (renally dose) stopped on 04/18/2024-04/20/2024 -Sputum culture-not collected -Pharmacy to dose -Consider chest physio tomorrow and duonebs if wheezing is noted. #Generalized Anxiety Disorder Hold all medication given intoxication. Plan -Sertraline 25 mg HS -Gabpapentin 300 TID -Hydroxyzine 25 mg TID PRN #History of Seizures Plan Ativan 2 mg every 10-15 min upto 4 times for breakthrough seizures. #Non anion gap, metabolic acidosis, improved Minimal decrease decrease in carbon dioxide with an anion gap of 16, based on hospital standards is considered non-anion gap as it is not greater than 16. 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 DDx: Although anion gap this can make be considered normal, they can also be considered as a elevated anion gap thus salicylate intoxication cannot be ruled out versus versus alcohol intoxication less likely given no crystals noted on UA and alcohol within normal limits. RTA type I. Plan: Treat underlying condition, fluid resuscitation and oral hydration #NATALIE, resolved #Rhabdomyolysis, Resolved. #Mild Elevated transaminitis, Resolved Health Maintenance: Disp: Pt is currently admitted to floors for further management of acute metabolic encephalopathy, FOBT FEN: Dysphagia 3 diet GI: NONE, trying to avoid QT prolongation, if FOBT positive add Protonix DVT: compression device, ambulatory, holding sub q heparin for single espisode of melena reported Code: Full code - The patient's plan was discussed with attending Dr Keller and senior residents Dr. Abdiel Gan MD PGY1 Internal Medicine Attending Provider Attestation/Addendum I have examined the patient, reviewed labs and imaging findings, discussed the case with the resident(s), and reviewed entered orders. I agree with the plan of care as outlined in this note, with these additional summaries/recommendations: Pending FOBT to rule out GI bleed. If negative we will consult crisis. Hemoglobin stable at 12.7. Patient denies any suicidal ideations at this time. Continue antibiotic for aspiration pneumonia. We will resume gabapentin and sertraline on discharge. Dr. Keller
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
--- NOTE | 2024-04-23 19:26 | PD.VPROG1 ---
Telemedicine visit statement This visit was conducted with the use of phone was obtained on 04/23/24 at 1926. Documentation for date of: 04/23/24 Subjective Subjective Interval history: Patient was in telemetry today, mental status is back to baseline. No sz reported from admission Virtual exam Vital Signs Temp Pulse Resp BP Pulse Ox O2 Del Method O2 Flow Rate 97.7 F 82 16 125/90 H 96 Room Air 5 04/23/24 16:00 04/23/24 16:00 04/23/24 16:00 04/23/24 16:00 04/23/24 16:00 04/23/24 16:00 04/22/24 04:10 Objective Labs 04/22/24 04:45 04/22/24 04:45 ABG Interpretation ABG results: 04/18/24 17:52 ABG pH 7.29 L ABG pCO2 37 ABG pO2 134 H ABG HCO3 18 L ABG O2 Saturation 100 H ABG Base Excess -8 L Assessment & Plan Assessment 1) Altered mental status: resolved. back to baseline cleared neurologically continue Gabapentin 300 mg tid, Sertraline 50 mg daily. EEG: negative for epileptiform discharges. (2) Suicide attempt: Status: Acute Assessment and plan: needs crisis evaluation to prevent recurrence (3) Aspiration Pneumonia: Status: Acute Assessment and plan: being treated with antibiotics.
[2024-04-23] MEDS: SERTRALINE HCL 25 MG TABLET 50 MG PO (20:27)
[2024-04-23] MEDS: MG HYD/AL HYD/SIME (Maalox Reg) SUSP 30 ML UDC PO (22:39)
[2024-04-23] MEDS: hydrOXYzine HCL 25 MG TABLET PO (22:41)
[2024-04-24] VITALS (10 sets, daily range): BP systolic 113–124; BP diastolic 61–91; PULSE 48–83; RESP 16–98; TEMP 36.1–36.5; O2SAT 95–96
--- NOTE | 2024-04-24 01:30 | PC.NURSE ---
patient c/o nausea, ABD bloating, next dose of zofran not due in about [address] Gonsalves regarding patient's concern and per MD will put in orders.
[2024-04-24] MEDS: PROMETHAZINE INJ 12.5 MG in SODIUM CHLORIDE 0.9% 50 ML 2.5 MG IV ×2 (01:56→21:03)
[2024-04-24] MEDS: ONDANSETRON INJ 2 MG/ML INJ 2 ML 4 MG IV ×3 (03:30→15:42)
--- NOTE | 2024-04-24 04:02 | PC.NURSE ---
called Dr. Ramirez regarding patient c/o nausea, abdominal bloating, feeling sick. Patient states started on Sunday when he was started on antibiotics. Bowel sounds are active in all four quadrants, no pain on palpation, patient states zofran does give him relief but when medication wears off, feels nauseated again. No new orders received at this time.
[2024-04-24] MEDS: GABAPENTIN 300 MG CAPSULE PO ×3 (05:57→21:04)
[2024-04-24] MEDS: metroNIDAZOLE/NS 500 MG IVPB 500 MG/100 ML BAG 200 MG IV (05:57)
[2024-04-24 06:05] LABS: Basophils # (Auto) 0.1 Thou/mm3 (0.0-0.2); Basophils % (Auto) 1 % (0-2.5); Eosinophils # (Auto) 0.1 Thou/mm3 (0.0-0.5); Eosinophils % (Auto) 2 % (0-10); Hematocrit 39.2 % (41.0-53.0); Hemoglobin 13.8 g/dL (13.5-16.0); Immature Granulocytes % (Auto) 2 % (0-0); Immature Granulocytes Auto 0.14 Thou/mm3 (0.00-0.00); Lymphocytes # (Auto) 1.5 Thou/mm3 (1.0-4.8); Lymphocytes % (Auto) 20 % (10-50); Mean Corpuscular HGB Conc 35.2 g/dl (31.0-37.0); Mean Corpuscular Hemoglobin 30.1 pg (25.0-35.0); Mean Corpuscular Volume 85 fL (80-100); Monocytes # (Auto) 0.8 Thou/mm3 (0.0-0.8); Monocytes % (Auto) 11 % (0-12); Neutrophils # (Auto) 4.7 Thou/mm3 (1.8-7.7); Neutrophils % (Auto) 64 % (37-80); Nucleated Red Blood Cell % 0 /100 WBC (0); Platelet Count 192 Thou/mm3 (140-440); RDW Standard Deviation 41.3 fL (35.1-43.9); Red Blood Count 4.59 Miln/mm3 (4.50-5.90); White Blood Count 7.4 Thou/mm3 (3.8-10.6)
[2024-04-24 06:26] LABS: Alanine Aminotransferase 21 U/L (10-49); Albumin, Serum 4.1 gm/dL (3.5-5.0); Albumin/Globulin Ratio 1.6 (1.2-2.2); Alkaline Phosphatase 57 U/L (46-116); Anion Gap 7 (7-16); Aspartate Amino Transferase 13 U/L (0-34); BUN/Creatinine Ratio 16 Ratio (12-20); Bilirubin,Total 0.5 mg/dL (0.3-1.2); Blood Urea Nitrogen 13 mg/dL (9-23); Calcium 9.4 mg/dL (8.3-10.6); Calcium (Corrected) 9.4 mg/dL (8.5-10.1); Carbon Dioxide 27.8 mMol/L (20.0-31.0); Chloride 107 mMol/L (98-107); Creatinine (Component) 0.8 mg/dL (0.6-1.3); Globulin 2.6 gm/dL (2.3-3.5); Glucose 96 mg/dL (74-106); Osmolality,Calculated 283 (275-295); Phosphorous 3.4 mg/dL (2.4-5.1); Potassium 4.1 mMol/L (3.4-5.1); Sodium 142 mMol/L (136-145); Total Protein 6.7 gm/dL (5.7-8.2); eGFR > 60 See Note
[2024-04-24] MEDS: cefTRIAXone/D5w 1gm IV premix 50 ML IV (10:09)
--- NOTE | 2024-04-24 11:29 | PD.RESPRO ---
Documentation for date of: 04/24/24 Subjective Subjective Interval history: No overnight events reported for patient. Patient denied any chest pain or dyspnea. Patient denied fevers or chills. Patient denied melena or hematochezia this morning. FOBT canceled. Hemoglobin and Hematocrict showed improvement. Bowel movement appears green. Improved acute metabolic encephalopathy, alert and oriented X3. Exam Vital Signs Temp Pulse Resp BP Pulse Ox O2 Del Method O2 Flow Rate 97.2 F 67 19 113/72 95 Room Air 5 04/24/24 08:00 04/24/24 09:55 04/24/24 09:55 04/24/24 08:00 04/24/24 08:00 04/24/24 08:00 04/22/24 04:10 Narrative Exam General Appearance: Alert & Oriented X3, well-nourished who is lying in bed in no acute distress HEENT: Skull symmetrical and atraumatic. Conjunctivae pink and moist. Pupils equal, round, reactive to light and accommodation (PERRL). External ear without lesion or discharge. Straight, nares patient, mucosa pink, no discharge. No thyroid nodule appreciated. No cervical lymphadenopathy. Cardio: Normal Rate and Rhythm with S1 and S2 heart sounds. No murmurs or extra heart sounds auscultated. No bruits on carotid auscultation. No peripheral edema or cyanosis. Lungs: Symmetric with good expansion. Chest and back non-tender. Breath sounds vesicular without crackles, wheezing or rhonchi Abdomen: Non-tender, Non-distended, Normal Reactive Bowel Sounds Neuro: Alert, cooperative, oriented to person, place, and time. Speech clear. CN grossly intact. Upper motor strength 5/5 and Lower motor strength 5/5. Sensation intact. Objective Labs 04/25/24 05:07 04/25/24 05:07 Labs: Laboratory Results - last 24 hr 04/24/24 05:37 WBC 7.4 RBC 4.59 Hgb 13.8 Hct 39.2 L MCV 85 MCH 30.1 MCHC 35.2 RDW Std Deviation 41.3 Plt Count 192 Neut % (Auto) 64 Lymph % (Auto) 20 [place] % (Auto) 11 Eos % (Auto) 2 Baso % (Auto) 1 Neut # (Auto) 4.7 Lymph # (Auto) 1.5 [place] # (Auto) 0.8 Eos # (Auto) 0.1 Baso # (Auto) 0.1 Immature Gran # (Auto) 0.14 H Absolute Nucleated RBC 0.00 Immature Gran % 2 H Nucleated RBC % 0 Sodium 142 Potassium 4.1 D Chloride 107 Carbon Dioxide 27.8 Anion Gap 7 BUN 13 Creatinine 0.8 Estim Creat Clear Calc 125.0 eGFR > 60 BUN/Creatinine Ratio 16 Glucose 96 Calculated Osmolality 283 Calcium 9.4 Corrected Calcium 9.4 Phosphorus 3.4 Magnesium 2.0 Total Bilirubin 0.5 AST 13 ALT 21 Alkaline Phosphatase 57 Total Protein 6.7 Albumin 4.1 Globulin 2.6 Albumin/Globulin Ratio 1.6 ABG Interpretation ABG results: 04/18/24 17:52 ABG pH 7.29 L ABG pCO2 37 ABG pO2 134 H ABG HCO3 18 L ABG O2 Saturation 100 H ABG Base Excess -8 L Quality Measures Quality Measures VTE prophylaxis (Heparin SC ) Assessment & Plan Assessment Current Active Medications: Generic Name Dose Route Start Last Admin Trade Name Freq PRN Reason Stop Dose Admin Acetaminophen 650 mg 04/21/24 19:37 04/23/24 20:27 Acetaminophen 325 Mg Tablet PO 05/21/24 19:36 650 mg Q6HR PRN Administration Fever >100.3 or pain Dextrose 25 ml 04/18/24 18:24 Dextrose 50%-Water Inj 50 Ml Syringe IV 05/18/24 18:23 Q15MIN PRN BG 50-70 responsive npo pt Dextrose 50 ml 04/18/24 18:24 Dextrose 50%-Water Inj 50 Ml Syringe IV 05/18/24 18:23 Q15MIN PRN BG <50 OR BG <70 & pt unresponsive Gabapentin 300 mg 04/23/24 14:00 04/24/24 05:57 Gabapentin 300 Mg Capsule PO 05/23/24 13:59 300 mg TID GEOVANY Administration Glucagon 1 mg 04/18/24 18:24 Glucagon Inj 1 Mg Vial IM Q15MIN PRN BG <70, and no IV access Heparin Sodium (Porcine) 5,000 unit 04/18/24 21:00 04/23/24 08:12 Heparin Sod Inj 5000 Unit/Ml Vial SC 05/02/24 20:59 5,000 unit BID GEOVANY Administration Hydroxyzine HCl 25 mg 04/21/24 10:54 04/23/24 22:41 Hydroxyzine Hcl 25 Mg Tablet PO 05/21/24 13:59 25 mg TID PRN Administration ANXIETY Ondansetron HCl 4 mg 04/22/24 15:55 04/24/24 10:09 Ondansetron Inj 2 Mg/Ml Inj 2 Ml IV 05/22/24 15:54 4 mg Q6HR PRN Administration NAUSEA OR VOMITING Protocol Pharmacy Consult 1 each 04/18/24 18:23 Pharmacy Renal Dose Adjustment 1 Ea XX 05/18/24 18:22 PRN PRN CONSULT Phenol/Menthol 1 ml 04/22/24 18:08 04/22/24 21:17 Phenol/Na Phenolate (Chloraseptic) [place] 180 Ml Btl PO 05/22/24 17:59 1 ml Q6HR PRN Administration SORE THROAT Polyethylene Glycol 17 gm 04/21/24 09:00 04/24/24 09:59 Polyethylene Glycol 17 Gm Packet PO 05/21/24 08:59 Not Given QDAY GEOVANY Sennosides 1 tab 04/20/24 10:25 Senna Tablet PO 05/20/24 10:24 QDAY PRN CONSTIPATION Protocol Sertraline HCl 50 mg 04/23/24 21:00 04/23/24 20:27 Sertraline Hcl 25 Mg Tablet PO 05/23/24 20:59 50 mg HS GEOVANY Administration Plan Patient is 39-year-old male with a past medical history of generalized anxiety disorder and history of suicide attempts with psychic medication who was admitted on 04/18/2024 for acute metabolic encephalopathy secondary to polypharmacy overdose, possible SI attempt. #Acute Metabolic Encephalopathy secondary to psychic medication, resolved. #Intentional Overdose #Possible SI Attempt #history of Seizures Patient has a history of suicidal attempts and recently lost his job, given QT of 491 overdose cannot be ruled out. Please add a one-to-one sitter. Patient consumed sertraline (entire bottle), gabapentin, trazodone, lorazepam. Please monitor for serotonin syndrome and benzos overdose. Please do not initiate lorazepam in an adult given possibility of seizures. EEG results ruled out seizure, showing abnormal readings for encephalopathy likely toxic or metabolic likely secondary to overdose. Crisis prevention to evaluate tomorrow DDx: Less likely secondary to head trauma as CT head was negative versus alcohol intoxication less likely as alcohol levels will Plan -Resume gabapentin 300 TID and Sertraline 50 mg HS -Lorazepam for breakthrough seizures only, use w/ caution -Seizure precautions -Neurochecks every 4 hours -Poison control contacted -Crisis prevention, social services technician -Neurology consulted, appreciate recommendations Dr. Toro #Aspiration Pneumonia, resolved #Leukocytosis, resolved Given patient was found unconscious, aspiration pneumonia likely as well as emesis noted by patient's father. Chest x-ray showing suspicion for early left pneumonia. Viral pneumonia cannot be ruled out. DDx: Less likely secondary to CHF exacerbation as there is no cardiac history and enlarged heart on Cx vs KS, less likely as there is no ST elevation COVID and flu Negative. Blood culture Negative. Patient is currently on 4 L NC saturating well. Plan -Ceftriaxone 1 gm Qday 04/21/2024-04/24/2024 -Cefepime 1 gm Q 12 hours (renally dose) stopped on 04/18/2024-04/20/2024 -Metronidazole 500 mg Q8 Hours (no renal dosing) 04/18/2024-04/24/2024 -Pharmacy to dose #Generalized Anxiety Disorder Hold all medication given intoxication. Plan -Sertraline 25 mg HS -Gabpapentin 300 TID -Hydroxyzine 25 mg TID PRN #History of Seizures, stable Plan Ativan 2 mg every 10-15 min upto 4 times for breakthrough seizures. #Normocytic Anemia , resolved. #Upper GI Bleed, ruled out. Melena and hematochezia ruled out, none noted with bowel movements. Bowel movements appear green and no [place] blood noted. Hgb and Hct have remained stable. Plan -Monitor Hgb & Hct -compression device #Non anion gap, metabolic acidosis, resolved. #NATALIE, resolved #Rhabdomyolysis, Resolved. #Mild Transaminitis, Resolved Health Maintenance: Disp: Pt is currently admitted to floors for further management of acute metabolic encephalopathy, resolved, pending discharge FEN: Dysphagia 3 diet, may advance as needed GI: NONE DVT: compression device, ambulatory Code: Full code - The patient's plan was discussed with attending Dr Keller and senior residents Dr. Abdiel Gan MD PGY1 Internal Medicine Senior Resident Attestation: I discussed with and supervised the internet assessor physician involved in the care of this patient. I personally saw and examined the patient and discussed the assessment and plan with the entire medicine team, including my attending. I agree with the assessment and plan as documented above. [ Patient seen and examined bedside. Patient is back at baseline. Pending crisis evaluation. Expect patient to be placed on a hold and likely sent to a psychiatric center. Continue current management as above. ] - Patient's care was discussed with my attending physician. Adam Ross MD Internal Medicine PGY-3 Attending Provider Attestation/Addendum I have examined the patient, reviewed labs and imaging findings, discussed the case with the resident(s), and reviewed entered orders. I agree with the plan of care as outlined in this note, with these additional summaries/recommendations: Patient seen at bedside. No acute overnight events. Patient's hemoglobin has trended up for the last 48 hours and now within normal range. Discontinue FOBT. Patient still endorses some nausea that responds well to Zofran. Case management notified that patient is medically cleared for crisis evaluation. Patient was evaluated by crisis and placed on hold pending transfer to psychiatric facility given that this is patient's second intentional overdose. Dr. Keller
--- NOTE | 2024-04-24 13:08 | PC.SS ---
ASW was informed by attending Dr. Keller and medical team that the patient had been medically cleared for evaluation. After clinical consultation with Director of Care Integration/APPEALS ANALYST-Ladonna Mcrae it is determined that the patient meets criteria for a 5150 hold for danger to self. Patient was informed of reason for decision being made and verbal advisement was completed with the patient. Patient verbalized understanding and was explained the process of being placed on a 5150 hold, pending psychiatrist placement at an [facility] facility. Patient declined any family/friends to be contacted. Attending Dr. Keller and bed side nurse Kami made aware and notified of disposition plan.
[2024-04-24] MEDS: ACETAMINOPHEN 325 MG TABLET 650 MG PO ×2 (13:36→21:08)
--- NOTE | 2024-04-24 13:52 | PC.SS ---
ASW was informed by attending Dr. Keller and medical team that the patient had been medically cleared for evaluation. After clinical consultation with Director of Care Integration/MOLDER TRIMMER-Ladonna Mcrae it is determined that the patient meets criteria for a 5150 hold for danger to self due to recent events and lack of viable safety plan. ASW met at bed side with the patient to notify of decision made and placement of 5150. Patient was informed of reason for decision being made and verbal advisement was completed with the patient. Informed the patient no viable safety plan was established due to his parents declining to safety plan with patient and denying the patient to return to their home. Patient was also informed how a safety plan with his friend Reena was not viable safety plan as the patient has minimal contact with her and she is not involved with his daily support network, as patient's friend mentioned no contact had been established with the patient as of . The patient was also explained how his behaviors have created concern for patient being a danger to self, additionally not coming forward or being honest with what occurred and what led him to the hospital with excessive medication being taken. Patient has also not expressed or shared any emotion of being happy to be alive. Patient has also demonstrated lack or poor follow through with outpatient mental health services. Patient became upset and informed he did not agree with this. The patient was explained the process of being placed on a 5150 hold, currently pending psychiatrist placement at an LPS facility and furthermore explained what could occur if no placement is established, following a re-evaluation if necessary. Patient verbalized understanding. At this time, the patient declined any family/friends to be contacted. Attending Dr. Keller and bed side nurse Kami made aware and notified of disposition plan. ASW sent of packet to designated LPS facilities. Pending placement.
--- NOTE | 2024-04-24 16:36 | PC.SS ---
ASW contacted following LPS facilities: [facility]- was informed no beds available at this time [facility]- was informed by staff packet was received and has yet to be reviewed by staff [facility]-Referral inque [facility]- informed they have open male bed, referral faxed hardcopy per their request [facility]-have open beds, informed they would review the packet [facility]: faxed hard copy per their request to review [facility]: left voicemail for them [facility]: informed they are at full capacity
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
--- NOTE | 2024-04-24 18:42 | PC.CC ---
Alia DOSHI made [id number] contact with patient. ASW introduced self, role, and reason for visit. Patient appeared alert and oriented to self, location, and situation. ASW provided patient with Patient Rights Advocate phone number . Patient stated he has an emergency hearing that his film recordist had filed for tomorrow. ASW informed patient that social media specialist had not received notice of hearing and if there is an accepting facility he would be made aware and transportation would be arranged. Contact was made with Josh Rhodes, Map Clerk who reports there is no emergency hearing set that he is aware of for any patient's at [facility].
[2024-04-24] MEDS: SERTRALINE HCL 25 MG TABLET 50 MG PO (21:03)
[2024-04-24] MEDS: LIDOCAINE 5% 1 PATCH TOP (23:18)
[2024-04-25] VITALS (10 sets, daily range): BP systolic 90–127; BP diastolic 59–86; PULSE 70–93; RESP 16–94; TEMP 36.2–36.6; O2SAT 93–95; BMI 28.6; BMI 28.1
--- NOTE | 2024-04-25 02:15 | PC.NURSE ---
senior technical support engineer called regarding patient's HR down to 48 but did not sustain, HR now is 71 SR. Patient is in bed resting comfortably, is asymptomatic, Called Dr. Gonsalves regarding this, no new orders received.
[2024-04-25] MEDS: ONDANSETRON INJ 2 MG/ML INJ 2 ML 4 MG IV (03:22)
[2024-04-25] MEDS: ACETAMINOPHEN 325 MG TABLET 650 MG PO (03:25)
[2024-04-25 05:56] LABS: Basophils % (Auto) 1 % (0-2.5); Eosinophils # (Auto) 0.2 Thou/mm3 (0.0-0.5); Eosinophils % (Auto) 3 % (0-10); Hematocrit 39.9 % (41.0-53.0); Hemoglobin 13.7 g/dL (13.5-16.0); Immature Granulocytes % (Auto) 2 % (0-0); Immature Granulocytes Auto 0.15 Thou/mm3 (0.00-0.00); Lymphocytes # (Auto) 1.8 Thou/mm3 (1.0-4.8); Lymphocytes % (Auto) 27 % (10-50); Mean Corpuscular HGB Conc 34.3 g/dl (31.0-37.0); Mean Corpuscular Hemoglobin 29.4 pg (25.0-35.0); Mean Corpuscular Volume 86 fL (80-100); Monocytes # (Auto) 0.8 Thou/mm3 (0.0-0.8); Monocytes % (Auto) 12 % (0-12); Neutrophils # (Auto) 3.6 Thou/mm3 (1.8-7.7); Neutrophils % (Auto) 55 % (37-80); Nucleated Red Blood Cell % 0 /100 WBC (0); Platelet Count 182 Thou/mm3 (140-440); RDW Standard Deviation 40.6 fL (35.1-43.9); Red Blood Count 4.66 Miln/mm3 (4.50-5.90); White Blood Count 6.6 Thou/mm3 (3.8-10.6)
[2024-04-25 06:34] LABS: Alanine Aminotransferase 29 U/L (10-49); Albumin/Globulin Ratio 1.6 (1.2-2.2); Alkaline Phosphatase 56 U/L (46-116); Anion Gap 9 (7-16); Aspartate Amino Transferase 37 U/L (0-34); BUN/Creatinine Ratio 20 Ratio (12-20); Bilirubin,Total 0.5 mg/dL (0.3-1.2); Blood Urea Nitrogen 16 mg/dL (9-23); Calcium 9.1 mg/dL (8.3-10.6); Calcium (Corrected) 9.1 mg/dL (8.5-10.1); Carbon Dioxide 26.1 mMol/L (20.0-31.0); Chloride 106 mMol/L (98-107); Creatinine (Component) 0.8 mg/dL (0.6-1.3); Globulin 2.5 gm/dL (2.3-3.5); Glucose 93 mg/dL (74-106); Magnesium 1.9 mg/dL (1.6-2.6); Osmolality,Calculated 282 (275-295); Phosphorous 3.1 mg/dL (2.4-5.1); Potassium 3.8 mMol/L (3.4-5.1); Sodium 141 mMol/L (136-145); Total Protein 6.5 gm/dL (5.7-8.2); eGFR > 60 See Note
[2024-04-25] MEDS: GABAPENTIN 300 MG CAPSULE PO ×3 (06:47→21:27)
--- NOTE | 2024-04-25 07:54 | PD.NEUROPROG ---
Documentation for date of: 04/24/24 Subjective Subjective Interval history: Patient was seen in [facility] today at the bedside. He has been more awake, alert, upset about not being able to be discharged as discussed. No seizures reported after admission Exam - Neurology Vital Signs Temp Pulse Resp BP Pulse Ox O2 Del Method O2 Flow Rate 97.2 F 73 18 90/59 L 95 Room Air 5 04/25/24 04:00 04/25/24 04:41 04/25/24 04:00 04/25/24 04:00 04/25/24 04:00 04/25/24 04:00 04/22/24 04:10 Narrative Exam GENERAL APPEARANCE: Well hydrated, well-nourished in no acute distress. HEENT: Normocephalic, atraumatic, extraocular movements intact. Pupils: Equal reacting to light and accommodation NECK: Supple, no JVD or bruits. CARDIOVASULAR: Heart: S1, S2 heard, regular without S3-S4 or murmur no rubs or gallops. LUNGS/CHEST: Clear to auscultation bilaterally. No rails, rhonchi, or wheezing. Normal inspection. ABDOMEN: Soft, nontender, with normal bowel sounds. No pulsatile masses. No rebound, rigidity, or guarding. Normal inspection and palpation. EXTREMITIES: Normal inspection and palpation. No edema, clubbing or cyanosis. SKIN: Warm and dry without rashes. Normal inspection. MUSCULOSKELETAL: No cervical, thoracic, lumbar or midline bony tenderness. Normal inspection. NEURO: Alert, awake and oriented x3. Cranial nerves: II through XII grossly intact. Speech and language: Normal with no dysarthria or dysphasia. Motor system: Tone and bulk: Normal: Strength: 5 out of 5 in all 4 extremities; No pronator drift noted. Deep tendon reflexes: 2+ bilaterally symmetrical. Plantar reflex: Downgoing bilaterally. Sensory system: Intact to all modalities of sensation bilaterally. Coordination: Intact to [id number] and numj-qvna-gfpe test bilaterally. No ataxia, no dysmetria, or dysdiadochokinesia noted. No intention tremors noted. Gait: Normal. Toe, heel, tandem walk all are normal. Romberg: Negative. No signs of meningeal irritation noted. PSYCHIATRIC: Normal mood and affect. Denies homicidal or suicidal ideation. Objective Labs 04/25/24 05:07 04/25/24 05:07 Labs: Laboratory Results - last 24 hr 04/25/24 05:07 WBC 6.6 RBC 4.66 Hgb 13.7 Hct 39.9 L MCV 86 MCH 29.4 MCHC 34.3 RDW Std Deviation 40.6 Plt Count 182 Neut % (Auto) 55 Lymph % (Auto) 27 [place] % (Auto) 12 Eos % (Auto) 3 Baso % (Auto) 1 Neut # (Auto) 3.6 Lymph # (Auto) 1.8 [place] # (Auto) 0.8 Eos # (Auto) 0.2 Baso # (Auto) 0.0 Immature Gran # (Auto) 0.15 H Absolute Nucleated RBC 0.00 Immature Gran % 2 H Nucleated RBC % 0 Sodium 141 Potassium 3.8 Chloride 106 Carbon Dioxide 26.1 Anion Gap 9 BUN 16 Creatinine 0.8 Estim Creat Clear Calc 125.0 eGFR > 60 BUN/Creatinine Ratio 20 Glucose 93 Calculated Osmolality 282 Calcium 9.1 Corrected Calcium 9.1 Phosphorus 3.1 Magnesium 1.9 Total Bilirubin 0.5 AST 37 H ALT 29 Alkaline Phosphatase 56 Total Protein 6.5 Albumin 4.0 Globulin 2.5 Albumin/Globulin Ratio 1.6 ABG Interpretation ABG results: 04/18/24 17:52 ABG pH 7.29 L ABG pCO2 37 ABG pO2 134 H ABG HCO3 18 L ABG O2 Saturation 100 H ABG Base Excess -8 L Assessment & Plan Assessment and plan (1) Altered mental status: Status: Acute Assessment and plan: resolved. back to baseline cleared neurologically ok to resume Gabapentin 300 mg tid, Sertraline 50 mg daily. (2) Suicide attempt: Status: Acute Assessment and plan: needs crisis evaluation to prevent recurrence (3) Pneumonia: Status: Acute Assessment and plan: treated with antibiotics.
[2024-04-25] MEDS: POTASSIUM CHLORIDE 20 mEq TABCR PO (08:19)
[2024-04-25] MEDS: Magnesium Sulfate 2 GM Ivpb 2 GM/50 ML BAG IV (08:19)
--- NOTE | 2024-04-25 08:22 | PC.CC ---
Alia DOSHI resubmitted referral via [facility] to [facility] and would make contact back with ASW if they are able to [facility]. [facility] and would contact ASW if accepting information if they are able to accept patient.
--- NOTE | 2024-04-25 08:54 | PC.CM ---
Late Entry for 04/24/241817Karin Rojo updated the patient on the placement status and also provided the patient with the patient's advocate number. Alia was made aware that an emergency hearing was scheduled for 04/25/24. SURVEY RESEARCHER [facility]- at this time there is no hearing scheduled or request for a hearing.
--- NOTE | 2024-04-25 09:28 | PC.SS ---
ASW contacted following [facility] facilities: [facility]-Referral faxed hard copy per their request [phone] [facility]- at capacity [facility]-have open beds, referral is inque [facility]: left voicemail [facility]: No beds available [facility]- Faxed had copy as they are not on [facility] [phone] [facility]- have open beds, requested packet to be faxed to [phone]
--- NOTE | 2024-04-25 10:43 | ESDS_ITS ---
Planned Discharge Date 04/25/24 DS: Providers Provider Date of admission: 04/18/24 18:13 Primary care physician: King Faustin MD Admitting Provider: Poncho Winn MD Attending Provider on Admission: Bret Keller MD Consults: 04/18/24 17:51 Consult to Neurology / Tele-Neurology Stat Comment: Consulting Provider: Prem Toro 04/18/24 17:54 Referral Psych Eval Stat Comment: 04/20/24 07:29 Referral Speech Therapy Routine Comment: 04/21/24 10:12 Referral Physical Therapy Routine Comment: Physician Instructions: Attending Provider on DC: Sejal Gan MD Discharging Provider: Sejal Gan MD DS: Diagnosis Problem List Completed Was Problem List Reviewed/Reconciled?: Yes Hospital Course Hospital Course Hospital course: Summary: Patient is a 31-year-old male with a past medical history of generalized anxiety disorder, possible depression, previous suicidal attempt about 10 years ago who was admitted on 04/18/2024 at [facility] in [place]. Chief complaint of acute metabolic encephalopathy, found secondary to medication overdose from consuming entire bottle of gabapentin, entire bottle of trazodone, entire bottle on sertraline, an entire bottle of lorazepam. Patient is ready to be discharged on 04/25/2024 and is medically cleared and has returned back to his baseline. ER Course: Patient's vital in the ER, showed hypotension of 176/58 with tachycardia, heart rate of 105 oxygen saturation 94 on 2 L nasal cannula found to be altered and responsive only to sternal rubs. Elevated leukocytes with a neutrophil shift of 90 high. ABG, showed acidosis likely metabolic given low bicarb. Serum bicarb 19.3. NATALIE noted with a BUN of 29 creatinine 4, creatinine clearance 24.7, BU N/creatinine ratio 7. Lactic acid 1.8. Total creatinine kinase 1119. Procalcitonin elevated 5.4 chest x-ray showing early pneumonia. EKG showing QT corrected at 491 (cautions with QT prolongation). Head CT negative. Hospitalization: In the hospital, patient was added to one-to-one sitter given acute metabolic encephalopathy secondary to psych medication overdose and suicidal attempt. Admitted to psych medication initially held and resumed on 04/23/2024 after patient's acute metabolic encephalopathy, resolved. Currently started on sertraline 25-->50 mg at bedtime and gabapentin 300 3 times daily for his generalized anxiety disorder. Patient completed course of antibiotics for aspiration pneumonia and leukocytosis resolved. Patient has a history of seizure, Ativan 2 mg added as needed, but has not required any medication. Normocytic anemia resolved and upper GI bleed ruled out as hemoglobin hematocrit are within normal limits. Patient's metabolic acidosis, nonanion gap resolved. NATALIE resolved. Patient A1c presented with rhabdomyolysis started on normal saline maintenance and later DC'd once CK levels improved. Mild transaminitis improved. EKG QT 491 was tracked and improved to 264. Patient is currently cleared medically and pending psychiatric evaluation with a possible transfer to [facility]. Instructions: Continue Gabapentin 300 mg oral TID Sertraline 50 mg oral once a night Stop all other psychiatry medication until you follow up with your psychiatrist for further evaluation. -Please follow up with your primary care provider within one week of discharge -If your symptoms worsen,please seek immediate medical attention and return to your nearest emergency room -If you do not have a primary care provider, you may follow up at the [facility] at [address] [place] [address] [address], [place] [address], Disposition: possible transfer to psychiatry facility Diagnosis: #Acute Metabolic Encephalopathy secondary to psychic medication, resolved. #Intentional Overdose #Possible SI Attempt #history of Seizures, stable #Aspiration Pneumonia, resolved #Leukocytosis, resolved #Generalized Anxiety Disorder #History of Seizures, stable #Normocytic Anemia , resolved. #Upper GI Bleed, ruled out. #Non anion gap, metabolic acidosis, resolved. #NATALIE, resolved #Rhabdomyolysis, Resolved. #Mild Transaminitis, Resolved - The patient's plan was discussed with attending Dr. Keller and senior residents Dr. Ariane Gan MD PGY1 Internal Medicine Time Spent with Patient Time attestation: Total time spent providing and/or coordinating discharge services: at least 35 minutes of care and coordination Exam Vital Signs Temp Pulse Resp BP Pulse Ox O2 Del Method O2 Flow Rate 97.1 F 93 18 127/80 94 L Room Air 5 04/25/24 08:00 04/25/24 10:18 04/25/24 10:18 04/25/24 08:00 04/25/24 08:00 04/25/24 08:00 04/22/24 04:10 Narrative Exam General Appearance: Alert & Oriented X3, well-nourished male who is lying in bed in no acute distress HEENT: Skull symmetrical and atraumatic. Conjunctivae pin and moist. Pupils equal, round, reactive to light and accommodation (PERRL). External ear without lesion or discharge. Straight, nares patient, mucosa pink, no discharge. No thyroid nodule appreciated. Cardio: Normal Rate and Rhythm with S1 and S2 heart sounds. No murmurs or extra heart sounds auscultated. No bruits on carotid auscultation. No peripheral edema or cyanosis. Lungs: Symmetric with good expansion. Chest and back non-tender. Breath sounds vesicular without crackles, wheezing or rhonchi Abdomen: Non-tender, Non-distended, Normal Reactive Bowel Sounds Neuro: Alert, cooperative, oriented to person, place, and time. Speech clear. CN grossly intact. Upper motor strength 5/5 and Lower motor strength 5/5. Sensation intact. Discharge Plan Plan Patient Disposition: [facility] Care Plan Goals: Instructions: Continue Gabapentin 300 mg oral TID Sertraline 50 mg oral once a night Stop all other psychiatry medication until you follow up with your psychiatrist for further evaluation. -Please follow up with your primary care provider within one week of discharge -If your symptoms worsen,please seek immediate medical attention and return to your nearest emergency room -If you do not have a primary care provider, you [facility] follow [facility], [place] [address], Disposition: possible transfer to psychiatry facility Prescriptions/Referrals Prescriptions/Med Rec: New gabapentin 300 mg capsule 300 mg PO TID 30 Days Qty: 90 0RF sertraline 50 mg tablet 50 mg PO HS 30 Days Qty: 30 0RF Discontinued sertraline [Zoloft] 100 mg Tablet 100 mg PO QDAY Hold Instructions: Resume on 04/21/24. Hold until you see your PCP trazodone 300 mg tablet 300 mg PO HSPRN PRN (Reason: Insomnia) Hold Instructions: Resume on 04/21/24. Hold until you see your PCP Patient Comments: TAKE 1 TABLET BY MOUTH EVERY DAY AT BEDTIME NEEDED gabapentin 300 mg capsule 600 mg PO 3XD Hold Instructions: Resume on 04/21/24. Hold until you see your PCP Patient Comments: TAKE 2 CAPSULES BY MOUTH 3 TIMES A DAY Referrals: King Faustin([facility]MD [Primary Care Provider] - Patient/Caregiver Discharge Instructions Print Language: Dutch Stand Alone Forms: Catherine Award Info., Patient Portal Info Letter Discharge Order Discharge Orders: Discharge (Routine); Ordered 04/25/24 Ordered By: Terrance Meadows Quality Discharge Quality Measures VTE prophylaxis MD Attestestation MD Attestation I have examined the patient, reviewed labs and imaging findings, discussed the case with the resident(s), and reviewed entered orders. I agree with the plan of care as outlined in this note. Dr. Keller
--- NOTE | 2024-04-25 11:11 | PC.CC ---
Alia DOSHI received acceptance information from Cortney with [facility]. Accepting Dr. Hartmann, patient will be going to the [facility]. Transportation has been arranged with [facility] for eta p/u 1500 arrival for 1600. Alia DOSHI made [id number] contact with patient. ASW introduced self, role, and reason for visit. Patient appeared alert and oriented to self, location, and situation. Patient was provided with accepting information to [facility] and was receptive to information. Patient reported he did not want ASW to inform his family of where he was going to be transferred to.
--- NOTE | 2024-04-25 14:45 | PC.SS ---
Addendum entered by LYNNE Tang 04/25/24 17:02: [facility] called and requested ETA 1999 and arrival at 2100. [facility] is agreeable. Nursing staff notified. Original Note: SS update: received call from [facility]. Transport moved to 1600. [facility] facility aware and bed side nurse aware.
--- NOTE | 2024-04-25 15:32 | PC.NURSE ---
Report given to [facility] 04/25 @ 1851.
[2024-04-25] MEDS: SERTRALINE HCL 25 MG TABLET 50 MG PO (20:00)
--- NOTE | 2024-04-25 22:54 | VVPN_ITS ---
Telemedicine visit statement This visit was conducted with the use of phone was obtained on 04/25/24 at 2254. Documentation for date of: 04/25/24 Subjective Subjective Interval history: Patient was in telemetry today, mental status is back to baseline. No sz reported from admission Virtual exam Vital Signs Temp Pulse Resp BP Pulse Ox O2 Del Method O2 Flow Rate 97.9 F 85 16 122/78 93 L Room Air 5 04/25/24 20:00 04/25/24 20:00 04/25/24 20:00 04/25/24 20:00 04/25/24 20:00 04/25/24 20:00 04/22/24 04:10 Objective Labs 04/25/24 05:07 04/25/24 05:07 Labs: Laboratory Results - last 24 hr 04/25/24 05:07 WBC 6.6 RBC 4.66 Hgb 13.7 Hct 39.9 L MCV 86 MCH 29.4 MCHC 34.3 RDW Std Deviation 40.6 Plt Count 182 Neut % (Auto) 55 Lymph % (Auto) 27 [place] % (Auto) 12 Eos % (Auto) 3 Baso % (Auto) 1 Neut # (Auto) 3.6 Lymph # (Auto) 1.8 [place] # (Auto) 0.8 Eos # (Auto) 0.2 Baso # (Auto) 0.0 Immature Gran # (Auto) 0.15 H Absolute Nucleated RBC 0.00 Immature Gran % 2 H Nucleated RBC % 0 Sodium 141 Potassium 3.8 Chloride 106 Carbon Dioxide 26.1 Anion Gap 9 BUN 16 Creatinine 0.8 Estim Creat Clear Calc 125.0 eGFR > 60 BUN/Creatinine Ratio 20 Glucose 93 Calculated Osmolality 282 Calcium 9.1 Corrected Calcium 9.1 Phosphorus 3.1 Magnesium 1.9 Total Bilirubin 0.5 AST 37 H ALT 29 Alkaline Phosphatase 56 Total Protein 6.5 Albumin 4.0 Globulin 2.5 Albumin/Globulin Ratio 1.6 ABG Interpretation ABG results: 04/18/24 17:52 ABG pH 7.29 L ABG pCO2 37 ABG pO2 134 H ABG HCO3 18 L ABG O2 Saturation 100 H ABG Base Excess -8 L Assessment & Plan Assessment 1) Altered mental status: resolved. back to baseline cleared neurologically continue Gabapentin 300 mg tid, Sertraline 50 mg daily. EEG: negative for epileptiform discharges. (2) Suicide attempt: needs crisis evaluation to prevent recurrence Patient refused to leave when bed became available. (3) Aspiration Pneumonia: being treated with antibiotics.
--- NOTE | 2024-04-25 23:03 | PC.NURSE ---
2000: Resident Dr. Serna call at bedside, patient reports he is not refusing admission he is refusing late transfer.
--- NOTE | 2024-04-25 23:10 | PC.NURSE ---
2015: Brittany from transport called paperwork will need to be resubmitted.
[2024-04-26] VITALS: BP 106/79; PULSE 68; RESP 16; TEMP 36.3; O2SAT 98
--- NOTE | 2024-04-26 01:03 | PC.NURSE ---
patient refused hall monitor and MD KWABENA made aware.
[2024-04-26 04:00] VITALS: BP 134/75; PULSE 60; RESP 16; TEMP 36.2; O2SAT 97
[2024-04-26 05:12] LABS: Basophils # (Auto) 0.1 Thou/mm3 (0.0-0.2); Basophils % (Auto) 1 % (0-2.5); Eosinophils # (Auto) 0.2 Thou/mm3 (0.0-0.5); Eosinophils % (Auto) 2 % (0-10); Hematocrit 41.5 % (41.0-53.0); Hemoglobin 14.4 g/dL (13.5-16.0); Immature Granulocytes % (Auto) 2 % (0-0); Immature Granulocytes Auto 0.15 Thou/mm3 (0.00-0.00); Lymphocytes # (Auto) 2.1 Thou/mm3 (1.0-4.8); Lymphocytes % (Auto) 25 % (10-50); Mean Corpuscular HGB Conc 34.7 g/dl (31.0-37.0); Mean Corpuscular Hemoglobin 29.6 pg (25.0-35.0); Mean Corpuscular Volume 85 fL (80-100); Monocytes % (Auto) 12 % (0-12); Neutrophils % (Auto) 59 % (37-80); Nucleated Red Blood Cell % 0 /100 WBC (0); Platelet Count 219 Thou/mm3 (140-440); RDW Standard Deviation 40.2 fL (35.1-43.9); Red Blood Count 4.87 Miln/mm3 (4.50-5.90); White Blood Count 8.5 Thou/mm3 (3.8-10.6)
[2024-04-26 05:35] LABS: Alanine Aminotransferase 53 U/L (10-49); Albumin, Serum 4.2 gm/dL (3.5-5.0); Albumin/Globulin Ratio 1.5 (1.2-2.2); Alkaline Phosphatase 59 U/L (46-116); Anion Gap 6 (7-16); Aspartate Amino Transferase 60 U/L (0-34); BUN/Creatinine Ratio 13 Ratio (12-20); Bilirubin,Total 0.6 mg/dL (0.3-1.2); Blood Urea Nitrogen 12 mg/dL (9-23); Carbon Dioxide 25.8 mMol/L (20.0-31.0); Chloride 106 mMol/L (98-107); Creatinine (Component) 0.9 mg/dL (0.6-1.3); Estimated Creatinine Clearance 110.3 mL/min (>60); Globulin 2.8 gm/dL (2.3-3.5); Glucose 90 mg/dL (74-106); Osmolality,Calculated 275 (275-295); Phosphorous 2.9 mg/dL (2.4-5.1); Potassium 4.3 mMol/L (3.4-5.1); Sodium 138 mMol/L (136-145); eGFR > 60 See Note
[2024-04-26 06:00] VITALS: BMI 28.0
[2024-04-26] MEDS: GABAPENTIN 300 MG CAPSULE PO (06:21)
[2024-04-26 08:00] VITALS: BP 141/94; PULSE 89; RESP 18; TEMP 36.2; O2SAT 96
[2024-04-26 09:02] VITALS: PULSE 61; RESP 16; RESP 97
--- NOTE | 2024-04-26 09:36 | PC.CC ---
Ed Tech received telephone call from Tiffany from [facility] in regards to Pt transfer delay. Tiffany requested new arrival time at 1100. Ed Tech completed new transfer request for [facility] and pick-up time was scheduled for 1000. Ed Tech informed nursing staff and Pt of scheduled transfer time. Pt was agreeable with transfer and time. Ed Tech contacted Tiffany in order to receive Nurse to Nurse number [phone]. Attending nurse Jayne was informed of Nurse to Nurse information.
--- NOTE | 2024-04-26 11:13 | PC.CM ---
Per SS notes pt is discharged to [facility]. HH referral is canceled.
--- NOTE | 2024-04-26 13:13 | ESDS_ITS ---
Planned Discharge Date 04/28/24 DS: Providers Provider Date of admission: 04/18/24 18:13 Primary care physician: King Faustin MD Admitting Provider: Poncho Winn MD Attending Provider on Admission: Bret Keller MD Consults: 04/18/24 17:51 Consult to Neurology / Tele-Neurology Stat Comment: Consulting Provider: Prem Toro 04/18/24 17:54 Referral Psych Eval Stat Comment: 04/20/24 07:29 Referral Speech Therapy Routine Comment: 04/21/24 10:12 Referral Physical Therapy Routine Comment: Physician Instructions: Attending Provider on DC: Adam Ross MD Discharging Provider: Adam Ross MD DS: Diagnosis Problem List Completed Was Problem List Reviewed/Reconciled?: Yes Hospital Course Hospital Course Hospital course: Summary: Patient is a 31-year-old male with a past medical history of generalized anxiety disorder, possible depression, previous suicidal attempt about 10 years ago who was admitted on 04/18/2024 at [facility] in [place]. Chief complaint of acute metabolic encephalopathy, found secondary to medication overdose from consuming entire bottle of gabapentin, entire bottle of trazodone, entire bottle on sertraline, an entire bottle of lorazepam. Patient is ready to be discharged on 04/25/2024 and is medically cleared and has returned back to his baseline. ER Course: Patient's vital in the ER, showed hypotension of 176/58 with tachycardia, heart rate of 105 oxygen saturation 94 on 2 L nasal cannula found to be altered and responsive only to sternal rubs. Elevated leukocytes with a neutrophil shift of 90 high. ABG, showed acidosis likely metabolic given low bicarb. Serum bicarb 19.3. NATALIE noted with a BUN of 29 creatinine 4, creatinine clearance 24.7, BUN/creatinine ratio 7. Lactic acid 1.8. Total creatinine kinase 1119. Procalcitonin elevated 5.4 chest x-ray showing early pneumonia. EKG showing QT corrected at 491 (cautions with QT prolongation). Head CT negative. Hospitalization: In the hospital, patient was added to one-to-one sitter given acute metabolic encephalopathy secondary to psych medication overdose and suicidal attempt. Adm itted to psych medication initially held and resumed on 04/23/2024 after patient's acute metabolic encephalopathy, resolved. Currently started on sertraline 25-->50 mg at bedtime and gabapentin 300 3 times daily for his generalized anxiety disorder. Patient completed course of antibiotics for aspiration pneumonia and leukocytosis resolved. Patient has a history of seizure, Ativan 2 mg added as needed, but has not required any medication. Normocytic anemia resolved and upper GI bleed ruled out as hemoglobin hematocrit are within normal limits. Patient's metabolic acidosis, nonanion gap resolved. NATALIE resolved. Patient A1c presented with rhabdomyolysis started on normal saline maintenance and later DC'd once CK levels improved. Mild transaminitis improved. EKG QT 491 was tracked and improved to 264. Patient is currently cleared medically and pending psychiatric evaluation with a possible transfer to [facility]. Instructions: Continue Gabapentin 300 mg oral TID Sertraline 50 mg oral once a night Stop all other psychiatry medication until you follow up with your psychiatrist for further evaluation. -Please follow up with your primary care provider within one week of discharge -If your symptoms worsen,please seek immediate medical attention and return to your nearest emergency room -If you do not have a primary care provider, you may follow up at the [facility] at [address] [place] [address] [address], [place] [address], Disposition: possible transfer to psychiatry facility Diagnosis: #Acute Metabolic Encephalopathy secondary to psychic medication, resolved. #Intentional Overdose #Possible SI Attempt #history of Seizures, stable #Aspiration Pneumonia, resolved #Leukocytosis, resolved #Generalized Anxiety Disorder #History of Seizures, stable #Normocytic Anemia , resolved. #Upper GI Bleed, ruled out. #Non anion gap, metabolic acidosis, resolved. #NATALIE, resolved #Rhabdomyolysis, Resolved. #Mild Transaminitis, Resolved - - Patient's care was discussed with my attending physician, Dr. Arianna Ross MD Internal Medicine PGY-3 Status at Discharge Functional status at discharge: independent ambulation Overall status at discharge: patient is back to baseline Time Spent with Patient Time attestation: Total time spent providing and/or coordinating discharge services: Time spent: Greater than 30 minutes Exam Vital Signs Temp Pulse Resp BP Pulse Ox O2 Del Method O2 Flow Rate 97.2 F 61 16 141/94 H 96 Room Air 5 04/26/24 08:00 04/26/24 09:02 04/26/24 09:02 04/26/24 08:00 04/26/24 08:00 04/26/24 08:00 04/22/24 04:10 Narrative Exam General Appearance: Alert & Oriented X3, well-nourished male who is lying in bed in no acute distress HEENT: Skull symmetrical and atraumatic. Conjunctivae pin and moist. Pupils equal, round, reactive to light and accommodation (PERRL). External ear without lesion or discharge. Straight, nares patient, mucosa pink, no discharge. No thyroid nodule appreciated. Cardio: Normal Rate and Rhythm with S1 and S2 heart sounds. No murmurs or extra heart sounds auscultated. No bruits on carotid auscultation. No peripheral edema or cyanosis. Lungs: Symmetric with good expansion. Chest and back non-tender. Breath sounds vesicular without crackles, wheezing or rhonchi Abdomen: Non-tender, Non-distended, Normal Reactive Bowel Sounds Neuro: Alert, cooperative, oriented to person, place, and time. Speech clear. CN grossly intact. Upper motor strength 5/5 and Lower motor strength 5/5. Sensation intact. Discharge Plan Plan Patient Disposition: [facility] Facility Care Plan Goals: Instructions: Continue Gabapentin 300 mg oral TID Sertraline 50 mg oral once a night Stop all other psychiatry medication until you follow up with your psychiatrist for further evaluation. -Please follow up with your primary care provider within one week of discharge -If your symptoms worsen,please seek immediate medical attention and return to your nearest emergency room -If you do not have a primary care provider, you [facility] [address], [place] [address], Disposition: possible transfer to psychiatry facility Prescriptions/Referrals Prescriptions/Med Rec: New gabapentin 300 mg capsule 300 mg PO TID 30 Days Qty: 90 0RF sertraline 50 mg tablet 50 mg PO HS 30 Days Qty: 30 0RF Discontinued sertraline [Zoloft] 100 mg Tablet 100 mg PO QDAY Hold Instructions: Resume on 04/21/24. Hold until you see your PCP trazodone 300 mg tablet 300 mg PO HSPRN PRN (Reason: Insomnia) Hold Instructions: Resume on 04/21/24. Hold until you see your PCP Patient Comments: TAKE 1 TABLET BY MOUTH EVERY DAY AT BEDTIME NEEDED gabapentin 300 mg capsule 600 mg PO 3XD Hold Instructions: Resume on 04/21/24. Hold until you see your PCP Patient Comments: TAKE 2 CAPSULES BY MOUTH 3 TIMES A DAY Referrals: King Faustin([facility]), [Primary Care Provider] - Patient/Caregiver Discharge Instructions Print Language: Kyrgyz Stand Alone Forms: Catherine Award Info., Patient Portal Info Letter Discharge Order Discharge Orders: Discharge (Routine); Ordered 04/25/24 Ordered By: Terrance Meadows Quality Discharge Quality Measures VTE prophylaxis MD Attestestation MD Attestation I have examined the patient, reviewed labs and imaging findings, discussed the case with the resident(s), and reviewed entered orders. I agree with the plan of care as outlined in this note. Dr. Keller
== END 2024-04-26 09:59 | DRG 817 ==
LOC: SERX 17:41 → SERHOLD 18:50 → S2NX 21:51 → S3NX 04-21 03:13
PROVIDERS: Student in an Organized Health Care Education/Training Program; Admitting Provider Student in an Organized Health Care Education/Training Program; Emergency Provider Emergency Medicine; PCP Family Medicine; Visit Provider Student in an Organized Health Care Education/Training Program
DX: T43.222A Poisoning by selective serotonin reuptake inhibitors, intentional self-harm, initial encounter (principal); G47.00 Insomnia, unspecified; J69.0 Pneumonitis due to inhalation of food and vomit; N17.9 Acute kidney failure, unspecified; G92.8 Other toxic encephalopathy; E87.20 Acidosis, unspecified; N25.89 Other disorders resulting from impaired renal tubular function; I10 Essential (primary) hypertension; I95.9 Hypotension, unspecified; F41.1 Generalized anxiety disorder; R56.9 Unspecified convulsions; T42.6X2A Poisoning by other antiepileptic and sedative-hypnotic drugs, intentional self-harm, initial encounter; T42.4X2A Poisoning by benzodiazepines, intentional self-harm, initial encounter; T43.212A Poisoning by selective serotonin and norepinephrine reuptake inhibitors, intentional self-harm, initial encounter; M62.82 Rhabdomyolysis; D64.9 Anemia, unspecified; Z79.899 Other long term (current) drug therapy; Z56.0 Unemployment, unspecified; Z88.0 Allergy status to penicillin; Z91.51 Personal history of suicidal behavior; Y92.009 Unspecified place in unspecified non-institutional (private) residence as the place of occurrence of the external cause
CPT/HCPCS: 36415; 36600; 70450; 71045; 80053; 80061; 80074; 80202; 80307; 80320; 80329; 81001; 82140; 82436; 82550; 82570; 82803; 83036; 83605; 83690; 83735; 84100; 84133; 84145; 84295; 84300; 84439; 84443; 84484; 85025; 86703; 87040; 87081; 87205; 87502; 87811; 92526; 92610; 93005; 93225; 95816; 96127; 96361; 96365; 96368; 96372; 96375; 97162; 99285; J0692; J0696; J1643; J2405; J2550; J3370; J3475; J3490; J7030; J7040; J7050; J7120; A9270; G0480; J1836